=== PATIENT | female | born 1955 | race African-American/Black ===

== ENCOUNTER → 2016-04-26 | Outpatient (CLI) | payer OTHER ==
[~2016-04-26] MED LIST: ACYC800T PO; ALBU6.7H INH; AMLO5 PO; CARB1DRO RIGHT EYE; CIPR-9 PO; DOCU100C PO; ERYTOIN10 LEFT EYE; FERR83TA; FIBE625T10 PO; FLUT50SP EACH NARE; FURO20TA PO; HYDR25TA5 PO; KETO60IN6 IM; METH125I2 IM; MULTTAB24; NAPR220T9 PO; POTA99TA; PRED1 PO; PRED10 PO; PRED1SUS LEFT EYE; PRED1SUS6 LEFT EYE; PRED20 PO; PRED5TAB PO; TRAM50TA PO; TRIF1SOL3 LEFT EYE; ULTR50TA5 PO
[2016-04-26 10:08] LABS: AUTOMATED NEUTROPHIL # 7.2 TH/MM3 (1.8-7.7); BASOPHIL % 0.5 % (0.0-2.0); EOSINOPHIL # 0.2 TH/MM3 (0-0.4); EOSINOPHIL % 2.2 % (0.0-4.0); HEMATOCRIT 41.1 % (35.0-46.0); HEMO FLAGS AUTO DIFF; LYMPH % 15.5 % (9.0-44.0); LYMPHOCYTE # 1.4 TH/MM3 (1.0-4.8); MEAN CELL VOLUME 74.3 FL (80.0-100.0); MEAN CORPUSCULAR HEMOGLOBIN 24.2 PG (27.0-34.0); MEAN CORPUSCULAR HGB CONC 32.6 % (32.0-36.0); MONO % 4.2 % (0.0-8.0); NEUT % 77.6 % (16.0-70.0); PLATELET COUNT 189 TH/MM3 (150-450); RED BLOOD COUNT 5.53 MIL/MM3 (4.00-5.30); RED CELL DISTRIBUTION WIDTH 14.5 % (11.6-17.2); WHITE BLOOD COUNT 9.3 TH/MM3 (4.0-11.0)
[2016-04-26 10:27] LABS: ALT (GPT) 41 U/L (10-53); ANION GAP 10 MEQ/L (5-15); AST (GOT) 22 U/L (15-37); BICARBONATE 25.3 MEQ/L (21.0-32.0); BLOOD UREA NITROGEN 13 MG/DL (7-18); CHLORIDE 105 MEQ/L (98-107); GLOMERULAR FILTRATION RATE 83 ML/MIN (>89); GLUCOSE,FASTING 88 MG/DL (74-99); POTASSIUM 3.1 MEQ/L (3.5-5.1); SODIUM (NA) 140 MEQ/L (136-145)
[2016-04-26 10:37] LABS: ALKALINE PHOSPHATASE 69 U/L (45-117); HDL CHOLESTEROL 110.2 MG/DL (40.0-60.0); LDL CHOLESTEROL 70 MG/DL (0-99); TOTAL BILIRUBIN ADULT 0.5 MG/DL (0.2-1.0)
[2016-04-26 11:02] LABS: SCAN/DIFF AUTO DIFF CONFIRMED
== END ==
LOC: CLAB 09:21
PROVIDERS: ATTEND Family Medicine
DX: I50.9 Heart failure, unspecified (principal); J44.1 Chronic obstructive pulmonary disease with (acute) exacerbation; M54.30 Sciatica, unspecified side; F17.200 Nicotine dependence, unspecified, uncomplicated
CPT/HCPCS: 36415; 80053; 80061; 84443; 85025

== ENCOUNTER 2016-05-03 09:35 | Emergency (ER) | payer OTHER ==
[~2016-05-03] VITALS: Ht 160 cm; Wt 70.0 kg
[~2016-05-03 09:35] MED LIST changes: -ACYC800T PO; -AMLO5 PO; -CARB1DRO RIGHT EYE; -ERYTOIN10 LEFT EYE; -FIBE625T10 PO; -FLUT50SP EACH NARE; -HYDR25TA5 PO; -KETO60IN6 IM; -METH125I2 IM; -PRED1 PO; -PRED1SUS LEFT EYE; -PRED1SUS6 LEFT EYE; -PRED20 PO; -PRED5TAB PO; -TRAM50TA PO; -TRIF1SOL3 LEFT EYE; -ULTR50TA5 PO
[2016-05-03 09:53] VITALS: BP 169/78; PULSE 78; RESP 16; TEMP 98.4; O2SAT 97
[2016-05-03] MEDS ORDERED: PROPARACAINE HCL 0.5% OPHT SOLN 15 ML BTL EACH EYE ONE (11:15)
--- NOTE | 2016-05-03 11:19 | PD ---
HPI Chief Complaint: Eye Problems/Injury Time Seen by Provider: 11:16 Travel History International Travel<30 days: No Contact w/Intl Traveler<30days: No Traveled to known affect area: No History of Present Illness HPI 60-year-old female presents to the emergency department for evaluation of left eye pain, watery drainage, photophobia, foreign body sensation is started on Tuesday, 5 days ago, but has worsened. Patient states she was reading glasses , but denies any eye issues. Patient states that the pain has been worsening. Patient reports a history of COPD and takes prednisone, Lasix. Patient denies any eye pressure. She states her vision is blurry. PFSH Past Medical History Asthma: Yes Depression: Yes Heart Rhythm Problems: Yes (IRREGULAR HEART BEAT) Cardiac Catheterization: No Cardiovascular Problems: Yes COPD: Yes Diabetes: No Diminished Hearing: No Gastrointestinal Disorders: No Genitourinary: No Hypertension: No Musculoskeletal: Yes Neurologic: No Respiratory: No ?: Not Menopausal: Yes : 7 Para: 6 Tubal Ligation: Yes Past Surgical History Coronary Artery Bypass Graft: No Pacemaker: No Other Surgery: No Social History Alcohol Use: Yes (OCC) Tobacco Use: Yes (03/22 PPD) Substance Use: No Allergies-Medications (Allergen,Severity, Reaction): Coded Allergies: Lortab (Verified Allergy, Severe, ITCHING "BUT I CAN TAKE WITH A BENADRYL ", 05/03/16) Morphine (Verified Adverse Reaction, Severe, Nausea/Vomiting/ITCH, 05/03/16 ) Reported Meds & Prescriptions Reported Meds & Active Scripts Active Furosemide 20 Mg Tab 20 Mg PO DAILY Reported Prednisone 10 Mg Tab 10 Mg PO DAILY Multi For Her (Multiple Vitamins W/ Minerals) 1 Tab Tab Proventil Hfa 6.7 GM Inh (Albuterol Sulfate) 90 Mcg/Act Aer 2 Puff INH Q4-6H PRN Review of Systems Except as stated in HPI: all other systems reviewed are Neg Physical Exam Narrative GENERAL: Well-developed well-nourished female patient, ambulatory. Afebrile. SKIN: Warm and dry. HEAD: Normocephalic. Atraumatic. EYES: No scleral icterus. Mild erythematous to the right sclera. PERRLA. EOM intact. No consensual photophobia, patient has mild photophobia in the left eye. No hyphema. No foreign body on upper lid eversion. Fluorescein examination shows a corneal abrasion the 3 o'clock position. IOP is 20/100 in the right eye 14 the left eye. Visual acuity is 20/70 and the left eye and 20/ 20 in the right eye. NECK: Supple, trachea midline. No JVD or lymphadenopathy. CARDIOVASCULAR: Regular rate and rhythm without murmurs, gallops, or rubs. RESPIRATORY: Breath sounds equal bilaterally. No accessory muscle use. Lungs sounds are clear to auscultation. GASTROINTESTINAL: Abdomen soft, non-tender, nondistended. MUSCULOSKELETAL: No cyanosis, or edema. BACK: Nontender without obvious deformity. No CVA tenderness. Data Data Last Documented VS Vital Signs Date Time Temp Pulse Resp B/P Pulse Ox O2 Delivery O2 Flow Rate FiO2 05/03/16 09:53 98.4 78 16 169/78 97 Orders Proparacaine 0.5% Opth Soln (Alcaine 0.5 (05/03/16 11:15) MDM Medical Decision Making Medical Screen Exam Complete: Yes Emergency Medical Condition: Yes Medical Record Reviewed: Yes Differential Diagnosis Iritis versus acute glaucoma versus corneal abrasion versus corneal ulcer versus conjunctivitis versus foreign body Narrative Course 60-year-old female presents to the emergency department for evaluation of left eye pain, drainage, photophobia, blurry vision that started 5 days ago and has been worsening. Visual acuity is 20/200 and the left eye 20/20 in the right eye. IOP is 20/100 in the right eye of 14 in the left eye. Fluorescein examination shows a corneal abrasion over the 3 o'clock position. Visual acuity was rechecked once pain is relieved and patient is noted to have 20/70 visual acuity in the left eye. She'll be discharged with a prescription for erythromycin ophthalmic ointment, tramadol for pain. Patient states that Lortab and morphine make her itch. She denies any anaphylaxis reaction. She is instructed to follow-up with an maintenance technician 2nd shift. I given her the name and number of our maintenance technician 2nd shift on-call today, Dr. Lagos. Patient is instructed to return for any acute worsening of symptoms. Patient is agreeable. Diagnosis Primary Impression: Corneal abrasion, left Qualified Code: S05.02XA - Corneal abrasion, left, initial encounter Referrals: Griselda Lagos MD 2 days Patient Instructions: Corneal Abrasion (ED), General Instructions Additional Instructions: Use erythromycin eye ointment as directed. Avoid rubbing your eye. Take tramadol as instructed as needed for pain. Caution this can make you drowsy so do not drive after taking. Follow-up with an maintenance technician 2nd shift. Dr. Lagos is our maintenance technician 2nd shift on-call today. Please call her office today to make an appointment. Return to the emergency department for any acute worsening of symptoms. Med/Other Pt SpecificInfo: Prescription(s) given Scripts Erythromycin Opth Oint 5 Mg/Gm Oint1 Applic LEFT EYE QID #1 TUBE Ref 0 Prov:Aracelis Park 05/03/16 Tramadol 50 Mg Tab50 Mg PO Q6H PRN (PAIN) #16 TAB Ref 0 Prov:Marita Sanabria MD 05/03/16 Disposition: 01 DISCHARGE HOME Condition: Stable Aracelis Park May 03, 2016 11:19
[2016-05-03] MEDS ORDERED: TRAM50TA PO (12:03)
[2016-05-03] MEDS ORDERED: ERYTOIN10 LEFT EYE (12:12)
[2016-05-11] MEDS ORDERED: DOCU100C PO (10:13)
[2016-06-10] MEDS ORDERED: PRED1SUS LEFT EYE (08:57)
[2016-06-10] MEDS ORDERED: TRIF1SOL3 LEFT EYE (08:57)
[2016-06-15] MEDS ORDERED: PRED5TAB PO (10:25)
[2016-06-15] MEDS ORDERED: FLUT50SP EACH NARE (10:25)
[2016-06-22] MEDS ORDERED: ACYC800T PO (10:13)
[2016-06-22] MEDS ORDERED: PRED1SUS LEFT EYE (10:13)
[2016-07-15] MEDS ORDERED: PRED10 PO (10:45)
[2016-07-15] MEDS ORDERED: CARB1DRO RIGHT EYE (10:45)
[2016-07-15] MEDS ORDERED: PRED1SUS LEFT EYE (10:45)
[2016-07-22] MEDS ORDERED: FIBE625T10 PO (10:41)
[2016-07-22] MEDS ORDERED: PRED10 PO (10:58)
[2016-07-22] MEDS ORDERED: KETO60IN6 IM (10:59)
[2016-07-22] MEDS ORDERED: METH125I2 IM (10:59)
[2016-07-26] MEDS ORDERED: PRED1SUS6 LEFT EYE (10:05)
[2016-09-07] MEDS ORDERED: PRED10 PO (13:02)
[2016-09-16] MEDS ORDERED: PRED1SUS6 LEFT EYE (14:35)
[2016-09-16] MEDS ORDERED: PRED20 PO (15:15)
== END 2016-05-03 12:35 | disposition home or self-care (01) ==
LOC: NEPB 09:35
DX: H57.12 Ocular pain, left eye (principal); S05.02XA Injury of conjunctiva and corneal abrasion without foreign body, left eye, initial encounter; J44.9 Chronic obstructive pulmonary disease, unspecified; H53.8 Other visual disturbances; F17.210 Nicotine dependence, cigarettes, uncomplicated; J45.909 Unspecified asthma, uncomplicated
CPT/HCPCS: 99283

== ENCOUNTER 2016-05-08 12:31 | Emergency (ER) | payer OTHER ==
[~2016-05-08 12:31] MED LIST changes: -CIPR-9 PO; -DOCU100C PO; +ERYTOIN10 LEFT EYE; -FERR83TA; -NAPR220T9 PO; -POTA99TA; +TRAM50TA PO
[2016-05-08 12:39] VITALS: BP 167/67; PULSE 58; RESP 20; TEMP 97.5; O2SAT 94
--- NOTE | 2016-05-08 13:37 | PD ---
HPI Chief Complaint: Eye Problems/Injury Time Seen by Provider: 13:37 Travel History International Travel<30 days: No Contact w/Intl Traveler<30days: No Traveled to known affect area: No History of Present Illness HPI 60-year-old female presents to the emergency Department with complaint of continued left eye pain since Tuesday. She was seen here on Tuesday and diagnosed with a left corneal abrasion. She filled her prescription for erythromycin and started on Tuesday. She has had continued pain and clear drainage from her eye. She has been using the erythromycin since Tuesday as prescribed. She has not followed up with ophthalmology. She has prescription for tramadol for pain and says that it is not helping the pain. She has tried patching her eye with no improvement. She reports photophobia. Denies fever, chills, nausea, vomiting. Allergies to Lortab, morphine. No other modifying factors or associated signs and symptoms. PFSH Past Medical History Asthma: Yes Depression: Yes Heart Rhythm Problems: Yes (IRREGULAR HEART BEAT) Cardiac Catheterization: No Cardiovascular Problems: Yes COPD: Yes Diabetes: No Diminished Hearing: No Gastrointestinal Disorders: No Genitourinary: No Hypertension: No Musculoskeletal: Yes Neurologic: No Respiratory: No Menopausal: Yes : 7 Para: 6 Tubal Ligation: Yes Past Surgical History Coronary Artery Bypass Graft: No Pacemaker: No Other Surgery: No Social History Alcohol Use: Yes (OCC) Tobacco Use: Yes (/2 PPD) Substance Use: No Allergies-Medications (Allergen,Severity, Reaction): Coded Allergies: Lortab (Verified Allergy, Severe, ITCHING "BUT I CAN TAKE WITH A BENADRYL ", 05/08/16) Morphine (Verified Adverse Reaction, Severe, Nausea/Vomiting/ITCH, 05/08/16 ) Reported Meds & Prescriptions Reported Meds & Active Scripts Active Erythromycin Opth Oint 5 Mg/Gm Oint 1 Applic LEFT EYE QID Tramadol (Tramadol HCl) 50 Mg Tab 50 Mg PO Q6H PRN Furosemide 20 Mg Tab 20 Mg PO DAILY Reported Prednisone 10 Mg Tab 10 Mg PO DAILY Multi For Her (Multiple Vitamins W/ Minerals) 1 Tab Tab Proventil Hfa 6.7 GM Inh (Albuterol Sulfate) 90 Mcg/Act Aer 2 Puff INH Q4-6H PRN Review of Systems Except as stated in HPI: all other systems reviewed are Neg Physical Exam Narrative GENERAL: Well-nourished, well-developed -Maldivian female patient, in no acute distress SKIN: Warm and dry. HEAD: Atraumatic. Normocephalic. EYES: Pupils equal and round at 3 mm with brisk reaction. PERRLA. EOMI. Left lid eversion with no foreign body noted. Left eye with scleral erythema and no lid edema. No orbital tenderness, erythema or cellulitis. Left eye with photophobia. No consensual photophobia. No scleral icterus. Clear drainage. [place] lamp exam reveals a corneal abrasion strait across the iris and pupil from the 3:00 to 9 o'clock position. ENT: Mucosa pink and moist. Airway patent. NECK: Trachea midline. CARDIOVASCULAR: Regular rate. RESPIRATORY: No accessory muscle use. GASTROINTESTINAL: Rounded. NEUROLOGICAL: Awake and alert. Oriented 3. No obvious cranial nerve deficits. Motor grossly within normal limits. Normal speech. PSYCHIATRIC: Appropriate mood and affect; insight and judgment normal. Data Data Last Documented VS Vital Signs Date Time Temp Pulse Resp B/P Pulse Ox O2 Delivery O2 Flow Rate FiO2 05/08/16 12:39 97.5 58 20 167/67 94 Orders Proparacaine 0.5% Opth Soln (Alcaine 0.5 (05/08/16 14:15) Dressing, Oval Eye Pad Ea (05/08/16 14:05) Mandatory Outpatient Referral (05/08/16 14:05) [facility] Medical Decision Making Medical Screen Exam Complete: Yes Emergency Medical Condition: Yes Medical Record Reviewed: Yes Differential Diagnosis Corneal abrasion, medical clearance, pain management Narrative Course 60-year-old female with left corneal abrasion. She was seen on Tuesday for the same diagnosis. She has not followed up with ophthalmology. She started the erythromycin ointment on Tuesday and has not had improvement in pain. [place] lamp exam concludes left corneal abrasion over the iris and pupil. Patient has prescription for erythromycin ointment. Mandatory outpatient referral to ophthalmology ordered. Eye patch applied. Instructed patient to continue azithromycin as prescribed and to follow-up with ophthalmology first thing on Tuesday morning. Patient verbalized understanding and agreement with treatment plan. Patient has prescription for tramadol. Patient is medically cleared and stable for discharge. Discussed reasons to return to the emergency department. Instructed patient to follow up with primary care provider. Patient agrees with treatment plan. The patients vital signs are stable and the patient is stable for outpatient follow-up and treatment. Patient discharged home, stable and in no acute distress. Diagnosis Primary Impression: Corneal abrasion, left Qualified Code: S05.02XD - Corneal abrasion, left, subsequent encounter Referrals: Griselda Lagos MD Primary Care Physician Patient Instructions: Corneal Abrasion (ED), General Instructions Departure Forms: Tests/Procedures, Work Release Enter return to work date: May 11, 2016 Additional Instructions: Ibuprofen or Tylenol as directed and as needed to reduce pain Do not patch the eye Do not rub the eye Refrigerate eye drops as needed to reduce pain Cool compresses to the eye as needed to reduce pain Follow-up with ophthalmology on Tuesday; Dr. Angy Lagos information is provided in your discharge instructions. Call to make an appointment on Tuesday05/10/2016 morning. Primary care provider Return to the emergency department immediately with worsening of symptoms Med/Other Pt SpecificInfo: No Change to Meds, No Meds Exist/No RX given Disposition: DISCHARGE HOME Condition: Stable Jessica Silva May 08, 2016 13:37
[2016-05-08] MEDS ORDERED: PROPARACAINE HCL 0.5% OPHT SOLN 15 ML BTL LEFT EYE ONE (14:15)
[2016-05-11] MEDS ORDERED: DOCU100C PO (10:13)
[2016-06-10] MEDS ORDERED: PRED1SUS LEFT EYE (08:57)
[2016-06-10] MEDS ORDERED: TRIF1SOL3 LEFT EYE (08:57)
[2016-06-15] MEDS ORDERED: FLUT50SP EACH NARE (10:25)
[2016-06-15] MEDS ORDERED: PRED5TAB PO (10:25)
[2016-06-22] MEDS ORDERED: ACYC800T PO (10:13)
[2016-06-22] MEDS ORDERED: PRED1SUS LEFT EYE (10:13)
[2016-07-15] MEDS ORDERED: PRED10 PO (10:45)
[2016-07-15] MEDS ORDERED: PRED1SUS LEFT EYE (10:45)
[2016-07-15] MEDS ORDERED: CARB1DRO RIGHT EYE (10:45)
[2016-07-22] MEDS ORDERED: FIBE625T10 PO (10:41)
[2016-07-22] MEDS ORDERED: PRED10 PO (10:58)
[2016-07-22] MEDS ORDERED: METH125I2 IM (10:59)
[2016-07-22] MEDS ORDERED: KETO60IN6 IM (10:59)
[2016-07-26] MEDS ORDERED: PRED1SUS6 LEFT EYE (10:05)
[2016-09-07] MEDS ORDERED: PRED10 PO (13:02)
[2016-09-16] MEDS ORDERED: PRED1SUS6 LEFT EYE (14:35)
[2016-09-16] MEDS ORDERED: PRED20 PO (15:15)
== END 2016-05-08 14:27 | disposition home or self-care (01) ==
LOC: NEPB 12:31
DX: S05.02XD Injury of conjunctiva and corneal abrasion without foreign body, left eye, subsequent encounter (principal); F17.200 Nicotine dependence, unspecified, uncomplicated; Z87.09 Personal history of other diseases of the respiratory system; Z86.59 Personal history of other mental and behavioral disorders; Z86.79 Personal history of other diseases of the circulatory system; Z87.39 Personal history of other diseases of the musculoskeletal system and connective tissue; X58.XXXD Exposure to other specified factors, subsequent encounter
CPT/HCPCS: 99283

== ENCOUNTER 2016-05-21 09:49 | Inpatient (IN) | payer OTHER ==
[~2016-05-21] VITALS: Ht 160 cm; Wt 72.5 kg
[~2016-05-21 09:49] MED LIST changes: +DOCU100C PO
[2016-05-21 09:52] VITALS: BP 171/98; PULSE 76; RESP 20; TEMP 98; O2SAT 97
[2016-05-21 10:30] VITALS: BP 180/100; PULSE 62; RESP 16; O2SAT 95
--- NOTE | 2016-05-21 10:54 | PD ---
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 Griselda Lagos for IV acyclovir and pain control. Pt was evaluated by Dr. Lagos at her office today and is no improvement with patching and erythromycin ointment. I discussed with Dr. Lagos and she needs acyclovir IV/PO and ganciclovir gel but she cannot afford it and needs to be sent here for further management. Pt denies any fever, chest pain, sob, n/v, abdominal pain, focal weakness or numbness. PFSH Past Medical History Asthma: Yes Depression: Yes Heart Rhythm Problems: Yes (IRREGULAR HEART BEAT) Cardiac Catheterization: No Cardiovascular Problems: Yes COPD: Yes Diabetes: No Diminished Hearing: No Gastrointestinal Disorders: No Genitourinary: No Hypertension: No Musculoskeletal: Yes Neurologic: No Respiratory: No Tetanus Vaccination: > 5 Years Influenza Vaccination: Yes Menopausal: Yes : 7 Para: 6 Tubal Ligation: Yes Past Surgical History Coronary Artery Bypass Graft: No Pacemaker: No Other Surgery: No Family History Family Myocardial Infarction: Yes (Mother at 53 from [place]) Social History Alcohol Use: Yes (OCC) Tobacco Use: Yes (2 PPD) Substance Use: No Allergies-Medications (Allergen,Severity, Reaction): Coded Allergies: Lortab (Verified Allergy, Severe, ITCHING "BUT I CAN TAKE WITH A BENADRYL ", 05/21/16) Morphine (Verified Adverse Reaction, Severe, Nausea/Vomiting/ITCH, 05/21/16) Reported Meds & Prescriptions Reported Meds & Active Scripts Active Erythromycin Opth Oint 5 Mg/Gm Oint 1 Applic LEFT EYE QID Tramadol (Tramadol HCl) 50 Mg Tab 50 Mg PO Q6H PRN Furosemide 20 Mg Tab 20 Mg PO DAILY Reported Docusate Sodium 100 Mg Cap 300 Mg PO DAILY Prednisone 10 Mg Tab 10 Mg PO DAILY Multi For Her (Multiple Vitamins W/ Minerals) 1 Tab Tab Proventil Hfa 6.7 GM Inh (Albuterol Sulfate) 90 Mcg/Act Aer 2 Puff INH Q4-6H PRN Review of Systems Except as stated in HPI: all other systems reviewed are Neg Physical Exam Narrative GENERAL: 60yo F in distress. SKIN: Warm and dry. HEAD: Atraumatic. Normocephalic. EYES: Left eye: Hazy cornea with injected conjunctiva. +Irregular large fluorescein uptake in middle of cornea in left eye. CARDIOVASCULAR: Regular rate and rhythm. No murmur appreciated. RESPIRATORY: No accessory muscle use. Clear to auscultation. Breath sounds equal bilaterally. GASTROINTESTINAL: Abdomen soft, non-tender, nondistended. Hepatic and splenic margins not palpable. MUSCULOSKELETAL: No obvious deformities. No clubbing. No cyanosis. No edema. NEUROLOGICAL: Awake and alert. No obvious cranial nerve deficits. Motor grossly within normal limits. Normal speech. PSYCHIATRIC: Appropriate mood and affect; insight and judgment normal. Data Data Last Documented VS Vital Signs Date Time Temp Pulse Resp B/P Pulse Ox O2 Delivery O2 Flow Rate FiO2 05/21/16 10:32 62 16 05/21/16 10:30 180/100 95 Room Air 05/21/16 09:52 98.0 Orders Complete Blood Count With Diff (05/21/16 10:44) Basic Metabolic Panel (Bmp) (05/21/16 10:44) Acyclovir Inj (Zovirax Inj) (05/21/16 11:00) Ketorolac Inj (Toradol Inj) (05/21/16 11:00) Consult Ophthalmology (05/21/16 ) (Hub Use Only)Inp Phy Cons/Ref (05/21/16 ) Labs Laboratory Tests Test 05/21/16 11:02 White Blood Count 9.9 TH/MM3 Red Blood Count 5.42 MIL/MM3 Hemoglobin 13.0 GM/DL Hematocrit 41.4 % Mean Corpuscular Volume 76.4 FL Mean Corpuscular Hemoglobin 24.0 PG Mean Corpuscular Hemoglobin 31.4 % Concent Red Cell Distribution Width 14.2 % Platelet Count 213 TH/MM3 Mean Platelet Volume 9.3 FL Neutrophils (%) (Auto) 65.4 % Lymphocytes (%) (Auto) 26.2 % Monocytes (%) (Auto) 6.3 % Eosinophils (%) (Auto) 1.7 % Basophils (%) (Auto) 0.4 % Neutrophils # (Auto) 6.5 TH/MM3 Lymphocytes # (Auto) 2.6 TH/MM3 Monocytes # (Auto) 0.6 TH/MM3 Eosinophils # (Auto) 0.2 TH/MM3 Basophils # (Auto) 0.0 TH/MM3 CBC Comment AUTO DIFF Differential Comment AUTO DIFF CONFIRMED Ovalocytes 2+ Sodium Level 140 MEQ/L Potassium Level 3.8 MEQ/L Chloride Level 109 MEQ/L Carbon Dioxide Level 20.4 MEQ/L Anion Gap 11 MEQ/L Blood Urea Nitrogen 11 MG/DL Creatinine 0.80 MG/DL Estimat Glomerular Filtration 89 ML/MIN Rate Random Glucose 86 MG/DL Calcium Level 9.0 MG/DL MDM Medical Decision Making Medical Screen Exam Complete: Yes Emergency Medical Condition: Yes Differential Diagnosis Herpes simplex keratitis Narrative Course 60yo F sent in by special technical operations officer for IV acyclovir and treatment for severe herpes simplex keratitis. I discussed with Dr. Lagos and she states that she will follow the patient while she is inpatient. Pt given toradol which helped with pain. Pt given given acyclovir 800mg IV. Labs reviewed, no leukocytosis. BMP unremarkable. Discussed with resident physician and accepted to their service. Diagnosis Primary Impression: Herpes simplex keratitis of left eye Admitting Information Admitting Physician Requests: it Aishwarya Nathan DO May 21, 2016 10:54
[2016-05-21] MEDS ORDERED: SODIUM CHLORIDE 0.9% IV ONE (11:00)
[2016-05-21] MEDS ORDERED: ACYCLOVIR IV ONE (11:00)
[2016-05-21] MEDS ORDERED: KETOROLAC TROMETHAMINE 30 MG/ML (IVP) VIAL IV PUSH ONE (11:00)
[2016-05-21 11:16] LABS: AUTOMATED NEUTROPHIL # 6.5 TH/MM3 (1.8-7.7); BASOPHIL % 0.4 % (0.0-2.0); EOSINOPHIL # 0.2 TH/MM3 (0-0.4); EOSINOPHIL % 1.7 % (0.0-4.0); HEMATOCRIT 41.4 % (35.0-46.0); LYMPH % 26.2 % (9.0-44.0); LYMPHOCYTE # 2.6 TH/MM3 (1.0-4.8); MEAN CELL VOLUME 76.4 FL (80.0-100.0); MEAN CORPUSCULAR HGB CONC 31.4 % (32.0-36.0); MONO % 6.3 % (0.0-8.0); NEUT % 65.4 % (16.0-70.0); PLATELET COUNT 213 TH/MM3 (150-450); RED BLOOD COUNT 5.42 MIL/MM3 (4.00-5.30); RED CELL DISTRIBUTION WIDTH 14.2 % (11.6-17.2); WHITE BLOOD COUNT 9.9 TH/MM3 (4.0-11.0)
[2016-05-21 11:17] LABS: HEMO FLAGS AUTO DIFF
[2016-05-21 11:26] LABS: BICARBONATE 20.4 MEQ/L (21.0-32.0); POTASSIUM 3.8 MEQ/L (3.5-5.1)
--- NOTE | 2016-05-21 11:44 | PD.CONS ---
History of Present Illness Service Ophthalmology Consult Requested By ED - Dr. Nathan Reason for Consult left eye HSV keratitis Primary Care Physician Carmel Raphael MD Diagnoses: History of Present Illness 60 yo F whom I've been following in my outpatient office the last 10 days for a left corneal abrasion. She states that she felt something fly into her eye and rubbed it and started having left eye irritation right after that. When I saw her on 05/10/16 she had a 5x5 mm corneal abrasion which we treated with erythromycin ointment and patching. It has progressively gotten worse since then , which makes it likely that there is an underlying HSV component. She presented to the office today in severe pain - she needs to be treated with oral acyclovir, ganciclovir gel, and pain control but states she cannot afford the medications so I sent her to [facility] for further care. Past Family Social History Allergies: Coded Allergies: Lortab (Verified Allergy, Severe, ITCHING "BUT I CAN TAKE WITH A BENADRYL ", 05/21/16) Morphine (Verified Adverse Reaction, Severe, Nausea/Vomiting/ITCH, 05/21/16) Physical Exam Vital Signs Vital Signs Date Time Temp Pulse Resp B/P Pulse Ox O2 Delivery O2 Flow Rate FiO2 05/21/16 10:32 62 16 05/21/16 10:30 62 16 180/100 95 Room Air 05/21/16 09:52 98.0 76 20 171/98 97 Room Air Physical Exam Va sc at near OD 20/20, OS 20/400 EOM full OU, no diplopia CVF full OU Pupils 2-1 no APD OU IOP deferred Anterior exam OD - normal eyelid, C/S W&Q, K clear, AC deep, pupil round, lens clear OS - eyelid edema, conj injection and chemosis, corneal edema and 8x8 mm epithelial defect, AC deep, pupil round, lens clear Laboratory Laboratory Tests Test 05/21/16 11:02 White Blood Count 9.9 Red Blood Count 5.42 Hemoglobin 13.0 Hematocrit 41.4 Mean Corpuscular Volume 76.4 Mean Corpuscular Hemoglobin 24.0 Mean Corpuscular Hemoglobin 31.4 Concent Red Cell Distribution Width 14.2 Platelet Count 213 Mean Platelet Volume 9.3 Neutrophils (%) (Auto) 65.4 Lymphocytes (%) (Auto) 26.2 Monocytes (%) (Auto) 6.3 Eosinophils (%) (Auto) 1.7 Basophils (%) (Auto) 0.4 Neutrophils # (Auto) 6.5 Lymphocytes # (Auto) 2.6 Monocytes # (Auto) 0.6 Eosinophils # (Auto) 0.2 Basophils # (Auto) 0.0 CBC Comment AUTO DIFF Sodium Level 140 Potassium Level 3.8 Chloride Level 109 Carbon Dioxide Level 20.4 Anion Gap 11 Blood Urea Nitrogen 11 Creatinine 0.80 Estimat Glomerular Filtration 89 Rate Random Glucose 86 Calcium Level 9.0 Result Diagram: 05/21/16 1102 05/21/16 1102 Assessment and Plan Problem List: (1) Herpes simplex keratitis of left eye Status: Acute Plan: Start IV Acyclovir 800 mg 5x/day, Ganciclovir gel in left eye 5 times a day, and pain control per primary team. Will follow daily. Griselda Lagos MD May 21, 2016 11:44
[2016-05-21 11:50] LABS: OVALOCYTES 2+ (NORMAL)
[2016-05-21 11:51] LABS: SCAN/DIFF AUTO DIFF CONFIRMED
--- NOTE | 2016-05-21 12:33 | HHI.HP ---
[facility] Service Family Medicine Primary Care Physician Carmel Raphael MD Admission Diagnosis Diagnoses: International Travel<30 Days: No Contact w/Intl Traveler<30days: No Known Affected Area: No History of Present Illness Patient is a 60-year-old female with a PMH significant for asthma/COPD. Presented here today from ophthalmology office due to worsening left eye pain. Patient is under the care of Dr. Lagos. She had been following Dr. Lagos due to left corneal abrasion that progressively worsened despite erythromycin ointment and patching. She was then found to have an underlying HSV component. Today she reports that her left eye pain has increased to the point that it is uncontrollable. Left eye pain is described as throbbing which then involves her entire head and neck. Light makes the pain worse but tramadol has been helping making light more tolerable. She otherwise is asymptomatic. She reports that she is able to see light, shapes, movement but unable to visualize detail with the left eye. Right eye will become fatigued due to overuse but otherwise vision is unchanged except for new onset floaters. (Sarahi Olmedo MD R2) Review of Systems Other ROS negative 10 except per history of present illness (Sarahi Olmedo MD R2) Past Family Social History Past Medical History Asthma/COPD-on prednisone Chronic Low back pain with left sciatica Illicit substance abuse Past Surgical History Spinal surgery of lower back 2002 Reported Medications Reported Meds & Active Scripts Active Erythromycin Opth Oint 5 Mg/Gm Oint 1 Applic LEFT EYE QID Tramadol (Tramadol HCl) 50 Mg Tab 50 Mg PO Q6H PRN Furosemide 20 Mg Tab 20 Mg PO DAILY Reported Docusate Sodium 100 Mg Cap 300 Mg PO DAILY Prednisone 10 Mg Tab 10 Mg PO DAILY Multi For Her (Multiple Vitamins W/ Minerals) 1 Tab Tab Proventil Hfa 6.7 GM Inh (Albuterol Sulfate) 90 Mcg/Act Aer 2 Puff INH Q4-6H PRN (Sarahi Olmedo MD R2) Allergies: Coded Allergies: Lortab (Verified Allergy, Severe, ITCHING "BUT I CAN TAKE WITH A BENADRYL ", 05/21/16) Morphine (Verified Adverse Reaction, Severe, Nausea/Vomiting/ITCH, 05/21/16) Family History Mother: from [place] in her 50s Father: from being hit by a car 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 Marijuana: 1-2x/week No history of IV drugs Smoked crack in the past, last use 5yrs ago. (Sarahi Olmedo MD R2) Physical Exam Vital Signs Vital Signs Date Time Temp Pulse Resp B/P Pulse Ox O2 Delivery O2 Flow Rate FiO2 05/21/16 10:32 62 16 05/21/16 10:30 62 16 180/100 95 Room Air 05/21/16 09:52 98.0 76 20 171/98 97 Room Air Physical Exam GENERAL: This is a well-nourished, well-developed patient, in no apparent distress. SKIN: No rashes, ecchymoses or lesions. Cool and dry. EYES: Full examination limited due to pain with light. Left eye with periorbital swelling and conjunctival erythema. Extraocular movements otherwise intact. Able to see movement, light, shapes with left eye but without detail. Right eye unremarkable. ENT: Nose without bleeding, purulent drainage or septal hematoma. Throat without erythema, tonsillar hypertrophy or exudate. Uvula midline. Airway patent. NECK: No lymphadenopathy. CARDIOVASCULAR: Regular rate and rhythm without murmurs, gallops, or rubs. RESPIRATORY: Clear to auscultation. Breath sounds equal bilaterally. No wheezes , rales, or rhonchi. GASTROINTESTINAL: Abdomen soft, non-tender, nondistended. No hepato-splenomegaly , or palpable masses. No guarding. MUSCULOSKELETAL: Extremities without clubbing, cyanosis, or edema. No calf tenderness. NEUROLOGICAL: Awake and alert. Motor and sensory grossly within normal limits.Normal speech. Laboratory Laboratory Tests Test 05/21/16 11:02 White Blood Count 9.9 Red Blood Count 5.42 Hemoglobin 13.0 Hematocrit 41.4 Mean Corpuscular Volume 76.4 Mean Corpuscular Hemoglobin 24.0 Mean Corpuscular Hemoglobin 31.4 Concent Red Cell Distribution Width 14.2 Platelet Count 213 Mean Platelet Volume 9.3 Neutrophils (%) (Auto) 65.4 Lymphocytes (%) (Auto) 26.2 Monocytes (%) (Auto) 6.3 Eosinophils (%) (Auto) 1.7 Basophils (%) (Auto) 0.4 Neutrophils # (Auto) 6.5 Lymphocytes # (Auto) 2.6 Monocytes # (Auto) 0.6 Eosinophils # (Auto) 0.2 Basophils # (Auto) 0.0 CBC Comment AUTO DIFF Differential Comment AUTO DIFF CONFIRMED Ovalocytes 2+ Sodium Level 140 Potassium Level 3.8 Chloride Level 109 Carbon Dioxide Level 20.4 Anion Gap 11 Blood Urea Nitrogen 11 Creatinine 0.80 Estimat Glomerular Filtration 89 Rate Random Glucose 86 Calcium Level 9.0 (Sarahi Olmedo MD R2) Result Diagram: 05/21/16 1102 05/21/16 1102 Assessment and Plan Assessment and Plan 60-year-old female with PMH significant for asthma/COPD. Admitted for severe left eye HSV keratitis Code Status Full Discussed Condition With Dr. Maharaj (Sarahi Olmedo MD R2) Attending Attestation Patient seen and examined. Case reviewed and discussed with the resident team. Agree with plan of care as discussed with me and documented in the resident note. 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 Lagos, marriage and family social worker. Treatment has been resistant over the last couple weeks. Due to worsening symptoms and continued pain, was referred to the ED for admission as patient needed IV antibiotics. -Consider head CT if patient worsens clinically or has more severe headaches despite pain control -Pain control with tramadol and Toradol for breakthrough -Ganciclovir gel is not in stock in the hospital. Calling pharmacy to see if it can be obtained Ophthalmology consulted: Appreciate recommendations * Left eye: eyelid edema, conj injection and chemosis, corneal edema and 8x8 mm epithelial defect * Start IV Acyclovir 800 mg 5x/day, Ganciclovir gel in left eye 5 times a day, and pain control per primary team. Will follow daily (2) COPD (chronic obstructive pulmonary disease) Status: Acute Plan: Long history of smoking and conjunction with a history of asthma. She also reports a history of pleural effusion/edema for which she takes Lasix daily -Continue home prednisone 10 mg daily and Lasix -Albuterol and Duonebs as needed -Incentive spirometry -Nicotine patch (3) Nutrition, metabolism, and development symptoms Status: Acute Plan: Diet: Regular Electrolytes: Unremarkable Fluids: None DVT prophylaxis: Lovenox GI prophylaxis: Protonix due to chronic prednisone use Chronic Conditions: * Alcohol use: CIWA protocol (Sarahi Olmedo MD R2) Physician Certification 2 Midnight Certification Type: Admission for Inpatient Services Order for Inpatient Services The services are ordered in accordance with Medicare regulations or non- Medicare payer requirements, as applicable. In the case of services not specified as inpatient-only, they are appropriately provided as inpatient services in accordance with the 2-midnight benchmark. Estimated LOS (days): 2 days is the estimated time the patient will need to remain in the hospital, assuming treatment plan goals are met and no additional complications. Post-Hospital Plan: Home (Sarahi Olmedo MD R2) Problem Qualifiers (1) COPD (chronic obstructive pulmonary disease): Qualified Code: J44.9 - Chronic obstructive pulmonary disease, unspecified COPD type Sarahi Olmedo MD R2 May 21, 2016 12:33 Jovanna Maharaj MD May 22, 2016 15:31
[2016-05-21] MEDS ORDERED: SODIUM CHLORIDE 0.9% FLUSH 5 ML FLUSH FLUSH PRN (13:15)
[2016-05-21] MEDS ORDERED: NALOXONE HCL 0.4 MG/ML AMP IV PRN ×2 (13:15)
[2016-05-21] MEDS ORDERED: ACETAMINOPHEN 325 MG TAB PO PRN (13:15)
[2016-05-21] MEDS ORDERED: ONDANSETRON HCL 4 MG/2 ML VIAL IVP PRN (13:15)
[2016-05-21] MEDS ORDERED: KETOROLAC TROMETHAMINE 30 MG/ML (IVP) VIAL IV PUSH PRN (13:30)
[2016-05-21] MEDS ORDERED: RESP: ALBUTEROL 2.5 MG/3 ML NEB (PRN) INH (13:30)
[2016-05-21] MEDS ORDERED: RESP: ALBUTEROL 2.5 MG/IPRATROPIUM 0.5 MG NEB (PRN) INH (13:30)
[2016-05-21] MEDS: NICOTINE 21 MG/24 HR PATCH TD SCH (13:43)
[2016-05-21] MEDS: predniSONE 10 MG TAB PO SCH (13:43)
[2016-05-21] MEDS: ENOXAPARIN SODIUM 40 MG/0.4 ML SYRINGE SQ SCH (13:43)
[2016-05-21] MEDS ORDERED: FLUMAZENIL 0.5 MG/5 ML VIAL IV PUSH PRN (13:45)
[2016-05-21] MEDS ORDERED: LORazepam 2 MG TAB PO PRN (13:45)
[2016-05-21] MEDS ORDERED: LORazepam 2 MG/ML VIAL IV PUSH PRN ×4 (13:45)
[2016-05-21] MEDS ORDERED: DOCUSATE SODIUM 100 MG CAP PO PRN (14:00)
[2016-05-21 14:59] VITALS: BP 150/80; PULSE 52; RESP 18; O2SAT 99
[2016-05-21] MEDS ORDERED: SODIUM CHLORIDE 0.9% IV SCH (15:00)
[2016-05-21] MEDS ORDERED: ACYCLOVIR IV SCH (15:00)
[2016-05-21] MEDS: traMADol HCL 50 MG TAB PO PRN (17:34)
[2016-05-21] MEDS: ACYCLOVIR 800 MG TAB PO SCH ×2 (17:36→23:14)
[2016-05-21 20:00] VITALS: BP_SYST 180; BP_SYST 200; BP_DIAS 108; BP_DIAS 82; PULSE 77; RESP 24; TEMP 97.1; O2SAT 55; O2SAT 95
[2016-05-21] MEDS: ENALAPRILAT 1.25 MG/ML VIAL IV PRN (23:13)
[2016-05-21] MEDS: SODIUM CHLORIDE 0.9% FLUSH 5 ML FLUSH FLUSH SCH (23:16)
[2016-05-22] VITALS: BP 173/80; PULSE 60; RESP 18; TEMP 98.7; O2SAT 96
[2016-05-22 04:00] VITALS: BP 137/92; PULSE 60; RESP 60; TEMP 98.8; O2SAT 96
[2016-05-22] MEDS: traMADol HCL 50 MG TAB PO PRN ×3 (04:32→17:43)
[2016-05-22] MEDS: ACYCLOVIR 800 MG TAB PO SCH ×5 (05:58→21:02)
[2016-05-22 08:10] VITALS: BP 182/80; PULSE 48; RESP 20; TEMP 96.8; O2SAT 94
[2016-05-22 08:20] LABS: ALT (GPT) 46 U/L (10-53); ANION GAP 9 MEQ/L (5-15); AST (GOT) 29 U/L (15-37); BICARBONATE 27.1 MEQ/L (21.0-32.0); BLOOD UREA NITROGEN 9 MG/DL (7-18); CHLORIDE 104 MEQ/L (98-107); GLOMERULAR FILTRATION RATE 97 ML/MIN (>89); POTASSIUM 3.3 MEQ/L (3.5-5.1); SODIUM (NA) 140 MEQ/L (136-145)
[2016-05-22 08:22] LABS: ALKALINE PHOSPHATASE 60 U/L (45-117); TOTAL BILIRUBIN ADULT 0.4 MG/DL (0.2-1.0)
[2016-05-22] MEDS: REMOVE OLD PATCH TD SCH (09:00)
[2016-05-22] MEDS: SODIUM CHLORIDE 0.9% FLUSH 5 ML FLUSH FLUSH SCH ×2 (09:25→20:56)
[2016-05-22] MEDS: TRIFLURIDINE 1% LEFT EYE SCH ×6 (09:25→23:33)
[2016-05-22] MEDS: NICOTINE 21 MG/24 HR PATCH TD SCH (09:26)
[2016-05-22] MEDS: predniSONE 10 MG TAB PO SCH (09:27)
[2016-05-22] MEDS: ENALAPRILAT 1.25 MG/ML VIAL IV PRN (09:27)
[2016-05-22] MEDS: FUROSEMIDE 20 MG TAB PO SCH (09:28)
[2016-05-22] MEDS: PANTOPRAZOLE SOD 40 MG DELAYED RELEASE TAB PO SCH (09:28)
[2016-05-22] MEDS ORDERED: PNEUMOCOCCAL POLYVALENT INJ 25 MCG/0.5 ML SYR IM ONE (10:00)
[2016-05-22] MEDS: ENOXAPARIN SODIUM 40 MG/0.4 ML SYRINGE SQ SCH (11:33)
[2016-05-22 12:12] VITALS: BP 179/86; PULSE 51; RESP 20; TEMP 97.1
--- NOTE | 2016-05-22 15:29 | HHI.HP ---
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 Presented here today from ophthalmology office due to worsening left eye pain. Patient is under the care of Dr. Lagos. She had been following Dr. Lagos due to left corneal abrasion that progressively worsened despite erythromycin ointment and patching. She was then found to have an underlying HSV component. On admission, she reports that her left eye pain had increased to the point that it is uncontrollable. Left eye pain is described as throbbing which then involves her entire head and neck. Light makes the pain worse but tramadol has been helping making light more tolerable. She otherwise is asymptomatic. She reports that she is able to see light, shapes, movement but unable to visualize detail with the left eye. Right eye will become fatigued due to overuse but otherwise vision is unchanged except for new onset floaters. She is still having problems with vision and can basically see "silhouettes" as she describes it with her left eye but cannot see any details or count fingers. She still has increased pain with light and even when light is shined into the left eye her right eye hurts more. Yesterday in the ED, she appeared to have a few healing vesicles which are barely visible today as they appeared to be continuing to heal. She does have shingles-like pain with shooting pains on left upper face and ear at times. There was some indecision about what dosing and frequency to use on her meds and appreciate help of Dr Lagos with that. 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 Marijuana: 1-2x/week No history of IV drugs Smoked crack in the past, last use 5yrs ago. Physical Exam Vital Signs Vital Signs Date Time Temp Pulse Resp B/P Pulse Ox O2 Delivery O2 Flow Rate FiO2 05/22/16 12:12 97.1 51 20 179/86 05/22/16 08:10 96.8 48 20 182/80 94 05/22/16 05:32 16 05/22/16 04:00 98.8 60 60 137/92 96 05/22/16 00:00 98.7 60 18 173/80 96 05/21/16 20:00 97.1 77 24 200/108 95 05/21/16 20:00 180/82 55 Physical Exam GENERAL: This is a well-nourished, well-developed patient, in no apparent distress except for pain in her eye SKIN: No rashes, ecchymoses or lesions except some slight healing lesions near left eye which may have been healing vesicles. No new vesicles, just scabbed over. Cool and dry. EYES: Full examination limited due to pain with light. Left eye with periorbital swelling and conjunctival erythema. Extraocular movements otherwise intact. Able to see movement, light, shapes with left eye but without detail. Right eye unremarkable. ENT: Nose without bleeding, purulent drainage or septal hematoma. Throat without erythema, tonsillar hypertrophy or exudate. Uvula midline. Airway patent. NECK: No lymphadenopathy. CARDIOVASCULAR: Regular rate and rhythm without murmurs, gallops, or rubs. RESPIRATORY: Clear to auscultation. Breath sounds equal bilaterally. No wheezes , rales, or rhonchi. GASTROINTESTINAL: Abdomen soft, non-tender, nondistended. No hepato-splenomegaly , or palpable masses. No guarding. MUSCULOSKELETAL: Extremities without clubbing, cyanosis, or edema. No calf tenderness. NEUROLOGICAL: Awake and alert. Motor and sensory grossly within normal limits.Normal speech. Laboratory Laboratory Tests Test 05/22/16 06:20 Sodium Level 140 Potassium Level 3.3 Chloride Level 104 Carbon Dioxide Level 27.1 Anion Gap 9 Blood Urea Nitrogen 9 Creatinine 0.74 Estimat Glomerular Filtration 97 Rate Random Glucose 79 Calcium Level 9.0 Total Bilirubin 0.4 Aspartate Amino Transf 29 (AST/SGOT) Alanine Aminotransferase 46 (ALT/SGPT) Alkaline Phosphatase 60 Total Protein 6.9 Albumin 3.5 Result Diagram: 05/21/16 1102 05/22/16 0620 Assessment and Plan Assessment and Plan 60-year-old female with PMH significant for asthma/COPD on chronic steroids. 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 Lagos, digitizer. Treatment has been resistant over the last couple weeks. Due to worsening symptoms and continued pain, was referred to the ED for admission as patient needed IV antibiotics. -Consider head CT if patient worsens clinically or has more severe headaches despite pain control -Pain control with tramadol and Toradol for breakthrough -Ganciclovir gel is not in stock in the hospital. Called pharmacy to see if it can be obtained, other med substituted Ophthalmology consulted: Appreciate recommendations * Left eye: eyelid edema, conj injection and chemosis, corneal edema and 8x8 mm epithelial defect * Start po Acyclovir 800 mg 5x/day, Ganciclovir gel in left eye 5 times a day, and pain control per primary team. Will follow daily. unclear from discussions with Dr Ford if iv vs po but the po was dosed 5 x per day and not the iv and they both had good blood levels (2) COPD (chronic obstructive pulmonary disease) Status: Acute Plan: Long history of smoking and conjunction with a history of asthma. She also reports a history of pleural effusion/edema for which she takes Lasix daily -Continue home prednisone 10 mg daily and Lasix. advised her that penitentiary prednisone can have many adverse effects and that she should strongly consider slowly decreasing as an outpt -Albuterol and Duonebs as needed -Incentive spirometry -Nicotine patch (3) Nutrition, metabolism, and development symptoms Status: Acute Plan: Diet: Regular Electrolytes: Unremarkable Fluids: None DVT prophylaxis: Lovenox GI prophylaxis: Protonix due to chronic prednisone use Chronic Conditions: * Alcohol use: [facility] protocol Physician Certification 2 Midnight Certification Type: Admission for Inpatient Services Order for Inpatient Services The services are ordered in accordance with Medicare regulations or non- Medicare payer requirements, as applicable. In the case of services not specified as inpatient-only, they are appropriately provided as inpatient services in accordance with the 2-midnight benchmark. Estimated LOS (days): 3 3 days is the estimated time the patient will need to remain in the hospital, assuming treatment plan goals are met and no additional complications. Post-Hospital Plan: Home Problem Qualifiers (1) COPD (chronic obstructive pulmonary disease): Qualified Code: J44.9 - Chronic obstructive pulmonary disease, unspecified COPD type Jovanna Maharaj MD May 22, 2016 15:29
[2016-05-22 16:20] VITALS: BP 167/74; PULSE 53; RESP 20; TEMP 96.7
--- NOTE | 2016-05-22 16:20 | HHI.PR ---
Subjective Remarks Still in significant pain in left eye. Has it covered most of the time. Objective Vital Signs Date Time Temp Pulse Resp B/P Pulse Ox O2 Delivery O2 Flow Rate FiO2 05/22/16 12:12 97.1 51 20 179/86 05/22/16 08:10 96.8 48 20 182/80 94 05/22/16 05:32 16 05/22/16 04:00 98.8 60 60 137/92 96 05/22/16 00:00 98.7 60 18 173/80 96 05/21/16 20:00 97.1 77 24 200/108 95 05/21/16 20:00 180/82 55 Result Diagram: 05/21/16 1102 05/22/16 0620 Objective Remarks Va OS CF at 3 ft EOM full OU, no diplopia CVF full OU Pupils 2-1 no APD OU IOP deferred Anterior exam OS - lid edema, conj injection, 7x7 mm irregular epi defect on cornea, AC hazy, pupil round, lens clear Assessment and Plan Problem List: (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 Cont Acyclovir 800 mg 5x/day (Day 2), Trifluridine q3h OS (Day 1), and pain control per primary team. Will follow daily. Griselda Lagos MD May 22, 2016 16:20
[2016-05-22] MEDS ORDERED: POTASSIUM CHLORIDE 10 MEQ CONTROLLED RELEASE TAB PO ONE (17:15)
[2016-05-22] MEDS: HYDROCHLOROTHIAZIDE 12.5 MG CAP PO SCH (17:43)
[2016-05-22 20:00] VITALS: BP 179/86; PULSE 59; RESP 18; TEMP 97.6; O2SAT 94
[2016-05-22] MEDS: LORazepam 1 MG TAB PO PRN (22:12)
[2016-05-23] VITALS: BP 146/65; PULSE 64; RESP 20; TEMP 98; O2SAT 97
[2016-05-23] MEDS: TRIFLURIDINE 1% LEFT EYE SCH ×7 (03:09→21:39)
[2016-05-23 04:00] VITALS: BP 142/80; PULSE 49; RESP 22; TEMP 98.4; O2SAT 94
[2016-05-23] MEDS: ACYCLOVIR 800 MG TAB PO SCH ×5 (05:45→21:39)
[2016-05-23 07:47] VITALS: BP 126/67; PULSE 55; RESP 20; TEMP 97.6; O2SAT 97
[2016-05-23] MEDS: SODIUM CHLORIDE 0.9% FLUSH 5 ML FLUSH FLUSH SCH ×2 (08:41→21:39)
[2016-05-23] MEDS: HYDROCHLOROTHIAZIDE 12.5 MG CAP PO SCH (08:41)
[2016-05-23] MEDS: PANTOPRAZOLE SOD 40 MG DELAYED RELEASE TAB PO SCH (08:41)
[2016-05-23] MEDS: traMADol HCL 50 MG TAB PO PRN ×3 (08:42→19:04)
[2016-05-23] MEDS: predniSONE 10 MG TAB PO SCH (08:42)
[2016-05-23] MEDS: FUROSEMIDE 20 MG TAB PO SCH (08:42)
[2016-05-23] MEDS: NICOTINE 21 MG/24 HR PATCH TD SCH (08:43)
[2016-05-23] MEDS: REMOVE OLD PATCH TD SCH (08:43)
[2016-05-23] MEDS: LORazepam 1 MG TAB PO PRN (08:47)
[2016-05-23 10:28] LABS: BICARBONATE 25.5 MEQ/L (21.0-32.0); POTASSIUM 3.1 MEQ/L (3.5-5.1)
--- NOTE | 2016-05-23 11:58 | HHI.FPPN ---
Subjective Remarks No acute events overnight. BP remains elevated in the 170s systolic. Otherwise VS unremarkable. This morning patient reports that her pain is well- controlled but does feel like she may needed a little bit more often. She also reports improvement in her left eye in relation to pain. Otherwise asymptomatic. (Sarahi Olmedo MD R2) Objective Vitals Vital Signs Date Time Temp Pulse Resp B/P Pulse Ox O2 Delivery O2 Flow Rate FiO2 05/23/16 07:47 97.6 55 20 126/67 97 05/23/16 04:00 98.4 49 22 142/80 94 05/23/16 00:00 98.0 64 20 146/65 97 05/22/16 20:00 97.6 59 18 179/86 94 05/22/16 16:20 96.7 53 20 167/74 05/22/16 12:12 97.1 51 20 179/86 I/O 05/22/16 05/22/16 05/22/16 05/23/16 05/23/16 05/23/16 07:00 15:00 23:00 07:00 15:00 23:00 Intake Total 960 ml Balance 960 ml Intake Oral 960 ml # Voids 7 (Sarahi Olmedo MD R2) Result Diagram: 05/21/16 1102 05/23/16 0933 Imaging GEN: Well-developed, well-nourished patient. No acute distress. EYES: Improved periorbital swelling of the left eye. Conjunctiva continues to be erythematous. Left apoptosis has improved. Extraocular movements otherwise intact. CV: Regular rate and rhythm without obvious murmurs LUNGS: Clear to auscultation bilaterally. Normal respiratory effort. No wheezes , rales, rhonchi. EXT: No edema. No calf tenderness. NEURO/PSYCH: Awake, alert. Appropriate insight and judgment. Normal speech ( Sarahi Olmedo MD R2) A/P Assessment and Plan 60-year-old female with PMH significant for asthma/COPD on chronic steroids. Admitted for severe left eye HSV keratitis Discharge Planning Pending ophthalmology clearance dw Dr. Maharaj (Sarahi Olmedo MD R2) Attending Attestation Patient seen and examined. Case reviewed and discussed with the resident team. Agree with plan of care as discussed with me and documented in the resident note. 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 Lagos, radio station audio engineer. Treatment has been resistant over the last couple weeks. Due to worsening symptoms and continued pain, was referred to the ED for admission. -Consider head CT if patient worsens clinically or has more severe headaches despite pain control -Pain control with tramadol and Toradol for breakthrough Ophthalmology consulted: Appreciate recommendations * Continue antiviral treatment with acyclovir and trifluridine Medications: * Acyclovir 800 mg 5x/day (05/21- * Trifluridine q3h left eye (05/22- (2) TRISTEN (acute kidney injury) Status: Resolved Plan: New onset TRISTEN. -Discontinued Toradol -Hold lasix -Fluids x1bag, see rate below -continue to monitor (3) Hypertension Status: Acute Plan: Does not take any home antihypertensive. BP improved this morning -Started HCTZ 12.5 mg daily (4) COPD (chronic obstructive pulmonary disease) Status: Chronic Plan: Long history of smoking in conjunction with a history of asthma. She also reports a history of pleural effusion/edema for which she takes Lasix daily -Continue home prednisone 10 mg daily and Lasix. advised her that exterminator helper termite prednisone can have many adverse effects and that she should strongly consider slowly decreasing as an outpt -Albuterol and Duonebs as needed -Incentive spirometry -Nicotine patch (5) Nutrition, metabolism, and development symptoms Status: Acute Plan: Diet: Regular Electrolytes: Hypokalemia, replete with 40 KCl, 10 meq daily Fluids: NS at 75mls/hr x1bag DVT prophylaxis: Lovenox GI prophylaxis: Protonix due to chronic prednisone use Chronic Conditions: * Alcohol use: CIWA protocol (Sarahi Olmedo MD R2) Problem Qualifiers (1) Hypertension: Qualified Code: I10 - Essential hypertension (2) COPD (chronic obstructive pulmonary disease): Qualified Code: J44.9 - Chronic obstructive pulmonary disease, unspecified COPD type Sarahi Olmedo MD R2 May 23, 2016 11:58 Jovanna Maharaj MD May 24, 2016 14:02
[2016-05-23] MEDS ORDERED: SODIUM CHLOR 0.9% 1000 ML INJ 1,000 ML IV SCH (12:00)
[2016-05-23] MEDS ORDERED: POTASSIUM CHLORIDE 20 MEQ CONTROLLED RELEASE TAB PO ONE (12:00)
[2016-05-23 12:26] VITALS: BP 140/78; PULSE 56; RESP 20; TEMP 97.1; O2SAT 99
[2016-05-23] MEDS: ENOXAPARIN SODIUM 40 MG/0.4 ML SYRINGE SQ SCH (12:29)
[2016-05-23] MEDS: diphenhydrAMINE HCL 25 MG CAP PO PRN ×2 (14:22→19:04)
[2016-05-23 15:50] VITALS: BP 133/78; PULSE 59; RESP 20; TEMP 98.3; O2SAT 100
[2016-05-23 20:00] VITALS: BP 156/94; PULSE 67; RESP 20; TEMP 98.1; O2SAT 93
[2016-05-24] VITALS: BP 157/99; PULSE 69; RESP 19; TEMP 97.8; O2SAT 95
[2016-05-24] MEDS: TRIFLURIDINE 1% LEFT EYE SCH ×9 (00:20→22:39)
[2016-05-24 04:00] VITALS: BP 176/95; PULSE 63; RESP 20; TEMP 95.8; O2SAT 93
[2016-05-24] MEDS: ACYCLOVIR 800 MG TAB PO SCH ×5 (05:53→21:16)
[2016-05-24] MEDS: traMADol HCL 50 MG TAB PO PRN ×4 (06:03→21:16)
[2016-05-24] MEDS: diphenhydrAMINE HCL 25 MG CAP PO PRN ×4 (06:03→21:16)
[2016-05-24 07:52] VITALS: BP 155/89; PULSE 63; RESP 18; TEMP 97.9; O2SAT 97
[2016-05-24] MEDS: PANTOPRAZOLE SOD 40 MG DELAYED RELEASE TAB PO SCH (08:22)
[2016-05-24] MEDS: predniSONE 10 MG TAB PO SCH (08:22)
[2016-05-24] MEDS: POTASSIUM CHLORIDE 10 MEQ CAP PO SCH (08:22)
[2016-05-24] MEDS: SODIUM CHLORIDE 0.9% FLUSH 5 ML FLUSH FLUSH SCH ×2 (08:23→21:15)
[2016-05-24] MEDS: NICOTINE 21 MG/24 HR PATCH TD SCH (08:23)
[2016-05-24] MEDS: HYDROCHLOROTHIAZIDE 12.5 MG CAP PO SCH (08:23)
[2016-05-24] MEDS: REMOVE OLD PATCH TD SCH (08:23)
[2016-05-24 09:13] LABS: BICARBONATE 28.2 MEQ/L (21.0-32.0); POTASSIUM 3.4 MEQ/L (3.5-5.1)
[2016-05-24] MEDS ORDERED: POTASSIUM CHLORIDE 10 MEQ CONTROLLED RELEASE TAB PO ONE (11:00)
[2016-05-24 11:15] VITALS: BP 151/88; PULSE 60; RESP 18; TEMP 97.1; O2SAT 96
--- NOTE | 2016-05-24 11:47 | HHI.FPPN ---
Subjective Remarks Ms Vick feels improved this am as far as being able to open her left eye more than before. She feels she is getting better but still has pain in that eye. Appreciate help from Dr Lagos who ordered a drop to numb her eye. Otherwise she is doing well without complaints. Objective Vitals Vital Signs Date Time Temp Pulse Resp B/P Pulse Ox O2 Delivery O2 Flow Rate FiO2 05/24/16 07:52 97.9 63 18 155/89 97 05/24/16 07:03 18 05/24/16 04:00 95.8 63 20 176/95 93 05/24/16 00:00 97.8 69 19 157/99 95 05/23/16 20:00 98.1 67 20 156/94 93 05/23/16 15:50 98.3 59 20 133/78 100 05/23/16 12:26 97.1 56 20 140/78 99 I/O 05/23/16 05/23/16 05/23/16 05/24/16 05/24/16 05/24/16 07:00 15:00 23:00 07:00 15:00 23:00 Intake Total 960 ml 627 ml Balance 960 ml 627 ml Intake Oral 960 ml IV Total 627 ml # Voids 5 1 Result Diagram: 05/21/16 1102 05/24/16 0814 Objective Remarks GEN: Well-developed, well-nourished patient. No acute distress. EYES: Improved periorbital swelling of the left eye. Conjunctiva continues to be erythematous. Left apoptosis has improved. Extraocular movements otherwise intact. She can open eye better and has less erythema. Per Optho notes, she has smaller defect and is healing CV: Regular rate and rhythm without obvious murmurs LUNGS: Clear to auscultation bilaterally. Normal respiratory effort. No wheezes , rales, rhonchi. EXT: No edema. No calf tenderness. NEURO/PSYCH: Awake, alert. Appropriate insight and judgment. Normal speech Urinary Catheter: No Vascular Central Line Catheter: No A/P Assessment and Plan 60-year-old female with PMH significant for asthma/COPD on chronic steroids. 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 Lagos, woods laborer. Treatment has been resistant over the last couple weeks. Due to worsening symptoms and continued pain, was referred to the ED for admission. -Consider head CT if patient worsens clinically or has more severe headaches despite pain control -Pain control with tramadol and Toradol for breakthrough Ophthalmology consulted: Appreciate recommendations * Continue antiviral treatment with acyclovir and trifluridine Medications: * Acyclovir 800 mg 5x/day (05/21- * Trifluridine q3h left eye (05/22- (2) TRISTEN (acute kidney injury) Status: Acute Plan: New onset TRISTEN. -Discontinued Toradol -Hold lasix -Fluids x1bag, see rate below -continue to monitor, better today (3) Hypertension Status: Acute Plan: Does not take any home antihypertensive. BP improved this morning -Started HCTZ 12.5 mg daily can add amlodipine and continue to adjust (4) COPD (chronic obstructive pulmonary disease) Status: Chronic Plan: Long history of smoking in conjunction with a history of asthma. She also reports a history of pleural effusion/edema for which she takes Lasix daily -Continue home prednisone 9 mg daily (decreased by one mg) and stopped Lasix. advised her that intermediate card tender prednisone can have many adverse effects and that she should strongly consider slowly decreasing as an outpt her prednisone can lead to more infections and so many other problems but has to be weaned so very slowly so will give 9 mg for weeks then hope her primary can cut maybe by one mg per few weeks or month -Albuterol and Duonebs as needed -Incentive spirometry -Nicotine patch (5) Nutrition, metabolism, and development symptoms Status: Acute Plan: Diet: Regular Electrolytes: Hypokalemia, replete with 40 KCl, 10 meq daily, replaced today as well Fluids: NS at 75mls/hr x1bag, stopped DVT prophylaxis: Lovenox GI prophylaxis: Protonix due to chronic prednisone use Chronic Conditions: * Alcohol use: [facility] protocol Problem Qualifiers (1) Hypertension: Qualified Code: I10 - Essential hypertension (2) COPD (chronic obstructive pulmonary disease): Qualified Code: J44.9 - Chronic obstructive pulmonary disease, unspecified COPD type Jovanna Maharaj MD May 24, 2016 11:47
--- NOTE | 2016-05-24 12:05 | HHI.PR ---
Subjective Remarks Improvement in pain and subjective improvement in vision. Objective Vital Signs Date Time Temp Pulse Resp B/P Pulse Ox O2 Delivery O2 Flow Rate FiO2 05/24/16 11:15 97.1 60 18 151/88 96 05/24/16 07:52 97.9 63 18 155/89 97 05/24/16 07:03 18 05/24/16 04:00 95.8 63 20 176/95 93 05/24/16 00:00 97.8 69 19 157/99 95 05/23/16 20:00 98.1 67 20 156/94 93 05/23/16 15:50 98.3 59 20 133/78 100 05/23/16 12:26 97.1 56 20 140/78 99 I/O 05/23/16 05/23/16 05/23/16 05/24/16 05/24/16 05/24/16 07:00 15:00 23:00 07:00 15:00 23:00 Intake Total 960 ml 627 ml Balance 960 ml 627 ml Intake Oral 960 ml IV Total 627 ml # Voids 5 1 Result Diagram: 05/21/16 1102 05/24/16 0814 Objective Remarks Va OS CF at 3 ft EOM full OU, no diplopia CVF full OU Pupils 2-1 no APD OU IOP deferred Anterior exam OS - lid edema, conj injection, 5x5 mm irregular epi defect on cornea, AC hazy, pupil round, lens clear Assessment and Plan Problem List: (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 Cont Acyclovir 800 mg 5x/day (Day 4), Trifluridine q3h OS (Day 3), and pain control per primary team. Will follow daily. Griselda Lagos MD May 24, 2016 12:05
[2016-05-24] MEDS: ENOXAPARIN SODIUM 40 MG/0.4 ML SYRINGE SQ SCH (12:58)
[2016-05-24] MEDS: amLODIPine BESYLATE 5 MG TAB PO SCH (13:02)
[2016-05-24 15:00] VITALS: BP 151/86; PULSE 77; RESP 18; TEMP 96.9; O2SAT 97
[2016-05-24 20:05] VITALS: BP 166/88; PULSE 61; RESP 18; TEMP 97; O2SAT 97
[2016-05-25] VITALS: BP 162/84; PULSE 62; RESP 18; TEMP 97.3; O2SAT 98
[2016-05-25] MEDS: TRIFLURIDINE 1% LEFT EYE SCH ×8 (01:38→23:39)
[2016-05-25] MEDS: diphenhydrAMINE HCL 25 MG CAP PO PRN ×6 (01:38→23:57)
[2016-05-25] MEDS: traMADol HCL 50 MG TAB PO PRN ×6 (01:38→23:38)
[2016-05-25 04:00] VITALS: BP 157/89; PULSE 68; RESP 18; TEMP 98; O2SAT 94
[2016-05-25] MEDS: ACYCLOVIR 800 MG TAB PO SCH ×5 (05:56→21:25)
[2016-05-25 07:20] VITALS: BP 156/84; PULSE 78; RESP 19; TEMP 98.1; O2SAT 99
[2016-05-25] MEDS: amLODIPine BESYLATE 5 MG TAB PO SCH (08:13)
[2016-05-25] MEDS: PANTOPRAZOLE SOD 40 MG DELAYED RELEASE TAB PO SCH (08:13)
[2016-05-25] MEDS: HYDROCHLOROTHIAZIDE 25 MG TAB PO SCH (08:14)
[2016-05-25] MEDS: NICOTINE 21 MG/24 HR PATCH TD SCH (08:14)
[2016-05-25] MEDS: POTASSIUM CHLORIDE 10 MEQ CAP PO SCH (08:14)
[2016-05-25] MEDS: REMOVE OLD PATCH TD SCH (08:18)
[2016-05-25] MEDS: SODIUM CHLORIDE 0.9% FLUSH 5 ML FLUSH FLUSH SCH ×2 (08:18→21:28)
[2016-05-25] MEDS ORDERED: KETOROLAC TROMETHAMINE 30 MG/ML (IVP) VIAL IV PUSH ONE (08:45)
--- NOTE | 2016-05-25 08:47 | HHI.FPPN ---
Subjective Remarks No acute events overnight. Vital signs continue show slightly elevated BP. This morning patient reports worsening of her left thigh pain that is described as throbbing. Before today her pain had been controlled. Denies any chest pain or SOB. No nausea or vomiting. (Sarahi Olmedo MD R2) Objective Vitals Vital Signs Date Time Temp Pulse Resp B/P Pulse Ox O2 Delivery O2 Flow Rate FiO2 05/25/16 04:00 98.0 68 18 157/89 94 05/25/16 00:00 97.3 62 18 162/84 98 05/24/16 20:05 97.0 61 18 166/88 97 05/24/16 15:00 96.9 77 18 151/86 97 05/24/16 11:15 97.1 60 18 151/88 96 I/O 05/24/16 05/24/16 05/24/16 05/25/16 05/25/16 05/25/16 07:00 15:00 23:00 07:00 15:00 23:00 Intake Total 627 ml 240 ml 480 ml 240 ml Balance 627 ml 240 ml 480 ml 240 ml Intake Oral 240 ml 480 ml 240 ml IV Total 627 ml 0 ml # Voids 1 2 2 (Sarahi Olmedo MD R2) Result Diagram: 05/21/16 1102 05/24/16 0814 Objective Remarks GEN: Well-developed, well-nourished patient. No acute distress. EYES: Stable. Overall swelling of the left thigh, minimal.. Conjunctiva continues to be erythematous. CV: Regular rate and rhythm without obvious murmurs LUNGS: Clear to auscultation bilaterally. Normal respiratory effort. No wheezes , rales, rhonchi. EXT: No edema. No calf tenderness. NEURO/PSYCH: Awake, alert. Appropriate insight and judgment. Normal speech ( Sarahi Olmedo MD R2) A/P Assessment and Plan 60-year-old female with PMH significant for asthma/COPD on chronic steroids. Admitted for severe left eye HSV keratitis Discharge Planning Pending ophthalmology clearance. Will reach out to opho for anti-viral timeline wdw Dr. Maharaj and Dr. Veronica (Sarahi Olmedo MD R2) Attending Attestation Patient seen and examined. Case reviewed and discussed with the resident team. Agree with plan of care as discussed with me and documented in the resident note. 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 Lagos, senior asic engineer. Treatment has been resistant over the last couple weeks. Due to worsening symptoms and continued pain, was referred to the ED for admission. -Consider head CT if patient worsens clinically or has more severe headaches despite pain control -Pain control with tramadol and Toradol for breakthrough Ophthalmology consulted: Appreciate recommendations * Continue antiviral treatment with acyclovir and trifluridine Medications: * Acyclovir 800 mg 5x/day (05/21- * Trifluridine q3h left eye (05/22- (2) TRISTEN (acute kidney injury) Status: Resolved Plan: New onset TRISTEN that has resolved. -Resumed Toradol for breakthrough -Hold lasix -continue to monitor (3) Hypertension Status: Acute Plan: Does not take any home antihypertensive. BP improved but continued to elevated -Increased HCTZ to 25mg daily -Amlodipine 5mg daily (4) COPD (chronic obstructive pulmonary disease) Status: Chronic Plan: Long history of smoking in conjunction with a history of asthma. She also reports a history of pleural effusion/edema for which she takes Lasix daily -Decreased home prednisone to 9 mg daily (decreased by one mg) and stopped Lasix. Advised her that nursing home prednisone can have many adverse effects and that she should strongly consider slowly decreasing as an outpt -her prednisone can lead to more infections and so many other problems but has to be weaned so very slowly so will give 9 mg for weeks then hope her primary can cut maybe by one mg per few weeks or month -Albuterol and Duonebs as needed -Incentive spirometry -Nicotine patch (5) Nutrition, metabolism, and development symptoms Status: Acute Plan: Diet: Regular Electrolytes: Hypokalemia, 10 meq daily Fluids: none DVT prophylaxis: Lovenox GI prophylaxis: Protonix due to chronic prednisone use Chronic Conditions: * Alcohol use: CIWA protocol (Sarahi Olmedo MD R2) Problem Qualifiers (1) Hypertension: Qualified Code: I10 - Essential hypertension (2) COPD (chronic obstructive pulmonary disease): Qualified Code: J44.9 - Chronic obstructive pulmonary disease, unspecified COPD type Sarahi Olmedo MD R2 May 25, 2016 08:47 Jovanna Maharaj MD May 29, 2016 13:41
[2016-05-25] MEDS ORDERED: predniSONE 10 MG TAB PO SCH ×2 (09:00)
[2016-05-25 10:42] LABS: BICARBONATE 28.3 MEQ/L (21.0-32.0); POTASSIUM 3.7 MEQ/L (3.5-5.1)
[2016-05-25 11:50] VITALS: BP 141/70; PULSE 60; RESP 19; TEMP 96.8; O2SAT 97
--- NOTE | 2016-05-25 12:29 | HHI.PR ---
Subjective Remarks Improvement in pain. Objective Vital Signs Date Time Temp Pulse Resp B/P Pulse Ox O2 Delivery O2 Flow Rate FiO2 05/25/16 11:50 96.8 60 19 141/70 97 05/25/16 07:20 98.1 78 19 156/84 99 05/25/16 04:00 98.0 68 18 157/89 94 05/25/16 00:00 97.3 62 18 162/84 98 05/24/16 20:05 97.0 61 18 166/88 97 05/24/16 15:00 96.9 77 18 151/86 97 I/O 05/24/16 05/24/16 05/24/16 05/25/16 05/25/16 05/25/16 07:00 15:00 23:00 07:00 15:00 23:00 Intake Total 627 ml 240 ml 480 ml 240 ml Balance 627 ml 240 ml 480 ml 240 ml Intake Oral 240 ml 480 ml 240 ml IV Total 627 ml 0 ml # Voids 1 2 2 Result Diagram: 05/21/16 1102 05/25/16 0900 Objective Remarks Va OS CF at 3 ft EOM full OU, no diplopia CVF full OU Pupils 2-1 no APD OU IOP deferred Anterior exam OS - lid edema, conj injection, 3x3 mm irregular epi defect on cornea, AC hazy, pupil round, lens clear Assessment and Plan Problem List: (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 Cont Acyclovir 800 mg 5x/day (Day 5), Trifluridine q3h OS (Day 4), and pain control per primary team. Add Prednisolone acetate 1% once daily OS. Will follow daily. Griselda Lagos MD May 25, 2016 12:29
[2016-05-25] MEDS: ENOXAPARIN SODIUM 40 MG/0.4 ML SYRINGE SQ SCH (13:53)
[2016-05-25] MEDS: prednisoLONE ACETATE 1% OPHT SUSP 5 ML BTL LEFT EYE SCH (14:14)
[2016-05-25 15:15] VITALS: BP 141/97; PULSE 74; RESP 19; TEMP 97.7; O2SAT 97
[2016-05-25 20:00] VITALS: BP 155/88; PULSE 63; RESP 18; TEMP 97.5; O2SAT 95
[2016-05-26 00:42] VITALS: BP 156/87; PULSE 62; RESP 18; TEMP 97.6; O2SAT 95
[2016-05-26] MEDS: TRIFLURIDINE 1% LEFT EYE SCH ×3 (02:00→08:44)
[2016-05-26 04:00] VITALS: BP 135/81; PULSE 72; RESP 18; TEMP 97.4; O2SAT 96
[2016-05-26] MEDS: ACYCLOVIR 800 MG TAB PO SCH ×3 (05:33→13:46)
[2016-05-26] MEDS: traMADol HCL 50 MG TAB PO PRN ×3 (05:35→13:47)
[2016-05-26] MEDS: diphenhydrAMINE HCL 25 MG CAP PO PRN ×3 (05:35→13:46)
[2016-05-26 07:25] VITALS: BP 137/73; PULSE 71; RESP 19; TEMP 97; O2SAT 96
[2016-05-26 08:10] LABS: HEMATOCRIT 41.1 % (35.0-46.0); MEAN CELL VOLUME 74.4 FL (80.0-100.0); MEAN CORPUSCULAR HEMOGLOBIN 23.8 PG (27.0-34.0); MEAN CORPUSCULAR HGB CONC 32.1 % (32.0-36.0); PLATELET COUNT 194 TH/MM3 (150-450); RED BLOOD COUNT 5.53 MIL/MM3 (4.00-5.30); RED CELL DISTRIBUTION WIDTH 13.8 % (11.6-17.2); WHITE BLOOD COUNT 9.8 TH/MM3 (4.0-11.0)
[2016-05-26 08:12] LABS: REVIEW FLAG FINAL
[2016-05-26 08:38] LABS: BICARBONATE 27.3 MEQ/L (21.0-32.0); POTASSIUM 3.9 MEQ/L (3.5-5.1)
[2016-05-26] MEDS: amLODIPine BESYLATE 5 MG TAB PO SCH (08:45)
[2016-05-26] MEDS: PANTOPRAZOLE SOD 40 MG DELAYED RELEASE TAB PO SCH (08:45)
[2016-05-26] MEDS: HYDROCHLOROTHIAZIDE 25 MG TAB PO SCH (08:45)
[2016-05-26] MEDS: SODIUM CHLORIDE 0.9% FLUSH 5 ML FLUSH FLUSH SCH (08:45)
[2016-05-26] MEDS: prednisoLONE ACETATE 1% OPHT SUSP 5 ML BTL LEFT EYE SCH (08:45)
[2016-05-26] MEDS: POTASSIUM CHLORIDE 10 MEQ CAP PO SCH (08:45)
[2016-05-26] MEDS: REMOVE OLD PATCH TD SCH (08:48)
[2016-05-26] MEDS: NICOTINE 21 MG/24 HR PATCH TD SCH (08:48)
[2016-05-26] MEDS ORDERED: predniSONE 5 MG TAB PO SCH (09:00)
[2016-05-26] MEDS ORDERED: predniSONE 1 MG TAB PO SCH (09:00)
--- NOTE | 2016-05-26 10:24 | HHI.PR ---
Subjective Remarks Improvement in pain. Objective Vital Signs Date Time Temp Pulse Resp B/P Pulse Ox O2 Delivery O2 Flow Rate FiO2 05/26/16 07:25 97.0 71 19 137/73 96 05/26/16 04:00 97.4 72 18 135/81 96 05/26/16 00:42 97.6 62 18 156/87 95 05/25/16 20:00 97.5 63 18 155/88 95 05/25/16 15:15 97.7 74 19 141/97 97 05/25/16 11:50 96.8 60 19 141/70 97 I/O 05/25/16 05/25/16 05/25/16 05/26/16 05/26/16 05/26/16 07:00 15:00 23:00 07:00 15:00 23:00 Intake Total 240 ml 480 ml 480 ml 480 ml Balance 240 ml 480 ml 480 ml 480 ml Intake Oral 240 ml 480 ml 480 ml 480 ml # Voids 2 1 1 3 # Bowel Movements 0 Result Diagram: 05/26/16 0741 05/26/16 0741 Objective Remarks Va OS 20/400 EOM full OU, no diplopia CVF full OU Pupils 2-1 no APD OU IOP deferred Anterior exam OS - mild lid edema, 1+ conj injection, 2 1x2 mm irregular epi defect on cornea , AC hazy, pupil round, lens clear Assessment and Plan Problem List: (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 Cont Acyclovir 800 mg 5x/day (Day 6), decrease Trifluridine q4h OS (Day 5), and pain control per primary team. Increase Prednisolone acetate 1% BID OS. Will follow daily. Griselda Lagos MD May 26, 2016 10:24
[2016-05-26 11:50] VITALS: BP 113/68; PULSE 62; RESP 19; TEMP 96.9; O2SAT 96
[2016-05-26] MEDS ORDERED: TRIFLURIDINE 1% LEFT EYE SCH (12:00)
--- NOTE | 2016-05-26 12:05 | HHI.FPPN ---
Subjective Remarks Patient seen and examined this morning. No acute events overnight with VSS. She states her vision continues to improve and her pain is well controlled. She has no other complaints. She denies any fevers, chills, SOB, chest pain, NVD, or calf tenderness. (Solomon Veroncia MD R1) Objective Vitals Vital Signs Date Time Temp Pulse Resp B/P Pulse Ox O2 Delivery O2 Flow Rate FiO2 05/26/16 11:50 96.9 62 19 113/68 96 05/26/16 07:25 97.0 71 19 137/73 96 05/26/16 04:00 97.4 72 18 135/81 96 05/26/16 00:42 97.6 62 18 156/87 95 05/25/16 20:00 97.5 63 18 155/88 95 05/25/16 15:15 97.7 74 19 141/97 97 I/O 05/25/16 05/25/16 05/25/16 05/26/16 05/26/16 05/26/16 07:00 15:00 23:00 07:00 15:00 23:00 Intake Total 240 ml 480 ml 480 ml 480 ml Balance 240 ml 480 ml 480 ml 480 ml Intake Oral 240 ml 480 ml 480 ml 480 ml # Voids 2 1 1 3 # Bowel Movements 0 (Solomon Veronica MD R1) Result Diagram: 05/26/16 0741 05/26/16 0741 Objective Remarks GEN: Well-developed, well-nourished patient. No acute distress. EYES: Stable. Overall swelling of the left eye, minimal. Patient's ability to open eye spontaneously continues to improve. Conjunctiva continues to be erythematous. EOMI. CV: Regular rate and rhythm without obvious murmurs LUNGS: Clear to auscultation bilaterally. Normal respiratory effort. No wheezes , rales, rhonchi. ABD: Soft, nondistended with +BS. EXT: No edema. No calf tenderness. NEURO/PSYCH: Awake, alert. Appropriate insight and judgment. Normal speech ( Solomon Veronica MD R1) A/P Assessment and Plan 60-year-old female with PMH significant for asthma/COPD on chronic steroids. Admitted for severe left eye HSV keratitis Discharge Planning Likely today pending approval of patient assistance with outpatient medication. wdw Dr. Maharaj and Dr. Ford (Solomon Veronica MD R1) Attending Attestation Patient seen and examined. Case reviewed and discussed with the resident team. Agree with plan of care as discussed with me and documented in the resident note. 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 Lagos, cabinet and trim installer. Treatment has been resistant over the last couple weeks. Due to worsening symptoms and continued pain, was referred to the ED for admission. -Consider head CT if patient worsens clinically or has more severe headaches despite pain control -Pain control with tramadol and Toradol for breakthrough Ophthalmology consulted: Appreciate recommendations * Continue antiviral treatment with acyclovir and trifluridine Medications: * Acyclovir 800 mg 5x/day (05/21-current) * Trifluridine q3h left eye (05/22-current) * Patient to be discharged home with these medications for 10 days of treatment and prednisone taper. (2) TRISTEN (acute kidney injury) Status: Resolved Plan: New onset TRISTEN that has resolved. -Resumed Toradol for breakthrough -Hold lasix -continue to monitor (3) Hypertension Status: Acute Plan: Does not take any home antihypertensive. BP improved but continued to elevated -Increased HCTZ to 25mg daily -Amlodipine 5mg daily -Patient to be discharged home on above medications (4) COPD (chronic obstructive pulmonary disease) Status: Chronic Plan: Long history of smoking in conjunction with a history of asthma. She also reports a history of pleural effusion/edema for which she takes Lasix daily -Decreased home prednisone to 9 mg daily (decreased by one mg) and stopped Lasix. Advised her that alf prednisone can have many adverse effects and that she should strongly consider slowly decreasing as an outpt -her prednisone can lead to more infections and so many other problems but has to be weaned so very slowly so will give 9 mg for weeks then hope her primary can cut maybe by one mg per few weeks or month -Albuterol and Duonebs as needed -Incentive spirometry -Nicotine patch (5) Nutrition, metabolism, and development symptoms Status: Acute Plan: Diet: Regular Electrolytes: Hypokalemia, 10 meq daily Fluids: none DVT prophylaxis: Lovenox GI prophylaxis: Protonix due to chronic prednisone use Chronic Conditions: * Alcohol use: CIWA protocol (Solomon Veronica MD R1) Problem Qualifiers (1) Hypertension: Qualified Code: I10 - Essential hypertension (2) COPD (chronic obstructive pulmonary disease): Qualified Code: J44.9 - Chronic obstructive pulmonary disease, unspecified COPD type Solomon Veronica MD R1 May 26, 2016 12:05 Jovanna Maharaj MD May 29, 2016 13:42
[2016-05-26] MEDS ORDERED: AMLO5 PO (13:03)
[2016-05-26] MEDS ORDERED: PRED5TAB PO (13:03)
[2016-05-26] MEDS ORDERED: PRED1SUS6 LEFT EYE (13:03)
[2016-05-26] MEDS ORDERED: PRED1 PO (13:03)
[2016-05-26] MEDS ORDERED: TRIF1SOL3 LEFT EYE (13:03)
[2016-05-26] MEDS ORDERED: HYDR25TA5 PO (13:03)
[2016-05-26] MEDS ORDERED: ACYC800T PO (13:03)
[2016-05-26] MEDS ORDERED: TRAM50TA PO ×2 (13:03→14:10)
--- NOTE | 2016-05-26 13:05 | HHI.DCPOC ---
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 Avoid second hand smoke Call the 24-hour hour crisis hotline for domestic abuse at Sarahi Olmedo MD R2 May 26, 2016 13:05
[2016-05-26] MEDS: ENOXAPARIN SODIUM 40 MG/0.4 ML SYRINGE SQ SCH (13:46)
--- NOTE | 2016-05-26 14:01 | HHI.DS ---
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 Lagos, mid level project manager. Treatment has been resistant over the last couple weeks. Due to worsening symptoms and continued pain, was referred to the ED for admission. -Consider head CT if patient worsens clinically or has more severe headaches despite pain control -Pain control with tramadol and Toradol for breakthrough Ophthalmology consulted: Appreciate recommendations * Continue antiviral treatment with acyclovir and trifluridine Medications: * Acyclovir 800 mg 5x/day (05/21-current) * Trifluridine q3h left eye (05/22-current) * Patient to be discharged home with these medications for 10 days of treatment and prednisone taper. (2) TRISTEN (acute kidney injury) Plan: New onset TRISTEN that has resolved. -Resumed Toradol for breakthrough -Hold lasix -continue to monitor (3) Hypertension Plan: Does not take any home antihypertensive. BP improved but continued to elevated -Increased HCTZ to 25mg daily -Amlodipine 5mg daily -Patient to be discharged home on above medications (4) COPD (chronic obstructive pulmonary disease) Plan: Long history of smoking in conjunction with a history of asthma. She also reports a history of pleural effusion/edema for which she takes Lasix daily -Decreased home prednisone to 9 mg daily (decreased by one mg) and stopped Lasix. Advised her that [facility] prednisone can have many adverse effects and that she should strongly consider slowly decreasing as an outpt -her prednisone can lead to more infections and so many other problems but has to be weaned so very slowly so will give 9 mg for weeks then hope her primary can cut maybe by one mg per few weeks or month -Albuterol and Duonebs as needed -Incentive spirometry -Nicotine patch (5) Nutrition, metabolism, and development symptoms Plan: Diet: Regular Electrolytes: Hypokalemia, 10 meq daily Fluids: none DVT prophylaxis: Lovenox GI prophylaxis: Protonix due to chronic prednisone use Chronic Conditions: * Alcohol use: [facility] Consultants Ophthalmology Brief History Ms Vick is a 60-year-old female with a PMH significant for asthma/COPD. Presented here today from ophthalmology office due to worsening left eye pain. Patient is under the care of Dr. Lagos. She had been following Dr. Lagos due to left corneal abrasion that progressively worsened despite erythromycin ointment and patching. She was then found to have an underlying HSV component. On admission, she reports that her left eye pain had increased to the point that it is uncontrollable. Left eye pain is described as throbbing which then involves her entire head and neck. Light makes the pain worse but tramadol has been helping making light more tolerable. She otherwise is asymptomatic. She reports that she is able to see light, shapes, movement but unable to visualize detail with the left eye. Right eye will become fatigued due to overuse but otherwise vision is unchanged except for new onset floaters. She is still having problems with vision and can basically see "silhouettes" as she describes it with her left eye but cannot see any details or count fingers. She still has increased pain with light and even when light is shined into the left eye her right eye hurts more. Yesterday in the ED, she appeared to have a few healing vesicles which are barely visible today as they appeared to be continuing to heal. She does have shingles-like pain with shooting pains on left upper face and ear at times. There was some indecision about what dosing and frequency to use on her meds and appreciate help of Dr Lagos with that. CBC/BMP: 05/26/16 0741 05/26/16 0741 Significant Findings Laboratory Tests Test 05/24/16 05/25/16 05/26/16 08:14 09:00 07:41 Potassium Level 3.4 MEQ/L (3.5-5.1) Estimat Glomerular Filtration 75 ML/MIN (>89) 68 ML/MIN (>89) 68 ML/MIN (>89) Rate Creatinine 1.01 MG/DL (0.50-1.00) Random Glucose 119 MG/DL (74-106) Red Blood Count 5.53 MIL/MM3 (4.00-5.30) Mean Corpuscular Volume 74.4 FL (80.0-100.0) Mean Corpuscular Hemoglobin 23.8 PG (27.0-34.0) PE at Discharge GEN: Well-developed, well-nourished patient. No acute distress. EYES: Stable. Overall swelling of the left eye, minimal. Patient's ability to open eye spontaneously continues to improve. Conjunctiva continues to be erythematous. EOMI. CV: Regular rate and rhythm without obvious murmurs LUNGS: Clear to auscultation bilaterally. Normal respiratory effort. No wheezes , rales, rhonchi. ABD: Soft, nondistended with +BS. EXT: No edema. No calf tenderness. NEURO/PSYCH: Awake, alert. Appropriate insight and judgment. Normal speech Hospital Course Patient is otherwise healthy 60-year-old female who was admitted for HSV keratitis of the left eye due to failed outpatient therapies. Was admitted for acyclovir and trifluridine treatment. Patient was also started on prednisolone eyedrops. Left eye pain and vision improved after treatment. Ophthalmology was consulted who recommended a 10 day course of antibiotics. Patient was also found to have high blood pressure that was previously being treated with Lasix. This was discontinued and patient was started on amlodipine and HCTZ. She also reported taking prednisone on daily basis for asthma. We thoroughly discussed the risk factors of continued and prolonged use of steroids. Began a slow taper with 9 mg daily to be weaned as an outpatient. Since patient qualified for patient assistance, she will be able to get medications upon discharge to finish a ten-day course. Patient was discharged in stable condition with follow-up on 05/28 with mid level project manager. Pt Condition on Discharge: Stable Discharge Disposition: Discharge Home Discharge Instructions DIET: Follow Instructions for: As Tolerated, No Restrictions Activities you can perform: Regular-No Restrictions Follow up Referrals: Appointment for Follow Up - 1 Week with Carmel Raphael MD Ophthalmology - 05/28/16 with Griselda Lagos MD New Medications: Acyclovir (Acyclovir) 800 Mg Tab 800 MG PO 5 TIMES A DAY #25 TAB Amlodipine (Norvasc) 5 Mg Tab 5 MG PO DAILY #30 TAB Hydrochlorothiazide (Hydrochlorothiazide) 25 Mg Tab 25 MG PO DAILY #30 TAB Prednisolone Acetate Opth (Prednisolone Acetate Opth) 1% Susp 1 DROP LEFT EYE BID #1 BOTTLE Prednisone (Prednisone) 1 Mg Tab 4 MG PO DAILY take 4 tabs (4mg) plus one 5mg tab for a total of 9mg daily #120 TAB Prednisone (Prednisone) 5 Mg Tab 5 MG PO DAILY take 4 tabs (4mg) plus one 5mg tab for a total of 9mg daily #30 TAB Trifluridine Opth Drops (Trifluridine Opth Drops) 1 % Soln 1 DROP LEFT EYE Q4HR #1 BOTTLE Continued Medications: Albuterol 6.7 GM Inh (Proventil Hfa 6.7 GM Inh) 90 Mcg/Act Aer 2 PUFF INH Q4-6H PRN SHORTNESS OF BREATH #1 Ref 0 INHALER Docusate Sodium (Docusate Sodium) 100 Mg Cap 300 MG PO DAILY Prevent Constipation #60 Ref 0 CAP Multiple Vitamins W/ Minerals (Multi For Her) 1 Tab Tab Tramadol (Tramadol) 50 Mg Tab 50 MG PO Q6H PRN PAIN #30 TAB (This prescription has been renewed) Discontinued Medications: Erythromycin Opth Oint (Erythromycin Opth Oint) 5 Mg/Gm Oint 1 APPLIC LEFT EYE QID Infection #1 Ref 0 TUBE Furosemide (Furosemide) 20 Mg Tab 20 MG PO DAILY #30 Ref 0 TAB Prednisone (Prednisone) 10 Mg Tab 10 MG PO DAILY Ref 0 TAB Sarahi Olmedo MD R2 May 26, 2016 14:01
[2016-05-26] MEDS ORDERED: prednisoLONE ACETATE 1% OPHT SUSP 5 ML BTL LEFT EYE SCH (21:00)
[2016-06-10] MEDS ORDERED: PRED1SUS LEFT EYE (08:57)
[2016-06-10] MEDS ORDERED: TRIF1SOL3 LEFT EYE (08:57)
[2016-06-15] MEDS ORDERED: PRED5TAB PO (10:25)
[2016-06-15] MEDS ORDERED: FLUT50SP EACH NARE (10:25)
[2016-06-22] MEDS ORDERED: PRED1SUS LEFT EYE (10:13)
[2016-06-22] MEDS ORDERED: ACYC800T PO (10:13)
[2016-07-15] MEDS ORDERED: PRED10 PO (10:45)
[2016-07-15] MEDS ORDERED: PRED1SUS LEFT EYE (10:45)
[2016-07-15] MEDS ORDERED: CARB1DRO RIGHT EYE (10:45)
[2016-07-22] MEDS ORDERED: FIBE625T10 PO (10:41)
[2016-07-22] MEDS ORDERED: PRED10 PO (10:58)
[2016-07-22] MEDS ORDERED: KETO60IN6 IM (10:59)
[2016-07-22] MEDS ORDERED: METH125I2 IM (10:59)
[2016-07-26] MEDS ORDERED: PRED1SUS6 LEFT EYE (10:05)
[2016-09-07] MEDS ORDERED: PRED10 PO (13:02)
[2016-09-16] MEDS ORDERED: PRED1SUS6 LEFT EYE (14:35)
[2016-09-16] MEDS ORDERED: PRED20 PO (15:15)
== END 2016-05-26 15:31 | disposition home or self-care (01) | DRG 125 ==
LOC: NEPC 09:49 → NEDA 12:37 → N05B 16:53
PROVIDERS: ADMIT Family Medicine; ATTEND Family Medicine
DX: B00.52 Herpesviral keratitis (principal); N17.9 Acute kidney failure, unspecified; I10 Essential (primary) hypertension; J44.9 Chronic obstructive pulmonary disease, unspecified; J45.909 Unspecified asthma, uncomplicated; Z79.52 Long term (current) use of systemic steroids; F17.210 Nicotine dependence, cigarettes, uncomplicated; E87.6 Hypokalemia; M54.5 Low back pain; G89.29 Other chronic pain; Z23 Encounter for immunization
CPT/HCPCS: 80048; 80053; 83735; 84132; 85025; 85027; 90732; 96365; 96375; J0133; J1650; J1885; J7030; J7512

== ENCOUNTER 2016-05-31 10:32 | Inpatient (IN) | payer OTHER ==
[~2016-05-31] VITALS: Ht 160 cm; Wt 71.7 kg
[~2016-05-31 10:32] MED LIST changes: +ACYC800T PO; +AMLO5 PO; -ERYTOIN10 LEFT EYE; -FURO20TA PO; +HYDR25TA5 PO; +PRED1 PO; -PRED10 PO; +PRED1SUS6 LEFT EYE; +PRED5TAB PO; +TRIF1SOL3 LEFT EYE
[2016-05-31 10:36] VITALS: BP 156/81; PULSE 87; RESP 20; TEMP 98.1; O2SAT 98
[2016-05-31] MEDS ORDERED: PROPARACAINE HCL 0.5% OPHT SOLN 15 ML BTL EACH EYE ONE (11:00)
[2016-05-31] MEDS ORDERED: SODIUM CHLORIDE 0.9% FLUSH 5 ML FLUSH IVF PRN (11:00)
[2016-05-31] MEDS ORDERED: CYCLOPENTOLATE HCL 1% OPHT SOLN 2 ML BTL EACH EYE ONE (11:00)
[2016-05-31] MEDS ORDERED: traMADol HCL 50 MG TAB PO ONE (11:15)
[2016-05-31] MEDS ORDERED: ACYCLOVIR 800 MG TAB PO ONE (11:15)
[2016-05-31] MEDS ORDERED: FLUORESCEIN SOD 1 MG STRIP EACH EYE ONE (11:15)
[2016-05-31] MEDS ORDERED: MORPHINE SULFATE 8 MG/ML INJ IV PUSH ONE (11:30)
[2016-05-31] MEDS ORDERED: diphenhydrAMINE HCL 50 MG/ML VIAL IV PUSH ONE ×2 (11:30→15:00)
[2016-05-31 11:34] LABS: AUTOMATED NEUTROPHIL # 6.2 TH/MM3 (1.8-7.7); BASOPHIL # 0.1 TH/MM3 (0-0.2); BASOPHIL % 1.1 % (0.0-2.0); EOSINOPHIL # 0.2 TH/MM3 (0-0.4); EOSINOPHIL % 1.7 % (0.0-4.0); HEMATOCRIT 40.3 % (35.0-46.0); HEMO FLAGS DIFF FINAL; LYMPH % 26.6 % (9.0-44.0); LYMPHOCYTE # 2.6 TH/MM3 (1.0-4.8); MEAN CELL VOLUME 73.9 FL (80.0-100.0); MEAN CORPUSCULAR HGB CONC 33.8 % (32.0-36.0); MONO % 8.6 % (0.0-8.0); PLATELET COUNT 234 TH/MM3 (150-450); RED BLOOD COUNT 5.44 MIL/MM3 (4.00-5.30); RED CELL DISTRIBUTION WIDTH 13.8 % (11.6-17.2); WHITE BLOOD COUNT 9.9 TH/MM3 (4.0-11.0)
[2016-05-31 11:54] LABS: BICARBONATE 26.6 MEQ/L (21.0-32.0); POTASSIUM 3.7 MEQ/L (3.5-5.1)
[2016-05-31 13:00] VITALS: BP 132/75; PULSE 58; RESP 14; RESP 20; O2SAT 89; O2SAT 96
[2016-05-31 13:01] VITALS: RESP 16; O2SAT 98
--- NOTE | 2016-05-31 13:14 | PD ---
HPI Chief Complaint: Eye Problems/Injury Time Seen by Provider: 10:40 Travel History International Travel<30 days: No Contact w/Intl Traveler<30days: No Traveled to known affect area: No History of Present Illness HPI Patient's 6-year-old female presents emergency department for evaluation of left eye pain. Patient was sent here by Dr. Griselda Lagos for admission for HSV keratitis. Patient was admitted earlier this month for similar and was discharged on May 26 from the resident service. Patient is been increasing pain since then. She went to Dr. Lagos's office today and she was still in significant pain and Dr. Lagos Center up to the primary for evaluation. Patient doesn't endorse significant pain of her left eye denies any headaches denies any acute visual changes but her vision has been decreased for some time. Denies any eye injury. PFSH Past Medical History Arthritis: Yes (lt leg, hands ) Asthma: Yes Anxiety: No Depression: No Heart Rhythm Problems: Yes (IRREGULAR HEART BEAT) Cancer: No Cardiac Catheterization: No Cardiovascular Problems: Yes High Cholesterol: Yes Chemotherapy: No Chest Pain: Yes (sharp occationally) Congestive Heart Failure: No COPD: Yes Cerebrovascular Accident: No Diabetes: No Diminished Hearing: No Endocrine: No Gastrointestinal Disorders: No GERD: No Genitourinary: No Headaches: Yes Hiatal Hernia: No Hypertension: No Immune Disorder: No Kidney Stones: No Musculoskeletal: Yes Neurologic: Yes Psychiatric: No Reproductive: No Respiratory: Yes Migraines: No Radiation Therapy: No Renal Failure: No Seizures: No Shingles: Yes (L EYE) Sickle Cell Disease: No Sleep Apnea: No Thyroid Disease: No Ulcer: No Tetanus Vaccination: < 5 Years Influenza Vaccination: No ?: Not Menopausal: Yes : 7 Para: 6 Miscarriage: 1 : 0 Tubal Ligation: Yes Past Surgical History AICD: No Cardiac Surgery: No Coronary Artery Bypass Graft: No Ear Surgery: No Endocrine Surgery: No Eye Surgery: No Genitourinary Surgery: No Gynecologic Surgery: No Insulin Pump: No Joint Replacement: No Oral Surgery: Yes (bleeding gums teeth pulled) Pacemaker: No Thoracic Surgery: No Other Surgery: No Family History Family Myocardial Infarction: Yes (Mother at 53 from [place]) Social History Alcohol Use: Yes (OCC) Tobacco Use: Yes (1/2 PPD) Substance Use: No Allergies-Medications (Allergen,Severity, Reaction): Coded Allergies: Lortab (Verified Allergy, Severe, ITCHING "BUT I CAN TAKE WITH A BENADRYL ", 05/31/16) Morphine (Verified Adverse Reaction, Severe, Nausea/Vomiting/ITCH, 05/31/16 ) Reported Meds & Prescriptions Reported Meds & Active Scripts Active Tramadol (Tramadol HCl) 50 Mg Tab 50 Mg PO Q6H PRN Prednisone 5 Mg Tab 5 Mg PO DAILY take 4 tabs (4mg) plus one 5mg tab for a total of 9mg daily Prednisone 1 Mg Tab 4 Mg PO DAILY take 4 tabs (4mg) plus one 5mg tab for a total of 9mg daily Trifluridine Opth Drops (Trifluridine) 1 % Soln 1 Drop LEFT EYE Q4HR Prednisolone Acetate Opth 1% Susp 1 Drop LEFT EYE BID Hydrochlorothiazide 25 Mg Tab 25 Mg PO DAILY Norvasc (Amlodipine Besylate) 5 Mg Tab 5 Mg PO DAILY Acyclovir 800 Mg Tab 800 Mg PO 5 TIMES A DAY Reported Docusate Sodium 100 Mg Cap 300 Mg PO DAILY Multi For Her (Multiple Vitamins W/ Minerals) 1 Tab Tab Proventil Hfa 6.7 GM Inh (Albuterol Sulfate) 90 Mcg/Act Aer 2 Puff INH Q4-6H PRN Review of Systems Except as stated in HPI: all other systems reviewed are Neg Physical Exam Narrative GENERAL: WD/WN uncomfortable female. Non-toxic appearance. SKIN: Warm and dry. HEAD: Atraumatic. Normocephalic. EYES: Pupils equal and round. Very difficult to ascertain reactivity as patient has contralateral pain when checking right pupil with light (iritis). She closes her eyes instantly. There is significant injection of left eye without chemosis. There is significant anterior chamber cell/flare of left eye. There is also dendritic pattern with fluroscein which is quite diffuse. Left eye tonopen in 9. Right eye deferred. ENT: No nasal bleeding or discharge. Mucous membranes pink and moist. NECK: Trachea midline. No JVD. CARDIOVASCULAR: Regular rate and rhythm. RESPIRATORY: No accessory muscle use. Clear to auscultation. Breath sounds equal bilaterally. GASTROINTESTINAL: Abdomen soft, non-tender, nondistended. Hepatic and splenic margins not palpable. MUSCULOSKELETAL: Extremities without clubbing, cyanosis, or edema. No obvious deformities. NEUROLOGICAL: Awake and alert. No obvious cranial nerve deficits. Motor grossly within normal limits. Five out of 5 muscle strength in the arms and legs. Normal speech. PSYCHIATRIC: Appropriate mood and affect; insight and judgment normal. Data Data Last Documented VS Vital Signs Date Time Temp Pulse Resp B/P Pulse Ox O2 Delivery O2 Flow Rate FiO2 05/31/16 13:01 16 98 Nasal Cannula 2 05/31/16 13:00 58 132/75 05/31/16 10:36 98.1 Orders Basic Metabolic Panel (Bmp) (05/31/16 10:58) Complete Blood Count With Diff (05/31/16 10:58) Iv Access Insert/Monitor (05/31/16 10:58) Ecg Monitoring (05/31/16 10:58) Oximetry (05/31/16 10:58) Sodium Chloride 0.9% Flush (Ns Flush) (05/31/16 11:00) Cyclopentolate 1% Opth Soln (Cyclogyl 1% (05/31/16 11:00) Proparacaine 0.5% Opth Soln (Alcaine 0.5 (05/31/16 11:00) Acyclovir (Zovirax) (05/31/16 11:15) Tramadol (Ultram) (05/31/16 11:15) Fluorescein Strip (Wwfyn-Z-Daqcsv A.T.) (05/31/16 11:15) Morphine Inj (Morphine Inj) (05/31/16 11:30) Diphenhydramine Inj (Benadryl Inj) (05/31/16 11:30) Consult Ophthalmology (05/31/16 ) Admit Order (Ed Use Only) (05/31/16 ) Labs Laboratory Tests Test 05/31/16 11:20 White Blood Count 9.9 TH/MM3 Red Blood Count 5.44 MIL/MM3 Hemoglobin 13.6 GM/DL Hematocrit 40.3 % Mean Corpuscular Volume 73.9 FL Mean Corpuscular Hemoglobin 25.0 PG Mean Corpuscular Hemoglobin 33.8 % Concent Red Cell Distribution Width 13.8 % Platelet Count 234 TH/MM3 Mean Platelet Volume 9.0 FL Neutrophils (%) (Auto) 62.0 % Lymphocytes (%) (Auto) 26.6 % Monocytes (%) (Auto) 8.6 % Eosinophils (%) (Auto) 1.7 % Basophils (%) (Auto) 1.1 % Neutrophils # (Auto) 6.2 TH/MM3 Lymphocytes # (Auto) 2.6 TH/MM3 Monocytes # (Auto) 0.9 TH/MM3 Eosinophils # (Auto) 0.2 TH/MM3 Basophils # (Auto) 0.1 TH/MM3 CBC Comment DIFF FINAL Differential Comment Sodium Level 138 MEQ/L Potassium Level 3.7 MEQ/L Chloride Level 103 MEQ/L Carbon Dioxide Level 26.6 MEQ/L Anion Gap 8 MEQ/L Blood Urea Nitrogen 22 MG/DL Creatinine 1.05 MG/DL Estimat Glomerular Filtration 65 ML/MIN Rate Random Glucose 92 MG/DL Calcium Level 10.0 MG/DL Total Bilirubin 0.2 MG/DL Direct Bilirubin 0.1 MG/DL Indirect Bilirubin 0.1 MG/DL Aspartate Amino Transf 29 U/L (AST/SGOT) Alanine Aminotransferase 54 U/L (ALT/SGPT) Alkaline Phosphatase 65 U/L Total Protein 8.5 GM/DL Albumin 4.3 GM/DL MDM Medical Decision Making Medical Screen Exam Complete: Yes Emergency Medical Condition: Yes Differential Diagnosis Herpes keratitis, glaucoma, iritis, conjunctivitis, shingles unlikel. Narrative Course Patient is 60 year old female sent by Dr. Lagos (ophthalmology) for admission for herpes keratitis. This appears to be significant infection and likely leading already to some corneal scarring. Dr. Lagos and I discussed cycloplegics, proparacaine, and acyclovir (800mg 5times/day). She will see this afternoon. Morphine given to facilitate workup. Patient discussed with resident service for admission. Diagnosis Primary Impression: Herpes simplex keratitis of left eye Admitting Information Admitting Physician Requests: Observation Condition: Stable Aden Lopez MD May 31, 2016 13:13
--- NOTE | 2016-05-31 14:58 | HHI.HP ---
[facility] Service Family Medicine Primary Care Physician Carmel Raphael MD Admission Diagnosis Herpes Keratitis, Intractible pain. Diagnoses: International Travel<30 Days: No Contact w/Intl Traveler<30days: No Known Affected Area: No History of Present Illness Patient is a 60-year-old female with a history of Herpes keratitis, hypertension , COPD who presents from ophthalmology clinic for further evaluation and treatment of her condition. She states that at the onset of her symptoms about a month ago, she thinks something got into the left eye; she rubbed it, "whatever was in it didn't come out, irritated it". She thereafter presented to the ED multiple times in April 2016, and diagnosed with corneal abrasion, discharged with topical analgesics.At that time she was re-treated and went to Dr. Lagos, who started treating it as outpatient. This did not improve her symptoms over three days of treatment, so on May 21, she was admitted to the service for workup of herpes simplex keratitis, was discharged on May 26, 2016. During that stay she was given acyclovir by mouth 5 times per day, Viroptic q4hr to left eye, and prednisolone 1% to left eye and was discharged on these medications. Today she endorses exceptional photosensitivity and left retroorbital pain which has persistently worsened. She states she cannot get around or work due to pain retroorbital. She states only left eye is affected, but notes "floaters" in right eye recently. Opening right eye makes left eye hurt. Vision is blurry, only sees silhouette in left eye. No diplopia. Normal vision reported in right eye. No crusting. Endorses watery eyes. (Debbie Gross MD R1) Review of Systems Constitutional: COMPLAINS OF: Fever (subjective), Chills, Change in appetite Eyes: COMPLAINS OF: Blurred vision, Eye pain, Photosensitivity, DENIES: Diplopia Ears, nose, mouth, throat: DENIES: Tinnitus, Hearing loss, Throat pain, Ear Pain, Running Nose, Epistaxis Respiratory: COMPLAINS OF: Cough (slight), Shortness of breath, DENIES: Wheezing Cardiovascular: DENIES: Chest pain, Palpitations Gastrointestinal: DENIES: Black stools, Bloody stools, Constipation, Diarrhea, Nausea, Vomiting Musculoskeletal: DENIES: Joint pain, Back pain, Neck pain Integumentary: COMPLAINS OF: Pruritus (with morphine), DENIES: Rash Hematologic/lymphatic: DENIES: Bruising, Lymphadenopathy Neurologic: DENIES: Abnormal gait, Headache (Debbie Gross MD R1) Past Family Social History Past Medical History Asthma/COPD-on prednisone Chronic Low back pain with left sciatica Illicit substance abuse HTN Past Surgical History Back surgery 2002 or 2005 Reported Medications Reported Meds & Active Scripts Active Tramadol (Tramadol HCl) 50 Mg Tab 50 Mg PO Q6H PRN Prednisone 5 Mg Tab 5 Mg PO DAILY take 4 tabs (4mg) plus one 5mg tab for a total of 9mg daily Prednisone 1 Mg Tab 4 Mg PO DAILY take 4 tabs (4mg) plus one 5mg tab for a total of 9mg daily Trifluridine Opth Drops (Trifluridine) 1 % Soln 1 Drop LEFT EYE Q4HR Prednisolone Acetate Opth 1% Susp 1 Drop LEFT EYE BID Hydrochlorothiazide 25 Mg Tab 25 Mg PO DAILY Norvasc (Amlodipine Besylate) 5 Mg Tab 5 Mg PO DAILY Acyclovir 800 Mg Tab 800 Mg PO 5 TIMES A DAY Reported Docusate Sodium 100 Mg Cap 300 Mg PO DAILY Multi For Her (Multiple Vitamins W/ Minerals) 1 Tab Tab Proventil Hfa 6.7 GM Inh (Albuterol Sulfate) 90 Mcg/Act Aer 2 Puff INH Q4-6H PRN (Debbie Gross MD R1) Allergies: Coded Allergies: Lortab (Verified Allergy, Severe, ITCHING "BUT I CAN TAKE WITH A BENADRYL ", 05/31/16) Morphine (Verified Adverse Reaction, Severe, Nausea/Vomiting/ITCH, 05/31/16 ) Family History Mother: from [place] in her 50s, [place] 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 Tobacco: 1/2ppd started at 16yo Alcohol: reports occasional, none in last few weeks due to illness; last hospitalization reported 2-3x/week beer Marijuana: 1-2x/week No history of IV drugs Smoked crack in the past, last use 5yrs ago (Debbie Gross MD R1) Physical Exam Vital Signs Vital Signs Date Time Temp Pulse Resp B/P Pulse Ox O2 Delivery O2 Flow Rate FiO2 05/31/16 13:01 16 98 Nasal Cannula 2 05/31/16 13:00 14 89 Room Air 05/31/16 13:00 58 20 132/75 96 Room Air 05/31/16 12:20 20 05/31/16 10:36 98.1 87 20 156/81 98 Physical Exam GENERAL: This is a well-nourished, well-developed AAF in obvious distress due to pain. Crying during exam due to pain. SKIN: No rashes, ecchymoses or lesions. Cool and dry. HEAD: Atraumatic. Normocephalic. No temporal or scalp tenderness. EYES: Left eye notable for conjunctival erythema and sclerotic appearance. The pupils are difficult to assess due to patient's photophobia. Excessive tear production. Left eye appears erythematous but patient crying often during exam. EOMI. Periorbital swelling noted. No obvious crusting. No skin changes surrounding eye area on either side. ENT: Nose without bleeding, purulent drainage or septal hematoma. Throat without erythema, tonsillar hypertrophy or exudate. Uvula midline. Airway patent. Dentures in place. NECK: Trachea midline. No JVD or lymphadenopathy. Supple, nontender, no meningeal signs. CARDIOVASCULAR: Regular rate and rhythm without murmurs, gallops, or rubs. RESPIRATORY: Clear to auscultation. Breath sounds equal bilaterally. No wheezes , rales, or rhonchi. GASTROINTESTINAL: Abdomen soft, non-tender, nondistended. No hepato-splenomegaly , or palpable masses. No guarding. MUSCULOSKELETAL: Extremities without clubbing, cyanosis, or edema. No joint tenderness, effusion, or edema noted. No calf tenderness. NEUROLOGICAL: Awake and alert. Cranial nerves II through XII intact. Motor and sensory grossly within normal limits. Strength in all muscle groups. Normal speech. Laboratory Laboratory Tests Test 05/31/16 11:20 White Blood Count 9.9 Red Blood Count 5.44 Hemoglobin 13.6 Hematocrit 40.3 Mean Corpuscular Volume 73.9 Mean Corpuscular Hemoglobin 25.0 Mean Corpuscular Hemoglobin 33.8 Concent Red Cell Distribution Width 13.8 Platelet Count 234 Mean Platelet Volume 9.0 Neutrophils (%) (Auto) 62.0 Lymphocytes (%) (Auto) 26.6 Monocytes (%) (Auto) 8.6 Eosinophils (%) (Auto) 1.7 Basophils (%) (Auto) 1.1 Neutrophils # (Auto) 6.2 Lymphocytes # (Auto) 2.6 Monocytes # (Auto) 0.9 Eosinophils # (Auto) 0.2 Basophils # (Auto) 0.1 CBC Comment DIFF FINAL Differential Comment Sodium Level 138 Potassium Level 3.7 Chloride Level 103 Carbon Dioxide Level 26.6 Anion Gap 8 Blood Urea Nitrogen 22 Creatinine 1.05 Estimat Glomerular Filtration 65 Rate Random Glucose 92 Calcium Level 10.0 (Debbie Gross MD R1) Result Diagram: 05/31/16 1120 05/31/16 1120 Assessment and Plan Assessment and Plan 60F with one-month history of persistent herpes simplex keratitis admitted from ophthalmology clinic (Dr. Lagos) for failed outpatient therapy and pain control. Code Status Full Code Discussed Condition With SDW Dr. Owen (Debbie Gross MD R1) Attending Attestation The patient has been seen and examined. The chart and all resident notes have been reviewed. I agree that inpatient care is appropriate and that a two midnight stay is expected for the reasons documented in the resident history and physical. I have discussed this with the resident and certify the resident s order for inpatient admission. (Saskia Anand MD) Problem List: (1) Herpes simplex keratitis of left eye Status: Acute Plan: Patient with previous admission May 26-2016 for herpes simplex keratitis of the left eye. 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 Treatment has been resistant over the last couple weeks. Due to worsening symptoms and continued pain today, was referred to the ED for re- admission. Ophthalmology consulted: Appreciate recommendations. I spoke with Dr. Lagos who will see the patient in the morning. She requests Acyclovir PO 800 mg TID, continue trifluridine topical q2-3hr. She also would like Zirgan (topical ganciclovir) to be substituted for trifluridine if available; it is not available in our pharmacy. She will not continue topical prednisolone at this time. -Consider orbital or head CT if patient worsens clinically or has more severe symptoms despite pain control -Pain control with tramadol and Toradol for breakthrough Medications: * Acyclovir 800 mg 5x/day (has been taking 3/3-current) * Trifluridine q2h left eye (has been using 3/4-current) * Finished prednisolone topical solution to the left eye as outpatient (2) Hypertension Status: Acute Plan: BP 172/83 in ED today. Was prescribed current home meds for the first time during previous hospital stay this month. -Continue home HCTZ 25mg daily -Continue home Amlodipine 5mg daily (3) COPD (chronic obstructive pulmonary disease) Status: Chronic Plan: Long history of smoking in conjunction with a history of asthma. She also reports a history of pleural effusion/edema for which she takes Lasix daily -Continue home prednisone 9 mg daily (decreased by one mg), may need to wean off as this can increase risk of infection preclude healing -Albuterol as needed -Nicotine patch high-dose (4) Fluids/Electrolytes/Nutrition/Prophylaxis Status: Acute Plan: Fluids: NS @ 110ml/hr Electrolytes: monitor and replete as needed Nutrition: Regular DVT Prophylaxis: Lovenox 40mg subQ q24hr (Debbie Gross MD R1) Debbie Gross MD R1 May 31, 2016 14:58 Saskia Anand MD Jun 01, 2016 17:18
[2016-05-31] MEDS ORDERED: MORPHINE SULFATE 4 MG/ML INJ IM ONE (15:00)
[2016-05-31] MEDS ORDERED: ALBUTEROL SULFATE 90 MCG/ACT HFA 8 GM INHALER INH PRN (15:00)
[2016-05-31] MEDS ORDERED: NALOXONE HCL 0.4 MG/ML AMP IV PRN (15:15)
[2016-05-31] MEDS ORDERED: ONDANSETRON HCL 4 MG/2 ML VIAL IVP PRN (15:15)
[2016-05-31 16:03] LABS: TOTAL BILIRUBIN ADULT 0.2 MG/DL (0.2-1.0)
[2016-05-31 16:10] LABS: INDIRECT BILIRUBIN 0.1 MG/DL (0.0-0.8)
[2016-05-31] MEDS: SODIUM CHLOR 0.9% 1000 ML INJ 1,000 ML IV SCH (17:03)
[2016-05-31] MEDS: ENOXAPARIN SODIUM 40 MG/0.4 ML SYRINGE SQ SCH (17:03)
[2016-05-31 17:06] VITALS: BP 151/75; PULSE 65; RESP 20; O2SAT 96
[2016-05-31] MEDS: IBUPROFEN 600 MG TAB PO PRN (18:09)
[2016-05-31 18:14] VITALS: BP 172/83; PULSE 54; RESP 18; TEMP 98.2; O2SAT 55
[2016-05-31] MEDS: ACYCLOVIR 800 MG TAB PO SCH ×2 (19:37→22:58)
[2016-05-31] MEDS: TRIFLURIDINE 1% LEFT EYE SCH ×2 (19:39→22:00)
[2016-05-31] MEDS: traMADol HCL 50 MG TAB PO PRN (19:52)
[2016-05-31] MEDS ORDERED: TRIFLURIDINE 1% LEFT EYE SCH (20:00)
[2016-05-31 20:20] VITALS: BP 160/77; PULSE 62; RESP 18; TEMP 97.8; O2SAT 97
[2016-05-31] MEDS: REMOVE OLD NICODERM (NICOTINE) PATCH TD SCH (21:00)
[2016-05-31] MEDS ORDERED: prednisoLONE ACETATE 1% OPHT SUSP 5 ML BTL LEFT EYE SCH (21:00)
[2016-05-31] MEDS: SODIUM CHLORIDE 0.9% FLUSH 5 ML FLUSH FLUSH SCH (21:00)
[2016-05-31] MEDS ORDERED: CYCLOPENTOLATE HCL 1% OPHT SOLN 2 ML BTL EACH EYE SCH (22:00)
[2016-06-01] MEDS: SODIUM CHLOR 0.9% 1000 ML INJ 1,000 ML IV SCH ×2 (01:19→08:04)
[2016-06-01 01:40] VITALS: BP 143/82; PULSE 86; RESP 18; TEMP 97.8; O2SAT 97
[2016-06-01] MEDS: TRIFLURIDINE 1% LEFT EYE SCH ×12 (02:00→22:49)
[2016-06-01 04:27] VITALS: BP 144/76; PULSE 82; RESP 18; TEMP 97.8; O2SAT 97
[2016-06-01] MEDS: ACYCLOVIR 800 MG TAB PO SCH ×5 (06:03→21:41)
[2016-06-01 07:37] LABS: AUTOMATED NEUTROPHIL # 4.7 TH/MM3 (1.8-7.7); BASOPHIL % 0.5 % (0.0-2.0); EOSINOPHIL # 0.2 TH/MM3 (0-0.4); HEMATOCRIT 38.7 % (35.0-46.0); LYMPH % 36.8 % (9.0-44.0); LYMPHOCYTE # 3.2 TH/MM3 (1.0-4.8); MEAN CELL VOLUME 75.4 FL (80.0-100.0); MEAN CORPUSCULAR HGB CONC 31.9 % (32.0-36.0); MONO % 7.3 % (0.0-8.0); NEUT % 53.4 % (16.0-70.0); PLATELET COUNT 217 TH/MM3 (150-450); RED BLOOD COUNT 5.14 MIL/MM3 (4.00-5.30); WHITE BLOOD COUNT 8.7 TH/MM3 (4.0-11.0)
[2016-06-01 07:40] LABS: HEMO FLAGS AUTO DIFF
[2016-06-01 07:54] LABS: BICARBONATE 22.4 MEQ/L (21.0-32.0); POTASSIUM 4.2 MEQ/L (3.5-5.1)
[2016-06-01] MEDS: NICOTINE 21 MG/24 HR PATCH TD SCH (08:03)
[2016-06-01] MEDS: predniSONE 5 MG TAB PO SCH (08:03)
[2016-06-01] MEDS: DOCUSATE SODIUM 100 MG CAP PO SCH (08:04)
[2016-06-01] MEDS: amLODIPine BESYLATE 5 MG TAB PO SCH (08:04)
[2016-06-01] MEDS: HYDROCHLOROTHIAZIDE 25 MG TAB PO SCH (08:04)
[2016-06-01 08:05] VITALS: BP 135/78; PULSE 53; RESP 16; TEMP 95.4; O2SAT 96
[2016-06-01] MEDS: SODIUM CHLORIDE 0.9% FLUSH 5 ML FLUSH FLUSH SCH ×2 (08:05→21:41)
[2016-06-01 08:27] LABS: SCAN/DIFF AUTO DIFF CONFIRMED
[2016-06-01] MEDS ORDERED: predniSONE 1 MG TAB PO SCH (09:00)
[2016-06-01 11:54] VITALS: BP 146/79; PULSE 60; RESP 18; TEMP 96.4; O2SAT 93
[2016-06-01 12:03] LABS: AMPHETAMINE, URINE NEG (NEG); BARBITURATES, URINE NEG (NEG); COCAINE, URINE NEG (NEG)
[2016-06-01] MEDS: ENOXAPARIN SODIUM 40 MG/0.4 ML SYRINGE SQ SCH (14:29)
[2016-06-01] MEDS: IBUPROFEN 600 MG TAB PO PRN (14:29)
--- NOTE | 2016-06-01 15:48 | HHI.FPPN ---
Subjective Subjective Patient seen and examined. Case reviewed and disucssed with the resident team Please refer to resident H&P for further details regarding HPI, ROS, PMH, SurgHx , FH and SocHx In summary, patient is a 60yoF well known to Dr. Lagos for HSV Keratitis admitted for failed outpatient therapy and intractable eye pain Patient is seen this am reporting her pain is slightly improved from admission. Ophthalmology consult is pending. [facility] Objective Objective Laboratory Tests - Abnormals Test 06/01/16 06/01/16 06:15 11:00 Mean Corpuscular Volume 75.4 FL Mean Corpuscular Hemoglobin 24.0 PG Mean Corpuscular Hemoglobin 31.9 % Concent Blood Urea Nitrogen 19 MG/DL Creatinine 1.03 MG/DL Estimat Glomerular Filtration 66 ML/MIN Rate Urine Cannabinoids Screen POS Vital Signs 05/31/16 05/31/16 05/31/16 05/31/16 17:06 18:14 19:46 20:20 Temp 98.2 97.8 Pulse 65 54 62 Resp 20 18 18 18 B/P 151/75 172/83 160/77 Pulse Ox 96 55 97 O2 Delivery Room Air 05/31/16 06/01/16 06/01/16 06/01/16 21:00 01:40 04:27 08:05 Temp 97.8 97.8 95.4 Pulse 86 82 53 Resp 18 18 18 16 B/P 143/82 144/76 135/78 Pulse Ox 97 97 96 06/01/16 11:54 Temp 96.4 Pulse 60 Resp 18 B/P 146/79 Pulse Ox 93 Physical exam GENERAL: wdwn female, sitting up in bed, NAD SKIN: Warm and dry. No rashes, lesions HEAD: Normocephalic. AT EYES: L eye with injection, edema, marked discoloration of sclera/iris. No pain with extraocular movements ENT: OP clear. MMM NECK: Supple, trachea midline. No JVD or lymphadenopathy. CARDIOVASCULAR: Regular rate and rhythm without audible murmurs, gallops, or rubs. RESPIRATORY: Breath sounds equal and clear bilaterally. No accessory muscle use. GASTROINTESTINAL: Abdomen soft, non-tender, nondistended. MUSCULOSKELETAL: No cyanosis, or edema. No calf tenderness BACK: Nontender without obvious deformity. No CVA tenderness. NEURO: awake and alert. Normal speech. No vision in L eye Assessment Assessment 60yoF admitted with: HSV keratitis Failed outpatient therapy Asthma/COPD-on chronic prednisone Chronic Low back pain with left sciatica Illicit substance abuse HTN Continued tobacco dependence PLAN PLAN Ophthalmology consultation Anti-viral therapy Pain control Resume home meds as appropriate PFTs Taper steroids Counseled on tobacco, substance abuse Acute on chronic kidney injury Patient seen and examined. Case reviewed and discussed Agree with plan of care as discussed with me and documented in the resident note. Saskia Anand MD Jun 01, 2016 15:48
[2016-06-01 16:10] VITALS: BP 143/86; PULSE 85; RESP 18; TEMP 96.2; O2SAT 93
--- NOTE | 2016-06-01 18:34 | PD.CONS ---
History of Present Illness Service Ophthalmology Consult Requested By Reason for Consult HSV keratitis Primary Care Physician Carmel Raphael MD Diagnoses: History of Present Illness 60 BF well known to me with herpes simplex keratitis of left eye that has been present for approximately 1 month. We initially were treating her for a corneal abrasion but when it wasn't healing, HSV was suspected. She has been on Acyclovir 800mg 5/day (Day 12), Trifluridine 9x/day (Day 11). We readmitted her to [facility] for pain control. She seems to be doing better today. Past Family Social History Allergies: Coded Allergies: Lortab (Verified Allergy, Severe, ITCHING "BUT I CAN TAKE WITH A BENADRYL ", 05/31/16) Morphine (Verified Adverse Reaction, Severe, Nausea/Vomiting/ITCH, 05/31/16 ) Physical Exam Vital Signs Vital Signs Date Time Temp Pulse Resp B/P Pulse Ox O2 Delivery O2 Flow Rate FiO2 06/01/16 16:10 96.2 85 18 143/86 93 06/01/16 15:29 16 06/01/16 11:54 96.4 60 18 146/79 93 06/01/16 08:05 95.4 53 16 135/78 96 06/01/16 04:27 97.8 82 18 144/76 97 06/01/16 01:40 97.8 86 18 143/82 97 05/31/16 21:00 18 05/31/16 20:20 97.8 62 18 160/77 97 Physical Exam Va sc at near OD 20/20, OS 20/800 EOM full OU, no diplopia CVF full OU Pupils 2-1 no APD OU IOP deferred Anterior exam OD - normal eyelid, C/S W&Q, K clear, AC deep, pupil round, lens clear OS - normal eyelid, conj injection, vertical linear dendritic lesion 3x6 mm, AC deep, pupil round, lens clear Laboratory Laboratory Tests Test 06/01/16 06/01/16 06/01/16 06:15 10:32 11:00 White Blood Count 8.7 Red Blood Count 5.14 Hemoglobin 12.4 Hematocrit 38.7 Mean Corpuscular Volume 75.4 Mean Corpuscular Hemoglobin 24.0 Mean Corpuscular Hemoglobin 31.9 Concent Red Cell Distribution Width 14.0 Platelet Count 217 Mean Platelet Volume 9.3 Neutrophils (%) (Auto) 53.4 Lymphocytes (%) (Auto) 36.8 Monocytes (%) (Auto) 7.3 Eosinophils (%) (Auto) 2.0 Basophils (%) (Auto) 0.5 Neutrophils # (Auto) 4.7 Lymphocytes # (Auto) 3.2 Monocytes # (Auto) 0.6 Eosinophils # (Auto) 0.2 Basophils # (Auto) 0.0 CBC Comment AUTO DIFF Differential Comment AUTO DIFF CONFIRMED Sodium Level 138 Potassium Level 4.2 Chloride Level 104 Carbon Dioxide Level 22.4 Anion Gap 12 Blood Urea Nitrogen 19 Creatinine 1.03 Estimat Glomerular Filtration 66 Rate Random Glucose 79 Calcium Level 9.1 HIV (1&2) Antibody NEGATIVE Urine Opiates Screen NEG Urine Barbiturates Screen NEG Urine Amphetamines Screen NEG Urine Benzodiazepines Screen NEG Urine Cocaine Screen NEG Urine Cannabinoids Screen POS Result Diagram: 06/01/1661406/01/16614 Assessment and Plan Problem List: (1) Herpes simplex keratitis of left eye Status: Acute Plan: Continue Trifluridine q2h (Day 11), Acyclovir (Day 12), pain control. Will follow. Griselda Lagos MD Jun 01, 2016 18:34
[2016-06-01 20:26] VITALS: BP 147/97; PULSE 78; RESP 18; TEMP 97.8; O2SAT 97
[2016-06-01] MEDS: traMADol HCL 50 MG TAB PO PRN (21:41)
[2016-06-02] MEDS: oxyCODONE/ACETAMINOPHEN 10 MG/325 MG TAB PO PRN ×2 (00:12→23:08)
[2016-06-02] MEDS: SODIUM CHLORIDE 0.9% FLUSH 5 ML FLUSH FLUSH PRN ×3 (00:12→22:04)
[2016-06-02] MEDS: TRIFLURIDINE 1% LEFT EYE SCH ×13 (00:12→23:09)
[2016-06-02] MEDS: ACYCLOVIR 800 MG TAB PO SCH ×5 (05:19→20:26)
[2016-06-02] MEDS: IBUPROFEN 600 MG TAB PO PRN ×2 (05:58→15:54)
[2016-06-02 06:01] LABS: AUTOMATED NEUTROPHIL # 4.5 TH/MM3 (1.8-7.7); BASOPHIL % 0.5 % (0.0-2.0); EOSINOPHIL # 0.1 TH/MM3 (0-0.4); EOSINOPHIL % 1.6 % (0.0-4.0); HEMATOCRIT 37.1 % (35.0-46.0); LYMPHOCYTE # 2.8 TH/MM3 (1.0-4.8); MEAN CELL VOLUME 74.6 FL (80.0-100.0); MEAN CORPUSCULAR HEMOGLOBIN 24.2 PG (27.0-34.0); MEAN CORPUSCULAR HGB CONC 32.4 % (32.0-36.0); MONO % 7.7 % (0.0-8.0); NEUT % 55.2 % (16.0-70.0); PLATELET COUNT 189 TH/MM3 (150-450); RED BLOOD COUNT 4.97 MIL/MM3 (4.00-5.30); RED CELL DISTRIBUTION WIDTH 13.7 % (11.6-17.2); WHITE BLOOD COUNT 8.1 TH/MM3 (4.0-11.0)
[2016-06-02 06:14] LABS: HEMO FLAGS AUTO DIFF
[2016-06-02 06:25] LABS: BICARBONATE 26.3 MEQ/L (21.0-32.0); POTASSIUM 3.6 MEQ/L (3.5-5.1)
--- NOTE | 2016-06-02 07:22 | HHI.FPPN ---
Subjective Remarks Cancelled document, see duplicate. Objective Vitals Vital Signs Date Time Temp Pulse Resp B/P Pulse Ox O2 Delivery O2 Flow Rate FiO2 06/02/16 01:16 16 06/01/16 22:47 16 06/01/16 20:26 97.8 78 18 147/97 97 06/01/16 16:10 96.2 85 18 143/86 93 06/01/16 15:29 16 06/01/16 11:54 96.4 60 18 146/79 93 06/01/16 08:05 95.4 53 16 135/78 96 Result Diagram: 06/02/1651206/02/16512 A/P Assessment and Plan 60F with one-month history of persistent herpes simplex keratitis admitted from ophthalmology clinic (Dr. Lagos) for failed outpatient therapy and pain control. Problem List: (1) Herpes simplex keratitis of left eye Status: Acute Plan: Patient with previous admission May 26-2016 for herpes simplex keratitis of the left eye. 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 Lagos, care manager cna. Treatment has been resistant over the last couple weeks. Due to worsening symptoms and continued pain today, was referred to the ED for re- admission. Ophthalmology consulted: Appreciate recommendations. I spoke with Dr. Lagos who will see the patient in the morning. She requests Acyclovir PO 800 mg TID, continue trifluridine topical q2-3hr. She also would like Zirgan (topical ganciclovir) to be substituted for trifluridine if available; it is not available in our pharmacy. She will not continue topical prednisolone at this time. -Consider orbital or head CT if patient worsens clinically or has more severe symptoms despite pain control -Pain control with tramadol and Toradol for breakthrough Medications: * Acyclovir 800 mg 5x/day (has been taking 3/3-current) * Trifluridine q2h left eye (has been using 3/4-current) * Finished prednisolone topical solution to the left eye as outpatient (2) Hypertension Status: Acute Plan: BP 172/83 in ED today. Was prescribed current home meds for the first time during previous hospital stay this month. -Continue home HCTZ 25mg daily -Continue home Amlodipine 5mg daily (3) COPD (chronic obstructive pulmonary disease) Status: Chronic Plan: Long history of smoking in conjunction with a history of asthma. She also reports a history of pleural effusion/edema for which she takes Lasix daily -Continue home prednisone 9 mg daily (decreased by one mg), may need to wean off as this can increase risk of infection preclude healing -Albuterol as needed -Nicotine patch high-dose (4) Fluids/Electrolytes/Nutrition/Prophylaxis Status: Acute Plan: Fluids: NS @ 110ml/hr Electrolytes: monitor and replete as needed Nutrition: Regular DVT Prophylaxis: Lovenox 40mg subQ q24hr Gilbert Owen MD R2 Jun 02, 2016 07:22
[2016-06-02 07:34] LABS: OVALOCYTES 1+ (NORMAL); SCAN/DIFF AUTO DIFF CONFIRMED
[2016-06-02 08:06] VITALS: BP 140/80; PULSE 62; RESP 17; TEMP 96; O2SAT 96
[2016-06-02] MEDS: NICOTINE 21 MG/24 HR PATCH TD SCH (08:38)
[2016-06-02] MEDS: SODIUM CHLORIDE 0.9% FLUSH 5 ML FLUSH FLUSH SCH ×2 (08:39→20:16)
[2016-06-02] MEDS: predniSONE 5 MG TAB PO SCH (08:40)
[2016-06-02] MEDS: amLODIPine BESYLATE 5 MG TAB PO SCH (08:40)
[2016-06-02] MEDS: HYDROCHLOROTHIAZIDE 25 MG TAB PO SCH (08:40)
[2016-06-02] MEDS: DOCUSATE SODIUM 100 MG CAP PO SCH (08:41)
[2016-06-02 12:02] VITALS: BP 135/86; PULSE 67; RESP 17; TEMP 95.7; O2SAT 96
--- NOTE | 2016-06-02 13:33 | HHI.PR ---
Subjective Remarks Pt doing well, pain well controlled. Objective Vital Signs Date Time Temp Pulse Resp B/P Pulse Ox O2 Delivery O2 Flow Rate FiO2 06/02/16 12:02 95.7 67 17 135/86 96 06/02/16 08:34 18 06/02/16 08:06 96.0 62 17 140/80 96 06/02/16 01:16 16 06/01/16 22:47 16 06/01/16 20:26 97.8 78 18 147/97 97 06/01/16 16:10 96.2 85 18 143/86 93 Result Diagram: 06/02/16 0513 06/02/16 0513 Objective Remarks Va OS 20/400 Cornea OS - vertical linear epithelial defect - 4mm - improved from yesterday Assessment and Plan Problem List: (1) Herpes simplex keratitis of left eye Status: Acute Plan: Pain and cornea improved from yesterday. Continue Trifluridine q2h (Day 12), Acyclovir (Day 13), pain control. Will follow. Griselda Lagos MD Jun 02, 2016 13:33
--- NOTE | 2016-06-02 14:06 | HHI.FPPN ---
Subjective Remarks Feeling well. Pain is well controlled. Ambulating and eating whole meals. No concerns. Evaluated by Dr. Lagos this AM. Continue current treatment plan. Patient thinks redness is going down as well as photophobia is improving. Still with visual impairment on the left side. (Gilbert Owen MD R2) Objective Vitals Vital Signs Date Time Temp Pulse Resp B/P Pulse Ox O2 Delivery O2 Flow Rate FiO2 06/02/16 12:02 95.7 67 17 135/86 96 06/02/16 08:34 18 06/02/16 08:06 96.0 62 17 140/80 96 06/02/16 01:16 16 06/01/16 22:47 16 06/01/16 20:26 97.8 78 18 147/97 97 06/01/16 16:10 96.2 85 18 143/86 93 (Gilbert Owen MD R2) Result Diagram: 06/02/16 0513 06/02/16 0513 Objective Remarks GENERAL: Well-nourished, well-developed patient. Resting. SKIN: Warm and dry. HEAD: Normocephalic. EYES: Conjunctival injection on left side, less drainage. Scarring over cornea remains unchanged. NECK: Supple, trachea midline. No JVD or lymphadenopathy. CARDIOVASCULAR: Regular rate and rhythm without murmurs, gallops, or rubs. RESPIRATORY: Breath sounds equal bilaterally. No accessory muscle use. GASTROINTESTINAL: Abdomen soft, non-tender, nondistended. EXTREMITIES: No cyanosis, or edema. NEUROLOGICAL: Awake, alert, and oriented x 3. Non-focal. (Gilbert Owen MD R2) A/P Assessment and Plan 60F with one-month history of persistent herpes simplex keratitis admitted from ophthalmology clinic (Dr. Lagos) for failed outpatient therapy and pain control. (Gilbert Owen MD R2) Attending Attestation Patient seen and examined. Case reviewed and discussed. Agree with plan of care as discussed with me and documented in the resident note. (Saskia Anand MD) Problem List: (1) Herpes simplex keratitis of left eye Status: Acute Plan: Patient with previous admission May 26-2016 for herpes simplex keratitis of the left eye. 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 Treatment has been resistant over the last couple weeks. Due to worsening symptoms and continued pain today, was referred to the ED for re- admission. Ophthalmology consulted: Appreciate recommendations. I spoke with Dr. Lagos who will see the patient in the morning. She requests Acyclovir PO 800 mg TID, continue trifluridine topical q2-3hr. She also would like Zirgan (topical ganciclovir) to be substituted for trifluridine if available; it is not available in our pharmacy. She will not continue topical prednisolone at this time. HIV was negative. -Consider orbital or head CT if patient worsens clinically or has more severe symptoms despite pain control -Pain control with tramadol and Toradol for breakthrough Medications: * Acyclovir 800 mg 5x/day (has been taking 3/3-current) * Trifluridine q2h left eye (has been using 3/4-current) * Finished prednisolone topical solution to the left eye as outpatient (2) Hypertension Status: Acute Plan: BP 146-120 / 76-86 today. Was prescribed current home meds for the first time during previous hospital stay this month. -Continue home HCTZ 25mg daily -Continue home Amlodipine 5mg daily (3) COPD (chronic obstructive pulmonary disease) Status: Chronic Plan: Long history of smoking in conjunction with a history of asthma. She also reports a history of pleural effusion/edema for which she takes Lasix daily -Wean prednisone from 9 --> 5 mg daily. Breathing is nonlabored. -Albuterol as needed -Nicotine patch high-dose (4) Fluids/Electrolytes/Nutrition/Prophylaxis Status: Acute Plan: Fluids: NS @ 110ml/hr - d/c'ed 06/01/16 Electrolytes: monitor and replete as needed Nutrition: Regular DVT Prophylaxis: Lovenox 40mg subQ q24hr dw Dr. Anand (Gilbert Owen MD R2) Gilbert Owen MD R2 Jun 02, 2016 14:06 Saskia Anand MD Jun 03, 2016 17:32
[2016-06-02 15:48] VITALS: BP 138/77; PULSE 70; RESP 18; TEMP 96; O2SAT 96
[2016-06-02] MEDS: ENOXAPARIN SODIUM 40 MG/0.4 ML SYRINGE SQ SCH (15:53)
[2016-06-02 19:40] VITALS: BP 120/76; PULSE 66; RESP 20; TEMP 98.4; O2SAT 97
[2016-06-02] MEDS: REMOVE OLD NICODERM (NICOTINE) PATCH TD SCH (21:00)
[2016-06-02 23:12] VITALS: BP 159/79; PULSE 62; RESP 20; TEMP 97.9; O2SAT 97
[2016-06-03] MEDS: TRIFLURIDINE 1% LEFT EYE SCH ×12 (01:27→23:52)
[2016-06-03] MEDS: IBUPROFEN 600 MG TAB PO PRN ×3 (03:08→18:30)
[2016-06-03 03:50] VITALS: BP 124/74; PULSE 57; RESP 20; TEMP 98.2; O2SAT 98
[2016-06-03] MEDS: ACYCLOVIR 800 MG TAB PO SCH ×5 (06:05→22:30)
[2016-06-03 06:22] VITALS: BP 132/61; PULSE 62; RESP 18; TEMP 97.4; O2SAT 98
[2016-06-03 08:00] VITALS: BP 117/65; PULSE 50; RESP 20; TEMP 97.4; O2SAT 98
[2016-06-03] MEDS: SODIUM CHLORIDE 0.9% FLUSH 5 ML FLUSH FLUSH SCH ×2 (09:00→22:33)
[2016-06-03] MEDS: REMOVE OLD NICODERM (NICOTINE) PATCH TD SCH (09:08)
[2016-06-03] MEDS: NICOTINE 21 MG/24 HR PATCH TD SCH (09:08)
[2016-06-03] MEDS: HYDROCHLOROTHIAZIDE 25 MG TAB PO SCH (09:09)
[2016-06-03] MEDS: DOCUSATE SODIUM 100 MG CAP PO SCH (09:09)
[2016-06-03] MEDS: amLODIPine BESYLATE 5 MG TAB PO SCH (09:09)
[2016-06-03] MEDS: predniSONE 1 MG TAB PO SCH (09:24)
--- NOTE | 2016-06-03 10:37 | HHI.FPPN ---
Subjective Remarks Patient was seen and examined this morning. She notes she has had trouble sleeping due to multiple interruptions this morning but feels much better overall. Does note a dry cough today which she reports is not new but may be a little worse today. She denies fevers, chills, nausea, vomiting ,chest pain, shortness of breath. Moving around without difficulty. Eating and drinking well. Notes her left eye feels better but still has no vision in it. (Debbie Gross MD R1) Objective Vitals Vital Signs Date Time Temp Pulse Resp B/P Pulse Ox O2 Delivery O2 Flow Rate FiO2 06/03/16 08:00 97.4 50 20 117/65 98 06/03/16 06:22 97.4 62 18 132/61 98 06/03/16 04:41 16 06/03/16 03:50 98.2 57 20 124/74 98 06/03/16 01:27 16 06/02/16 23:12 97.9 62 20 159/79 97 06/02/16 19:40 98.4 66 20 120/76 97 06/02/16 15:48 96.0 70 18 138/77 96 06/02/16 12:02 95.7 67 17 135/86 96 I/O 06/02/16 06/02/16 06/02/16 06/03/16 06/03/16 06/03/16 06:59 14:59 22:59 06:59 14:59 22:59 Intake Total 0 ml Balance 0 ml Intake Oral 0 ml # Voids 2 1 1 # Bowel Movements 1 (Debbie Gross MD R1) Result Diagram: 06/02/1651206/02/16512 Objective Remarks GENERAL: Well-nourished, well-developed AA female, sleeping on initial encounter. SKIN: Warm and dry. HEAD: Normocephalic. EYES: Conjunctival injection on left side. Scarring over cornea remains unchanged. Periocular areas are clean without crusting; eyes not actively draining. NECK: Supple, trachea midline. No JVD or lymphadenopathy. CARDIOVASCULAR: Regular rate and rhythm without murmurs, gallops, or rubs. RESPIRATORY: Breath sounds equal bilaterally. No accessory muscle use. GASTROINTESTINAL: Abdomen soft, non-tender, nondistended. EXTREMITIES: No cyanosis, or edema. NEUROLOGICAL: Awake, alert, and oriented x 3. Non-focal. Medications and IVs Inpatient Medications Acyclovir (Zovirax) 800 mg 5 TIMES A DAY PO Last administered on 06/03/16 06: 05; Start 05/31/16 at 18:00 Albuterol Sulfate (Proair Hfa Inh) 2 puff Q4H PRN INH SHORTNESS OF BREATH; Start 05/31/16 at 15:00 Amlodipine Besylate (Norvasc) 5 mg DAILY PO Last administered on 06/03/16 09: 09; Start 06/01/16 at 09:00 Cyclopentolate HCl (Cyclogyl 1% Opth Soln) 1 drop Q8HR EACH EYE Last administered on 05/31/16 22:58; Start 05/31/16 at 22:00; Stop 06/01/16 at 05:46 ; Status DC Diphenhydramine HCl (Benadryl Inj) 25 mg ONCE ONCE IV PUSH Last administered on 05/31/16 12:15; Start 05/31/16 at 11:30; Stop 05/31/16 at 11:31; Status DC Diphenhydramine HCl 25 mg 25 mg ONCE ONCE IV PUSH Last administered on 15:10; Start 05/31/16 at 15:00; Stop 05/31/16 at 15:03; Status DC Docusate Sodium (Colace) 300 mg DAILY PO Last administered on 06/03/16 09:09; Start 06/01/16 at 09:00 Enoxaparin Sodium (Lovenox Inj) 40 mg Q24H SQ Last administered on 06/02/16 15 :53; Start 05/31/16 at 16:00 Fluorescein Sodium (Gkqsj-[id number] A.t.) 1 mg ONCE ONCE EACH EYE Last administered on 05/31/16 13:30; Start 05/31/16 at 11:15; Stop 05/31/16 at 11:16 ; Status DC Hydrochlorothiazide (Hydrodiuril) 25 mg DAILY PO Last administered on 09:09; Start 06/01/16 at 09:00 Ibuprofen (Motrin) 600 mg Q6H PRN PO PAIN 3-5 Last administered on 06/03/16 09 :24; Start 05/31/16 at 15:15 IV Flush (NS Flush) 2 ml BID FLUSH Last administered on 06/03/16 09:00; Start 05/31/16 at 21:00 Miscellaneous Information 1 HS TD Last administered on 06/03/16 09:08; Start 06/01/16 at 21:00 Morphine Sulfate (Morphine Inj) 4 mg ONCE ONCE IM Last administered on 15:09; Start 05/31/16 at 15:00; Stop 05/31/16 at 15:03; Status DC Naloxone HCl (Narcan Inj) 0.4 mg UNSCH PRN IV SEE LABEL COMMENTS; Start at 15:15 Nicotine (Habitrol 21 Mg Patch.24 Hr) 1 patch DAILY TD Last administered on 09:08; Start 06/01/16 at 09:00 Ondansetron HCl (Zofran Inj) 4 mg Q6H PRN IVP NAUSEA OR VOMITING; Start at 15:15 Oxycodone/ Acetaminophen (Percocet 10-325 Mg) 1 tab Q6H PRN PO BREAKTHROUGH PAIN Last administered on 06/02/16 23:08; Start 05/31/16 at 21:45 Prednisolone Acetate (Pred Forte 1% Opth Susp) 1 drop BID LEFT EYE ; Start 05/31 at 21:00; Stop 05/31/16 at 21:00; Status DC Prednisone (Deltasone) 2 mg DAILY PO Last administered on 06/03/16 09:24; Start 06/03/16 at 09:00 Proparacaine HCl (Alcaine 0.5% Opht Soln) 1 drop ONCE ONCE EACH EYE Last administered on 05/31/16 12:35; Start 05/31/16 at 11:00; Stop 05/31/16 at 11:12 ; Status DC Sodium Chloride (NS 1000 ml Inj) 1,000 ml @ 110 mls/hr Q9H6M IV Last administered on 06/01/16 08:04; Start 05/31/16 at 15:08; Stop 06/01/16 at 09:44 ; Status DC Tramadol HCl (Ultram) 50 mg Q4H PRN PO pain 6-10 Last administered on 21:41; Start 05/31/16 at 19:45 Trifluridine (Viroptic 1% Opht Soln) 1 drop Q2HR LEFT EYE Last administered on 06/03/16t 08:00; Start 05/31/16 at 20:00 (Debbie Gross MD R1) Urinary Catheter: No (Debbie Gross MD R1) Vascular Central Line Catheter: No (Debbie Gross MD R1) A/P Assessment and Plan 60F with one-month history of persistent herpes simplex keratitis admitted from ophthalmology clinic (Dr. Lagos) for failed outpatient therapy and pain control. Discharge Planning Pending overall improvement and clearance from Dr. Lagos (ophthalmology) ( Debbie Gross MD R1) Attending Attestation Patient seen and examined. Case reviewed and discussed. Agree with plan of care as discussed with me and documented in the resident note. Continue steroid taper. CXR today. (Saskia Anand MD) Problem List: (1) Herpes simplex keratitis of left eye Status: Acute Plan: Patient with previous admission May 26-2016 for herpes simplex keratitis of the left eye. 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 Treatment has been resistant over the last couple weeks. Due to worsening symptoms and continued pain today, was referred to the ED for re- admission. Ophthalmology consulted: Appreciate recommendations. I spoke with Dr. Lagos who will see the patient in the morning. She requests Acyclovir PO 800 mg TID, continue trifluridine topical q2-3hr. She also would like Zirgan (topical ganciclovir) to be substituted for trifluridine if available; it is not available in our pharmacy. She will not continue topical prednisolone at this time. HIV was negative. -Consider orbital or head CT if patient worsens clinically or has more severe symptoms despite pain control -Pain control with Pecocet and Toradol as needed Medications: * Acyclovir 800 mg 5x/day (has been taking 3/3-current) * Trifluridine q2h left eye (has been using 3/4-current) * Finished prednisolone topical solution to the left eye as outpatient (2) Hypertension Status: Acute Plan: BP 120s-150s/70s over last 24 hr. Was prescribed current home meds for the first time during previous hospital stay this month. -Continue home HCTZ 25mg daily -Continue home Amlodipine 5mg daily (3) COPD (chronic obstructive pulmonary disease) Status: Chronic Plan: Long history of smoking in conjunction with a history of asthma. She also reports a history of pleural effusion/edema for which she takes Lasix daily -Wean prednisone during hospital stay. Started at 9mg day. Now getting 2mg daily. Will continue 2mg daily this week and monitor, increase as needed. Goal is to wean off prior to discharge. - Breathing is nonlabored. RR 16-20 -Albuterol as needed -Nicotine patch high-dose (4) Fluids/Electrolytes/Nutrition/Prophylaxis Status: Acute Plan: Fluids: tolerating PO Electrolytes: monitor and replete as needed Nutrition: Regular diet DVT Prophylaxis: Lovenox 40mg subQ q24hr wdw Dr. Anand (Debbie Gross MD R1) Debbie Gross MD R1 Jun 03, 2016 10:37 Saskia Anand MD Jun 03, 2016 17:32
[2016-06-03 12:00] VITALS: BP_SYST 132; BP_SYST 134; BP_DIAS 60; BP_DIAS 78; PULSE 53; PULSE 69; RESP 20; TEMP 97.7; TEMP 97.8; O2SAT 95; O2SAT 97
--- NOTE | 2016-06-03 13:38 | HHI.PR ---
Subjective Remarks Pt doing well, pain well controlled, vision stable. Objective Vital Signs Date Time Temp Pulse Resp B/P Pulse Ox O2 Delivery O2 Flow Rate FiO2 06/03/16 08:00 97.4 50 20 117/65 98 06/03/16 06:22 97.4 62 18 132/61 98 06/03/16 04:41 16 06/03/16 03:50 98.2 57 20 124/74 98 06/03/16 01:27 16 06/02/16 23:12 97.9 62 20 159/79 97 06/02/16 19:40 98.4 66 20 120/76 97 06/02/16 15:48 96.0 70 18 138/77 96 I/O 06/02/16 06/02/16 06/02/16 06/03/16 06/03/16 06/03/16 06:59 14:59 22:59 06:59 14:59 22:59 Intake Total 0 ml Balance 0 ml Intake Oral 0 ml # Voids 2 1 1 # Bowel Movements 1 Result Diagram: 06/02/16 0513 06/02/16 0513 Objective Remarks Va OS 20/800 Cornea OS - vertical linear epithelial defect - 2mm - improved from yesterday Assessment and Plan Problem List: (1) Herpes simplex keratitis of left eye Status: Acute Plan: Pain and cornea improved from yesterday. Continue Trifluridine q2h (Day 13), Acyclovir (Day 14), pain control. Will follow. Griselda Lagos MD Jun 03, 2016 13:38
[2016-06-03 16:00] VITALS: BP 134/78; PULSE 69; RESP 20; TEMP 97.7; O2SAT 97
[2016-06-03] MEDS ORDERED: RESP: ALBUTEROL 2.5 MG/IPRATROPIUM 0.5 MG NEB (PRN) NEB (16:30)
[2016-06-03] MEDS: ENOXAPARIN SODIUM 40 MG/0.4 ML SYRINGE SQ SCH (18:26)
[2016-06-03] MEDS: FLUTICASONE PROPIONATE 50 MCG/ACT 16 GM NASAL SPRAY NASAL SCH (18:31)
--- NOTE | 2016-06-03 19:33 | RADRPT ---
EXAM DATE/TIME: 06/03/2016 18:59 [facility] COMPARISON: No previous studies available for comparison. INDICATIONS : Cough MEDICAL HISTORY : Chronic obstructive pulmonary disease. SURGICAL HISTORY : None. ENCOUNTER: Initial ACUITY: 2 weeks PAIN SCORE: 0/10 LOCATION: chest FINDINGS: A single view of the chest demonstrates the lungs to be symmetrically aerated without evidence of mas s, infiltrate or effusion. The cardiomediastinal contours are unremarkable. Osseous structures are intact. CONCLUSION: No evidence of acute cardiopulmonary disease. Kyler Kwan MD on June 03, 2016 at 19:31 Board Certified Radiologist. This report was verified electronically.
[2016-06-03 20:00] VITALS: BP 133/72; PULSE 80; RESP 18; TEMP 97.8; O2SAT 97
[2016-06-03] MEDS: oxyCODONE/ACETAMINOPHEN 10 MG/325 MG TAB PO PRN (22:30)
[2016-06-04] VITALS: BP 132/76; PULSE 69; RESP 18; TEMP 98.1; O2SAT 98
[2016-06-04] MEDS: TRIFLURIDINE 1% LEFT EYE SCH ×9 (03:05→23:34)
[2016-06-04 04:00] VITALS: BP 121/68; PULSE 62; RESP 18; TEMP 97.2; O2SAT 99
[2016-06-04] MEDS: IBUPROFEN 600 MG TAB PO PRN ×2 (04:49→08:59)
[2016-06-04 05:49] LABS: AUTOMATED NEUTROPHIL # 4.9 TH/MM3 (1.8-7.7); BASOPHIL % 0.5 % (0.0-2.0); EOSINOPHIL # 0.2 TH/MM3 (0-0.4); EOSINOPHIL % 2.4 % (0.0-4.0); HEMATOCRIT 40.8 % (35.0-46.0); LYMPH % 30.6 % (9.0-44.0); LYMPHOCYTE # 2.5 TH/MM3 (1.0-4.8); MEAN CELL VOLUME 74.2 FL (80.0-100.0); MEAN CORPUSCULAR HEMOGLOBIN 23.6 PG (27.0-34.0); MEAN CORPUSCULAR HGB CONC 31.8 % (32.0-36.0); NEUT % 58.5 % (16.0-70.0); PLATELET COUNT 193 TH/MM3 (150-450); RED BLOOD COUNT 5.49 MIL/MM3 (4.00-5.30); RED CELL DISTRIBUTION WIDTH 13.6 % (11.6-17.2); WHITE BLOOD COUNT 8.3 TH/MM3 (4.0-11.0)
[2016-06-04 05:54] LABS: HEMO FLAGS AUTO DIFF
[2016-06-04 06:08] LABS: BICARBONATE 27.3 MEQ/L (21.0-32.0); POTASSIUM 3.5 MEQ/L (3.5-5.1)
[2016-06-04] MEDS: ACYCLOVIR 800 MG TAB PO SCH ×5 (06:10→20:36)
[2016-06-04 07:16] LABS: OVALOCYTES 1+ (NORMAL); SCAN/DIFF AUTO DIFF CONFIRMED
[2016-06-04 08:06] VITALS: BP 118/60; PULSE 58; RESP 16; TEMP 97.7; O2SAT 95
[2016-06-04] MEDS: predniSONE 1 MG TAB PO SCH (08:55)
[2016-06-04] MEDS: DOCUSATE SODIUM 100 MG CAP PO SCH (08:55)
[2016-06-04] MEDS: HYDROCHLOROTHIAZIDE 25 MG TAB PO SCH (08:55)
[2016-06-04] MEDS: REMOVE OLD NICODERM (NICOTINE) PATCH TD SCH (08:56)
[2016-06-04] MEDS: NICOTINE 21 MG/24 HR PATCH TD SCH (08:56)
[2016-06-04] MEDS: amLODIPine BESYLATE 5 MG TAB PO SCH (08:56)
[2016-06-04] MEDS: SODIUM CHLORIDE 0.9% FLUSH 5 ML FLUSH FLUSH SCH ×2 (08:59→20:33)
[2016-06-04] MEDS: FLUTICASONE PROPIONATE 50 MCG/ACT 16 GM NASAL SPRAY NASAL SCH (09:02)
--- NOTE | 2016-06-04 09:28 | HHI.FPPN ---
Subjective Remarks Patient concerned with nightmares - reports she gets them when she takes percocet prior to bed. Will hold during nighttime. Otherwise she is still having throbbing pain in her left eye - no pain with eye movements, no fevers, no chills. No CP or SOB. Non productive cough that is new. (Gilbert Owen MD R2) Objective Vitals Vital Signs Date Time Temp Pulse Resp B/P Pulse Ox O2 Delivery O2 Flow Rate FiO2 06/04/16 08:06 97.7 58 16 118/60 95 06/04/16 04:00 97.2 62 18 121/68 99 06/04/16 00:00 98.1 69 18 132/76 98 06/03/16 20:00 97.8 80 18 133/72 97 06/03/16 16:00 97.7 69 20 134/78 97 06/03/16 12:00 97.8 53 20 132/60 95 I/O 06/03/16 06/03/16 06/03/16 06/04/16 06/04/16 06/04/16 07:00 15:00 23:00 07:00 15:00 23:00 Intake Total 0 ml 600 ml 240 ml 480 ml Balance 0 ml 600 ml 240 ml 480 ml Intake Oral 0 ml 600 ml 240 ml 480 ml IV Total 0 ml # Voids 1 4 3 3 # Bowel Movements 2 2 0 (Gilbert Owen MD R2) Result Diagram: 06/04/1652706/04/16 05 Objective Remarks GENERAL: Well-nourished, well-developed AA female, sleeping on initial encounter. SKIN: Warm and dry. HEAD: Normocephalic. EYES: Conjunctival injection on left side. Scarring over cornea remains unchanged. Periocular areas are clean without crusting; eyes not actively draining. NECK: Supple, trachea midline. No JVD or lymphadenopathy. CARDIOVASCULAR: Regular rate and rhythm without murmurs, gallops, or rubs. RESPIRATORY: Breath sounds equal bilaterally. No accessory muscle use. GASTROINTESTINAL: Abdomen soft, non-tender, nondistended. EXTREMITIES: No cyanosis, or edema. NEUROLOGICAL: Awake, alert, and oriented x 3. Non-focal. (Gilbert Owen MD R2) A/P Assessment and Plan 60F with one-month history of persistent herpes simplex keratitis admitted from ophthalmology clinic (Dr. Lagos) for failed outpatient therapy and pain control. Discharge Planning Pending overall improvement and clearance from Dr. Lagos (ophthalmology) ( Gilbert Owen MD R2) Attending Attestation Patient examined and case discussed with resident physicians I have read the above note and agree with the assessment/plan is discussed with me I was involved in all medical decision making for this patient Patricio Bourne M.D. (Patricio Bourne MD) Problem List: (1) Herpes simplex keratitis of left eye Status: Acute Plan: Patient with previous admission May 26-2016 for herpes simplex keratitis of the left eye. 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 Treatment has been resistant over the last couple weeks. Due to worsening symptoms and continued pain today, was referred to the ED for re- admission. Ophthalmology consulted: Appreciate recommendations. I spoke with Dr. Lagos who will see the patient in the morning. She requests Acyclovir PO 800 mg TID, continue trifluridine topical q2-3hr. She also would like Zirgan (topical ganciclovir) to be substituted for trifluridine if available; it is not available in our pharmacy. She will not continue topical prednisolone at this time. HIV was negative. -Consider orbital or head CT if patient worsens clinically or has more severe symptoms despite pain control -Pain control with Pecocet and Toradol as needed Medications: * Acyclovir 800 mg 5x/day (has been taking 3/3-current) * Trifluridine q2h left eye (has been using 3/4-current) * Finished prednisolone topical solution to the left eye as outpatient (2) Hypertension Status: Acute Plan: BP 120s-150s/70s over last 24 hr. Was prescribed current home meds for the first time during previous hospital stay this month. -Continue home HCTZ 25mg daily -Continue home Amlodipine 5mg daily (3) COPD (chronic obstructive pulmonary disease) Status: Chronic Plan: Long history of smoking in conjunction with a history of asthma. She also reports a history of pleural effusion/edema for which she takes Lasix daily -Wean prednisone during hospital stay. Started at 9mg day. Now getting 2mg daily. Will continue 2mg daily this week and monitor, increase as needed. Goal is to wean off prior to discharge. - Breathing is nonlabored. RR 16-20 -Albuterol as needed -Nicotine patch high-dose (4) Fluids/Electrolytes/Nutrition/Prophylaxis Status: Acute Plan: Fluids: tolerating PO Electrolytes: monitor and replete as needed Nutrition: Regular diet DVT Prophylaxis: Lovenox 40mg subQ q24hr wdw Dr. Bourne. (Gilbert Owen MD R2) Gilbert Owen MD R2 Jun 04, 2016 09:28 Patricio Bourne MD Jun 04, 2016 12:58
[2016-06-04 12:04] VITALS: BP 131/64; PULSE 58; RESP 16; TEMP 98.3; O2SAT 97
--- NOTE | 2016-06-04 12:33 | HHI.PR ---
Subjective Remarks Pt doing well, pain well controlled, vision stable. Objective Vital Signs Date Time Temp Pulse Resp B/P Pulse Ox O2 Delivery O2 Flow Rate FiO2 06/04/16 08:06 97.7 58 16 118/60 95 06/04/16 04:00 97.2 62 18 121/68 99 06/04/16 00:00 98.1 69 18 132/76 98 06/03/16 20:00 97.8 80 18 133/72 97 06/03/16 16:00 97.7 69 20 134/78 97 I/O 06/03/16 06/03/16 06/03/16 06/04/16 06/04/16 06/04/16 07:00 15:00 23:00 07:00 15:00 23:00 Intake Total 0 ml 600 ml 240 ml 480 ml Balance 0 ml 600 ml 240 ml 480 ml Intake Oral 0 ml 600 ml 240 ml 480 ml IV Total 0 ml # Voids 1 4 3 3 # Bowel Movements 2 2 0 Result Diagram: 06/04/16 0528 06/04/16 0528 Objective Remarks Va OS 20/400 Cornea OS - no epi defect, diffuse edema Assessment and Plan Problem List: (1) Herpes simplex keratitis of left eye Status: Acute Plan: Epi defect healed. Decrease Trifluridine to q4h (Day 14), Acyclovir ( Day 15), start Pred Forte BID OS, pain control. Will follow. Griselda Lagos MD Jun 04, 2016 12:33
[2016-06-04 16:06] VITALS: BP 126/67; PULSE 68; RESP 16; TEMP 98.2; O2SAT 97
[2016-06-04] MEDS: ENOXAPARIN SODIUM 40 MG/0.4 ML SYRINGE SQ SCH (16:21)
[2016-06-04 20:07] VITALS: BP 133/73; PULSE 73; RESP 16; TEMP 97.6; O2SAT 97
[2016-06-04] MEDS: prednisoLONE ACETATE 1% OPHT SUSP 5 ML BTL LEFT EYE SCH (21:00)
[2016-06-04] MEDS: traMADol HCL 50 MG TAB PO PRN (21:27)
[2016-06-05 00:07] VITALS: BP 134/66; PULSE 64; RESP 16; TEMP 98.2; O2SAT 97
[2016-06-05] MEDS: TRIFLURIDINE 1% LEFT EYE SCH ×6 (03:34→23:24)
[2016-06-05 04:00] VITALS: BP 119/64; PULSE 65; RESP 16; TEMP 98.2; O2SAT 95
[2016-06-05] MEDS: ACYCLOVIR 800 MG TAB PO SCH ×5 (05:43→20:17)
[2016-06-05] MEDS: NICOTINE 21 MG/24 HR PATCH TD SCH (07:49)
[2016-06-05] MEDS: HYDROCHLOROTHIAZIDE 25 MG TAB PO SCH (07:50)
[2016-06-05] MEDS: predniSONE 1 MG TAB PO SCH (07:50)
[2016-06-05] MEDS: amLODIPine BESYLATE 5 MG TAB PO SCH (07:50)
[2016-06-05] MEDS: DOCUSATE SODIUM 100 MG CAP PO SCH (07:50)
[2016-06-05] MEDS: prednisoLONE ACETATE 1% OPHT SUSP 5 ML BTL LEFT EYE SCH ×2 (07:51→20:14)
[2016-06-05] MEDS: SODIUM CHLORIDE 0.9% FLUSH 5 ML FLUSH FLUSH SCH ×2 (07:51→20:17)
[2016-06-05] MEDS: FLUTICASONE PROPIONATE 50 MCG/ACT 16 GM NASAL SPRAY NASAL SCH (07:51)
[2016-06-05 08:00] VITALS: BP 124/58; PULSE 62; RESP 20; TEMP 98.1; O2SAT 99
--- NOTE | 2016-06-05 10:55 | HHI.FPPN ---
Subjective Remarks Patient was seen and examined this morning. She states she did not get much sleep last night due to her eye being irritated and a tension headache. These symptoms are both gone this morning, she used cold compresses over the eye overnight. She denies any issues with her cough or shortness of breath. Objective Vitals Vital Signs Date Time Temp Pulse Resp B/P Pulse Ox O2 Delivery O2 Flow Rate FiO2 06/05/16 04:00 98.2 65 16 119/64 95 06/05/16 00:07 98.2 64 16 134/66 97 06/04/16 20:07 97.6 73 16 133/73 97 06/04/16 16:06 98.2 68 16 126/67 97 06/04/16 12:04 98.3 58 16 131/64 97 I/O 06/04/16 06/04/16 06/04/16 06/05/16 06/05/16 06/05/16 07:00 15:00 23:00 07:00 15:00 23:00 Intake Total 480 ml 360 ml 282 ml 360 ml Balance 480 ml 360 ml 282 ml 360 ml Intake Oral 480 ml 360 ml 280 ml 360 ml IV Total 0 ml 2 ml # Voids 3 4 2 3 # Bowel Movements 0 3 0 1 Result Diagram: 06/04/1628 06/04/16527 Objective Remarks GENERAL: Well-nourished, well-developed AA female, sleeping on initial encounter. SKIN: Warm and dry. HEAD: Normocephalic. EYES: Conjunctival injection on left side. Scarring over cornea remains unchanged. Periocular areas are clean without crusting; eyes not actively draining. NECK: Supple, trachea midline. No JVD or lymphadenopathy. CARDIOVASCULAR: Regular rate and rhythm without murmurs, gallops, or rubs. RESPIRATORY: Breath sounds equal bilaterally. No accessory muscle use. GASTROINTESTINAL: Abdomen soft, non-tender, nondistended. EXTREMITIES: No cyanosis, or edema. NEUROLOGICAL: Awake, alert, and oriented x 3. Non-focal. Medications and IVs Inpatient Medications Acyclovir (Zovirax) 800 mg 5 TIMES A DAY PO Last administered on 06/05/16t 08: 01; Start 05/31/16 at 18:00 Albuterol Sulfate (Proair Hfa Inh) 2 puff Q4H PRN INH SHORTNESS OF BREATH; Start 05/31/16 at 15:00 Albuterol/ Ipratropium (Duoneb Neb) 1 ampule Q4HR NEB PRN NEB SOB/WHEEZING; Start 06/03/16 at 16:30 Amlodipine Besylate (Norvasc) 5 mg DAILY PO Last administered on 06/05/16 07: 50; Start 06/01/16 at 09:00 Cyclopentolate HCl (Cyclogyl 1% Opth Soln) 1 drop Q8HR EACH EYE Last administered on 05/31/16 22:58; Start 05/31/16 at 22:00; Stop 06/01/16 at 05:46 ; Status DC Diphenhydramine HCl (Benadryl Inj) 25 mg ONCE ONCE IV PUSH Last administered on 05/31/16 12:15; Start 05/31/16 at 11:30; Stop 05/31/16 at 11:31; Status DC Diphenhydramine HCl 25 mg 25 mg ONCE ONCE IV PUSH Last administered on 15:10; Start 05/31/16 at 15:00; Stop 05/31/16 at 15:03; Status DC Docusate Sodium (Colace) 300 mg DAILY PO Last administered on 06/05/16 07:50; Start 06/01/16 at 09:00 Enoxaparin Sodium (Lovenox Inj) 40 mg Q24H SQ Last administered on 06/04/16 16 :21; Start 05/31/16 at 16:00 Fluorescein Sodium (Zqhcv-I-Srwpny A.t.) 1 mg ONCE ONCE EACH EYE Last administered on 05/31/16 13:30; Start 05/31/16 at 11:15; Stop 05/31/16 at 11:16 ; Status DC Fluticasone Propionate (Flonase Ajay Spr) 2 spray DAILY NASAL Last administered on 06/05/16 07:51; Start 06/03/16 at 17:30 Hydrochlorothiazide (Hydrodiuril) 25 mg DAILY PO Last administered on 07:50; Start 06/01/16 at 09:00 Ibuprofen (Motrin) 600 mg Q6H PRN PO PAIN 3-5 Last administered on 06/04/16 08 :59; Start 05/31/16 at 15:15 IV Flush (NS Flush) 2 ml BID FLUSH Last administered on 06/05/16 07:51; Start 05/31/16 at 21:00 Miscellaneous Information 1 HS TD Last administered on 06/04/16 08:56; Start 06/01/16 at 21:00 Morphine Sulfate (Morphine Inj) 4 mg ONCE ONCE IM Last administered on 15:09; Start 05/31/16 at 15:00; Stop 05/31/16 at 15:03; Status DC Naloxone HCl (Narcan Inj) 0.4 mg UNSCH PRN IV SEE LABEL COMMENTS; Start at 15:15 Nicotine (Habitrol 21 Mg Patch.24 Hr) 1 patch DAILY TD Last administered on 07:49; Start 06/01/16 at 09:00 Ondansetron HCl (Zofran Inj) 4 mg Q6H PRN IVP NAUSEA OR VOMITING; Start at 15:15 Oxycodone/ Acetaminophen (Percocet 10-325 Mg) 1 tab Q6H PRN PO BREAKTHROUGH PAIN Last administered on 06/03/16 22:30; Start 05/31/16 at 21:45 Prednisolone Acetate (Pred Forte 1% Opth Susp) 1 drop BID LEFT EYE Last administered on 06/05/16 07:51; Start 06/04/16 at 21:00 Prednisone (Deltasone) 2 mg DAILY PO Last administered on 06/05/16 07:50; Start 06/03/16 at 09:00 Proparacaine HCl (Alcaine 0.5% Opht Soln) 1 drop ONCE ONCE EACH EYE Last administered on 05/31/16 12:35; Start 05/31/16 at 11:00; Stop 05/31/16 at 11:12 ; Status DC Sodium Chloride (NS 1000 ml Inj) 1,000 ml @ 110 mls/hr Q9H6M IV Last administered on 06/01/16 08:04; Start 05/31/16 at 15:08; Stop 06/01/16 at 09:44 ; Status DC Tramadol HCl (Ultram) 50 mg Q4H PRN PO pain 6-10 Last administered on 21:27; Start 05/31/16 at 19:45 Trifluridine (Viroptic 1% Opht Soln) 1 drop Q4HR LEFT EYE Last administered on 06/05/16t 07:50; Start 06/04/16 at 16:00 A/P Assessment and Plan 60F with one-month history of persistent herpes simplex keratitis admitted from ophthalmology clinic (Dr. Lagos) for failed outpatient therapy and pain control. Discharge Planning Possibly in 2-3 days. Pending overall improvement and clearance from Dr. Lagos ( ophthalmology) Problem List: (1) Herpes simplex keratitis of left eye Status: Acute Plan: Patient with previous admission May 26-2016 for herpes simplex keratitis of the left eye. 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 Treatment has been resistant over the last couple weeks. Due to worsening symptoms and continued pain today, was referred to the ED for re- admission. Ophthalmology consulted: Appreciate recommendations. I spoke with Dr. Lagos who will see the patient in the morning. She requests Acyclovir PO 800 mg TID, continue trifluridine topical q2-3hr. HIV was negative. -Consider orbital or head CT if patient worsens clinically or has more severe symptoms despite pain control -Pain control with Ultram and Ibuprofen as needed Medications: * Acyclovir 800 mg 5x/day (has been taking 3/3-current) * Trifluridine q2h left eye (has been using 3/4-current) * Prednisolone 1% topical started 06/04 (2) Hypertension Status: Acute Plan: BP 110s-130s/60s-70s over last 24 hr. Was prescribed current home meds for the first time during previous hospital stay this month. -Continue home HCTZ 25mg daily -Continue home Amlodipine 5mg daily (3) COPD (chronic obstructive pulmonary disease) Status: Chronic Plan: Long history of smoking in conjunction with a history of asthma. She also reports a history of pleural effusion/edema for which she takes Lasix daily - Wean prednisone during hospital stay. Started at 9mg day. Now getting 2mg daily. Will continue 2mg daily this week and monitor, increase as needed. Goal is to wean off prior to discharge. - Breathing is nonlabored. - Albuterol as needed - CXR unremarkable - Nicotine patch high-dose (4) Fluids/Electrolytes/Nutrition/Prophylaxis Status: Acute Plan: Fluids: tolerating PO Electrolytes: monitor and replete as needed Nutrition: Regular diet DVT Prophylaxis: Lovenox 40mg subQ q24hr wdw Dr. Bourne. Debbie Gross MD R1 Jun 05, 2016 10:55
[2016-06-05 12:00] VITALS: BP 97/65; PULSE 64; RESP 18; TEMP 97.8; O2SAT 96
[2016-06-05] MEDS ORDERED: KETOROLAC TROMETHAMINE 10 MG TAB PO PRN (13:00)
[2016-06-05 16:00] VITALS: BP 117/62; PULSE 71; RESP 18; TEMP 97.9; O2SAT 100
[2016-06-05] MEDS: ENOXAPARIN SODIUM 40 MG/0.4 ML SYRINGE SQ SCH (16:48)
[2016-06-05] MEDS ORDERED: hydrOXYzine HCL 50 MG TAB PO PRN (17:45)
[2016-06-05 20:00] VITALS: BP 143/64; PULSE 98; RESP 18; TEMP 98.2; O2SAT 100
[2016-06-05] MEDS: REMOVE OLD NICODERM (NICOTINE) PATCH TD SCH (20:17)
[2016-06-05] MEDS: hydrOXYzine HCL 25 MG TAB PO PRN (20:18)
[2016-06-06] VITALS: BP 133/94; PULSE 97; RESP 18; TEMP 98.6; O2SAT 96
[2016-06-06] MEDS: TRIFLURIDINE 1% LEFT EYE SCH ×6 (03:25→23:18)
[2016-06-06 04:00] VITALS: BP 115/66; PULSE 74; RESP 18; TEMP 97.6; O2SAT 96
[2016-06-06] MEDS: ACYCLOVIR 800 MG TAB PO SCH ×5 (04:54→21:28)
[2016-06-06 08:00] VITALS: BP 140/73; PULSE 74; RESP 16; TEMP 98.2; O2SAT 98
[2016-06-06] MEDS: NICOTINE 21 MG/24 HR PATCH TD SCH (08:25)
[2016-06-06] MEDS: DOCUSATE SODIUM 100 MG CAP PO SCH (08:26)
[2016-06-06] MEDS: HYDROCHLOROTHIAZIDE 25 MG TAB PO SCH (08:26)
[2016-06-06] MEDS: amLODIPine BESYLATE 5 MG TAB PO SCH (08:26)
[2016-06-06] MEDS: predniSONE 1 MG TAB PO SCH (08:26)
[2016-06-06] MEDS: SODIUM CHLORIDE 0.9% FLUSH 5 ML FLUSH FLUSH SCH ×2 (08:27→19:52)
[2016-06-06] MEDS: prednisoLONE ACETATE 1% OPHT SUSP 5 ML BTL LEFT EYE SCH ×2 (08:27→19:54)
[2016-06-06] MEDS: FLUTICASONE PROPIONATE 50 MCG/ACT 16 GM NASAL SPRAY NASAL SCH (08:27)
--- NOTE | 2016-06-06 08:58 | HHI.FPPN ---
Subjective Remarks Difficulty with sleep. Eye pain controlled. Found out that her grandson's mother and this was hard for her. She says hydroxyzine worked well last night for sleep. Still dec vision in left eye, but no acute changes. Objective Vitals Vital Signs Date Time Temp Pulse Resp B/P Pulse Ox O2 Delivery O2 Flow Rate FiO2 06/06/16 08:00 98.2 74 16 140/73 98 06/06/16 04:00 97.6 74 18 115/66 96 06/06/16 00:00 98.6 97 18 133/94 96 06/05/16 20:00 98.2 98 18 143/64 100 06/05/16 16:00 97.9 71 18 117/62 100 06/05/16 12:00 97.8 64 18 97/65 96 I/O 06/05/16 06/05/16 06/05/16 06/06/16 06/06/16 06/06/16 07:00 15:00 23:00 07:00 15:00 23:00 Intake Total 360 ml 1000 ml 480 ml 240 ml Balance 360 ml 1000 ml 480 ml 240 ml Intake Oral 360 ml 1000 ml 480 ml 240 ml # Voids 3 3 2 2 # Bowel Movements 1 1 0 0 Result Diagram: 06/04/1652706/04/16527 Objective Remarks GENERAL: Well-nourished, well-developed AA female, sleeping on initial encounter. SKIN: Warm and dry. HEAD: Normocephalic. EYES: Conjunctival injection on left side. Scarring over cornea remains unchanged. Periocular areas are clean without crusting; eyes not actively draining. NECK: Supple, trachea midline. No JVD or lymphadenopathy. CARDIOVASCULAR: Regular rate and rhythm without murmurs, gallops, or rubs. RESPIRATORY: Breath sounds equal bilaterally. No accessory muscle use. GASTROINTESTINAL: Abdomen soft, non-tender, nondistended. EXTREMITIES: No cyanosis, or edema. NEUROLOGICAL: Awake, alert, and oriented x 3. Non-focal. A/P Assessment and Plan 60F with one-month history of persistent herpes simplex keratitis admitted from ophthalmology clinic (Dr. Lagos) for failed outpatient therapy and pain control. Discharge Planning Possibly in 2-3 days. Pending overall improvement and clearance from Dr. Lagos ( ophthalmology) Problem List: (1) Herpes simplex keratitis of left eye Status: Acute Plan: Patient with previous admission May 26-2016 for herpes simplex keratitis of the left eye. 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 Treatment has been resistant over the last couple weeks. Due to worsening symptoms and continued pain today, was referred to the ED for re- admission. Ophthalmology consulted: Appreciate recommendations. I spoke with Dr. Lagos who will see the patient in the morning. She requests Acyclovir PO 800 mg TID, continue trifluridine topical q2-3hr. HIV was negative. -Consider orbital or head CT if patient worsens clinically or has more severe symptoms despite pain control -Pain control with Ultram and Ibuprofen as needed Medications: * Acyclovir 800 mg 5x/day (has been taking 3/3-current) * Trifluridine q2h left eye (has been using 3/4-current) * Prednisolone 1% topical started 06/04 (2) Hypertension Status: Acute Plan: BP 110s-130s/60s-70s over last 24 hr. Was prescribed current home meds for the first time during previous hospital stay this month. -Continue home HCTZ 25mg daily -Continue home Amlodipine 5mg daily (3) COPD (chronic obstructive pulmonary disease) Status: Chronic Plan: Long history of smoking in conjunction with a history of asthma. She also reports a history of pleural effusion/edema for which she takes Lasix daily - Wean prednisone during hospital stay. Started at 9mg day. Now getting 2mg daily. Will continue 2mg daily this week and monitor, increase as needed. Goal is to wean off prior to discharge. - Breathing is nonlabored. - Albuterol as needed - CXR unremarkable - Nicotine patch high-dose (4) Fluids/Electrolytes/Nutrition/Prophylaxis Status: Acute Plan: Fluids: tolerating PO Electrolytes: monitor and replete as needed Nutrition: Regular diet DVT Prophylaxis: Lovenox 40mg subQ q24hr wdw Dr. Bourne. Gilbert Owen MD R2 Jun 06, 2016 08:58
[2016-06-06] MEDS: traMADol HCL 50 MG TAB PO PRN ×2 (11:21→21:28)
[2016-06-06 12:00] VITALS: BP 122/72; PULSE 75; RESP 16; TEMP 98.1; O2SAT 95
[2016-06-06 16:00] VITALS: BP 117/61; PULSE 69; RESP 16; TEMP 98.8; O2SAT 95
[2016-06-06] MEDS: ENOXAPARIN SODIUM 40 MG/0.4 ML SYRINGE SQ SCH (16:39)
[2016-06-06 20:00] VITALS: BP 129/68; PULSE 77; RESP 16; TEMP 98; O2SAT 97
[2016-06-06] MEDS: REMOVE OLD NICODERM (NICOTINE) PATCH TD SCH (21:00)
[2016-06-06] MEDS: hydrOXYzine HCL 25 MG TAB PO PRN (21:28)
[2016-06-07] VITALS: BP 129/63; PULSE 78; RESP 16; TEMP 98; O2SAT 95
[2016-06-07] MEDS: TRIFLURIDINE 1% LEFT EYE SCH ×5 (03:17→20:48)
[2016-06-07 04:00] VITALS: BP 106/60; PULSE 71; RESP 18; TEMP 98.2; O2SAT 95
[2016-06-07] MEDS: ACYCLOVIR 800 MG TAB PO SCH ×5 (05:00→20:49)
[2016-06-07 08:00] VITALS: BP 112/62; PULSE 75; RESP 20; TEMP 98.4; O2SAT 100
[2016-06-07] MEDS: FLUTICASONE PROPIONATE 50 MCG/ACT 16 GM NASAL SPRAY NASAL SCH (09:00)
[2016-06-07] MEDS: prednisoLONE ACETATE 1% OPHT SUSP 5 ML BTL LEFT EYE SCH ×2 (09:00→20:48)
[2016-06-07] MEDS: SODIUM CHLORIDE 0.9% FLUSH 5 ML FLUSH FLUSH SCH ×2 (09:00→20:48)
[2016-06-07] MEDS: HYDROCHLOROTHIAZIDE 25 MG TAB PO SCH (09:22)
[2016-06-07] MEDS: DOCUSATE SODIUM 100 MG CAP PO SCH (09:22)
[2016-06-07] MEDS: predniSONE 1 MG TAB PO SCH (09:22)
[2016-06-07] MEDS: REMOVE OLD NICODERM (NICOTINE) PATCH TD SCH (09:23)
[2016-06-07] MEDS: amLODIPine BESYLATE 5 MG TAB PO SCH (09:23)
[2016-06-07] MEDS: NICOTINE 21 MG/24 HR PATCH TD SCH (09:23)
--- NOTE | 2016-06-07 09:43 | HHI.FPPN ---
Subjective Remarks Patient feels well this morning. She notes that her eye feels much better. She slept well. She knows that she can see images on the TV from her bed. She does not have any pain in the eye or other symptoms this morning. She had little sad due to a loss in the family but notes that she feels comfortable to go home soon. She denies any cough, fever, chills, nausea, vomiting, abdominal pain. She notes no GI or urinary symptoms. (Debbie Gross MD R1) Objective Vitals Vital Signs Date Time Temp Pulse Resp B/P Pulse Ox O2 Delivery O2 Flow Rate FiO2 06/07/16 04:00 98.2 71 18 106/60 95 06/07/16 00:00 98.0 78 16 129/63 95 06/06/16 22:17 18 06/06/16 20:00 98.0 77 16 129/68 97 06/06/16 16:00 98.8 69 16 117/61 95 06/06/16 12:00 98.1 75 16 122/72 95 I/O 06/06/16 06/06/16 06/06/16 06/07/16 06/07/16 06/07/16 06:59 14:59 22:59 06:59 14:59 22:59 Intake Total 240 ml 840 ml 240 ml Balance 240 ml 840 ml 240 ml Intake Oral 240 ml 840 ml 240 ml # Voids 2 2 2 # Bowel Movements 0 2 1 (Debbie Gross MD R1) Result Diagram: 06/04/1652706/04/16527 Objective Remarks GENERAL: Well-nourished, well-developed AA female walking around the room without difficulty. SKIN: Warm and dry. No rashes or bruises. HEAD: Normocephalic. EYES: Conjunctival injection on left side, improving. Scarring over cornea seems to have improved. No drainage of the eyes. Vision card is read without difficulty with the right eye, large letters are visible to the left eye at close distance. Periocular areas are clean without crusting; eyes not actively draining. NECK: Supple, trachea midline. No JVD or lymphadenopathy. CARDIOVASCULAR: Regular rate and rhythm without murmurs, gallops, or rubs. RESPIRATORY: Breath sounds equal bilaterally. No accessory muscle use. GASTROINTESTINAL: Abdomen soft, non-tender, nondistended. EXTREMITIES: No cyanosis, or edema. NEUROLOGICAL: Awake, alert, and oriented x 3. Non-focal. Medications and IVs Inpatient Medications Acyclovir (Zovirax) 800 mg 5 TIMES A DAY PO Last administered on 06/07/16 09: 26; Start 05/31/16 at 18:00 Albuterol Sulfate (Proair Hfa Inh) 2 puff Q4H PRN INH SHORTNESS OF BREATH; Start 05/31/16 at 15:00 Albuterol/ Ipratropium (Duoneb Neb) 1 ampule Q4HR NEB PRN NEB SOB/WHEEZING; Start 06/03/16 at 16:30 Amlodipine Besylate (Norvasc) 5 mg DAILY PO Last administered on 06/07/16 09: 23; Start 06/01/16 at 09:00 Cyclopentolate HCl (Cyclogyl 1% Opt Soln) 1 drop Q8HR EACH EYE Last administered on 05/31/16 22:58; Start 05/31/16 at 22:00; Stop 06/01/16 at 05:46 ; Status DC Diphenhydramine HCl (Benadryl Inj) 25 mg ONCE ONCE IV PUSH Last administered on 05/31/16 12:15; Start 05/31/16 at 11:30; Stop 05/31/16 at 11:31; Status DC Diphenhydramine HCl 25 mg 25 mg ONCE ONCE IV PUSH Last administered on 15:10; Start 05/31/16 at 15:00; Stop 05/31/16 at 15:03; Status DC Docusate Sodium (Colace) 300 mg DAILY PO Last administered on 06/07/16 09:22; Start 06/01/16 at 09:00 Enoxaparin Sodium (Lovenox Inj) 40 mg Q24H SQ Last administered on 06/06/16 16 :39; Start 05/31/16 at 16:00 Fluorescein Sodium (Qesjj-O-Feugrc A.t.) 1 mg ONCE ONCE EACH EYE Last administered on 05/31/16 13:30; Start 05/31/16 at 11:15; Stop 05/31/16 at 11:16 ; Status DC Fluticasone Propionate (Flonase Ajay Spr) 2 spray DAILY NASAL Last administered on 06/07/16 09:00; Start 06/03/16 at 17:30 Hydrochlorothiazide (Hydrodiuril) 25 mg DAILY PO Last administered on 09:22; Start 06/01/16 at 09:00 Hydroxyzine HCl (Atarax) 25 mg HS PRN PO INSOMNIA Last administered on 21:28; Start 06/05/16 at 21:00 Ibuprofen (Motrin) 600 mg Q6H PRN PO PAIN 3-5 Last administered on 06/04/16 08 :59; Start 05/31/16 at 15:15; Stop 06/05/16 at 12:57; Status DC IV Flush (NS Flush) 2 ml BID FLUSH Last administered on 06/06/16 19:52; Start 05/31/16 at 21:00 Ketorolac Tromethamine (Toradol) 10 mg Q6H PRN PO PAIN 4-7; Start 06/05/16 at 13:00; Stop 06/10/16 at 12:59 Miscellaneous Information 1 HS TD Last administered on 06/07/16 09:23; Start 06/01/16 at 21:00 Morphine Sulfate (Morphine Inj) 4 mg ONCE ONCE IM Last administered on 15:09; Start 05/31/16 at 15:00; Stop 05/31/16 at 15:03; Status DC Naloxone HCl (Narcan Inj) 0.4 mg UNSCH PRN IV SEE LABEL COMMENTS; Start at 15:15 Nicotine (Habitrol 21 Mg Patch.24 Hr) 1 patch DAILY TD Last administered on 09:23; Start 06/01/16 at 09:00 Ondansetron HCl (Zofran Inj) 4 mg Q6H PRN IVP NAUSEA OR VOMITING; Start at 15:15 Oxycodone/ Acetaminophen (Percocet 10-325 Mg) 1 tab Q6H PRN PO BREAKTHROUGH PAIN Last administered on 06/03/16 22:30; Start 05/31/16 at 21:45; Stop at 10:51; Status DC Prednisolone Acetate (Pred Forte 1% Opth Susp) 1 drop BID LEFT EYE Last administered on 06/07/16 09:00; Start 06/04/16 at 21:00 Prednisone (Deltasone) 2 mg DAILY PO Last administered on 06/07/16 09:22; Start 06/03/16 at 09:00 Proparacaine HCl (Alcaine 0.5% Opht Soln) 1 drop ONCE ONCE EACH EYE Last administered on 05/31/16 12:35; Start 05/31/16 at 11:00; Stop 05/31/16 at 11:12 ; Status DC Sodium Chloride (NS 1000 ml Inj) 1,000 ml @ 110 mls/hr Q9H6M IV Last administered on 06/01/16 08:04; Start 05/31/16 at 15:08; Stop 06/01/16 at 09:44 ; Status DC Tramadol HCl (Ultram) 50 mg Q4H PRN PO PAIN 8-10 Last administered on 21:28; Start 05/31/16 at 19:45 Trifluridine (Viroptic 1% Opht Soln) 1 drop Q4HR LEFT EYE Last administered on 06/07/16 08:00; Start 06/04/16 at 16:00 (Debbie Gross MD R1) Urinary Catheter: No (Debbie Gross MD R1) Vascular Central Line Catheter: No (Debbie Gross MD R1) A/P Assessment and Plan 60F with one-month history of persistent herpes simplex keratitis admitted from ophthalmology clinic (Dr. Lagos) for failed outpatient therapy and pain control. Discharge Planning Possibly in 12 days. Pending overall improvement and clearance from Dr. Lagos ( ophthalmology) (Debbie Gross MD R1) Attending Attestation Pt. examined and case discussed with resident physician I have read the above note and agree with the assessment/plan as discussed with me I was involved in all medical decision making for this patient Patricio Bourne MD (Patricio Bourne MD) Problem List: (1) Herpes simplex keratitis of left eye Status: Acute Plan: Patient with previous admission May 26-2016 for herpes simplex keratitis of the left eye. 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 Treatment has been resistant over the last couple weeks. Due to worsening symptoms and continued pain today, was referred to the ED for re- admission. Ophthalmology consulted: Appreciate recommendations. She is currently continuing regimen as documented below HIV was negative. -Consider orbital or head CT if patient worsens clinically or has more severe symptoms despite pain control -Pain control with Ultram and Ibuprofen as needed, not requiring much pain medication at this time Medication regimen: * Acyclovir 800 mg 5x/day (has been taking 3-current) * Trifluridine q2h left eye (has been using 05/22-06/04) spaced out to q4h on 06/04 * Prednisolone 1% topical started 06/04 (2) Hypertension Status: Acute Plan: EP well controlled. Was prescribed current home meds for the first time during previous hospital stay this month. -Continue home HCTZ 25mg daily -Continue home Amlodipine 5mg daily (3) COPD (chronic obstructive pulmonary disease) Status: Chronic Plan: Long history of smoking in conjunction with a history of asthma. She also reports a history of pleural effusion/edema for which she takes Lasix daily - Wean prednisone during hospital stay. Started at 9mg day. Now getting 2mg daily. Will continue 2mg daily and monitor. Goal is to wean off prior to discharge. - Clinical exam unremarkable - Albuterol as needed - not requiring - CXR 06/03 unremarkable - Nicotine patch high-dose, counseled on smoking cessation (4) Fluids/Electrolytes/Nutrition/Prophylaxis Status: Acute Plan: Fluids: tolerating PO Electrolytes: monitor and replete as needed Nutrition: Regular diet DVT Prophylaxis: Lovenox 40mg subQ q24hr wdw Dr. Bourne. (Debbie Gross MD R1) Debbie Gross MD R1 Jun 07, 2016 09:43 Patricio Bourne MD Jun 07, 2016 18:06
--- NOTE | 2016-06-07 11:13 | HHI.DCPOC ---
Discharge Care Plan Diagnosis: (1) Herpes simplex keratitis of left eye (2) Hypertension (3) Tobacco abuse Goals to Promote Your Health * To prevent worsening of your condition and complications * To maintain your health at the optimal level Directions to Meet Your Goals Take your medications as prescribed Follow your dietary instruction Follow activity as directed Keep your appointments as scheduled Take your immunizations and boosters as scheduled If your symptoms worsen call your PCP, if no PCP go to Urgent Care Center or Emergency Room Smoking is Dangerous to Your Health. Avoid second hand smoke Call the 24-hour hour crisis hotline for domestic abuse at Debbie Gross MD R1 Jun 07, 2016 11:13
[2016-06-07 12:00] VITALS: BP 116/58; PULSE 81; RESP 20; TEMP 97.7; O2SAT 96
[2016-06-07] MEDS ORDERED: HYDR25TA5 PO (14:32)
[2016-06-07] MEDS ORDERED: AMLO5 PO (14:32)
[2016-06-07] MEDS ORDERED: DOCU100C PO (14:32)
[2016-06-07] MEDS ORDERED: TRIF1SOL3 LEFT EYE (14:32)
[2016-06-07] MEDS ORDERED: ULTR50TA5 PO (14:32)
[2016-06-07] MEDS ORDERED: PRED1SUS6 LEFT EYE (14:32)
[2016-06-07 16:00] VITALS: BP 121/71; PULSE 77; RESP 20; TEMP 98.8; O2SAT 95
[2016-06-07] MEDS: ENOXAPARIN SODIUM 40 MG/0.4 ML SYRINGE SQ SCH (16:00)
[2016-06-07] MEDS: traMADol HCL 50 MG TAB PO PRN (16:03)
[2016-06-07 20:00] VITALS: BP 136/71; PULSE 73; RESP 16; TEMP 97.7; O2SAT 99
--- NOTE | 2016-06-07 22:47 | HHI.PR ---
Subjective Remarks Pt doing well, pain well controlled, vision stable. Objective Vital Signs Date Time Temp Pulse Resp B/P Pulse Ox O2 Delivery O2 Flow Rate FiO2 06/07/16 20:00 97.7 73 16 136/71 99 06/07/16 16:00 98.8 77 20 121/71 95 06/07/16 12:00 97.7 81 20 116/58 96 06/07/16 08:00 98.4 75 20 112/62 100 06/07/16 04:00 98.2 71 18 106/60 95 06/07/16 00:00 98.0 78 16 129/63 95 I/O 06/06/16 06/06/16 06/06/16 06/07/16 06/07/16 06/07/16 07:00 15:00 23:00 07:00 15:00 23:00 Intake Total 240 ml 840 ml 240 ml 720 ml Balance 240 ml 840 ml 240 ml 720 ml Intake Oral 240 ml 840 ml 240 ml 720 ml # Voids 2 2 2 3 # Bowel Movements 0 2 1 1 Result Diagram: 06/04/16 0528 06/04/16527 Objective Remarks Va OS 20/400 Cornea OS - no epi defect, diffuse edema Assessment and Plan Problem List: (1) Herpes simplex keratitis of left eye Status: Acute Plan: Epi defect healed. Decrease Trifluridine to QID (Day 17), Acyclovir ( Day 18), increase Pred Forte to QID OS. Possible discharge by Friday 06/09. Griselda Lagos MD Jun 07, 2016 22:47
[2016-06-07] MEDS: hydrOXYzine HCL 25 MG TAB PO PRN (22:55)
[2016-06-08] VITALS: BP 118/59; PULSE 87; RESP 18; TEMP 98.2; O2SAT 97
[2016-06-08 04:00] VITALS: BP 113/57; PULSE 67; RESP 16; TEMP 98.6; O2SAT 94
[2016-06-08] MEDS: ACYCLOVIR 800 MG TAB PO SCH ×5 (05:53→22:05)
[2016-06-08 08:07] VITALS: BP 111/62; PULSE 66; RESP 16; TEMP 97.4; O2SAT 97
[2016-06-08] MEDS ORDERED: TRIF1SOL3 LEFT EYE (08:22)
[2016-06-08] MEDS ORDERED: PRED1SUS6 LEFT EYE (08:22)
[2016-06-08] MEDS ORDERED: ACYC800T PO (08:22)
[2016-06-08] MEDS: TRIFLURIDINE 1% LEFT EYE SCH ×4 (08:39→21:58)
--- NOTE | 2016-06-08 08:39 | HHI.FPPN ---
Subjective Remarks Doing well today. Some mild eye pain, relieved with tramadol. No CP or SOB. Vision is improving. Under the impression for d/c tomorrow with next day follow up with Dr. Lagos. Requesting eye gtt prior to d/c 04/22 to financial difficulties. (Gilbert Owen MD R2) Objective Vitals Vital Signs Date Time Temp Pulse Resp B/P Pulse Ox O2 Delivery O2 Flow Rate FiO2 06/08/16 04:00 98.6 67 16 113/57 94 06/08/16 00:00 98.2 87 18 118/59 97 06/07/16 20:00 97.7 73 16 136/71 99 06/07/16 16:00 98.8 77 20 121/71 95 06/07/16 12:00 97.7 81 20 116/58 96 I/O 06/07/16 06/07/16 06/07/16 06/08/16 06/08/16 06/08/16 07:00 15:00 23:00 07:00 15:00 23:00 Intake Total 960 ml 480 ml Balance 960 ml 480 ml Intake Oral 960 ml 480 ml # Voids 6 2 # Bowel Movements 1 1 (Gilbert Owen MD R2) Result Diagram: 06/04/1652706/04/16527 Objective Remarks GENERAL: Well-nourished, well-developed AA female walking around the room without difficulty. SKIN: Warm and dry. No rashes or bruises. HEAD: Normocephalic. EYES: Conjunctival injection on left side, improving. Scarring over cornea seems to have improved. No drainage of the eyes. Vision card is read without difficulty with the right eye, large letters are visible to the left eye at close distance. Periocular areas are clean without crusting; eyes not actively draining. NECK: Supple, trachea midline. No JVD or lymphadenopathy. CARDIOVASCULAR: Regular rate and rhythm without murmurs, gallops, or rubs. RESPIRATORY: Breath sounds equal bilaterally. No accessory muscle use. GASTROINTESTINAL: Abdomen soft, non-tender, nondistended. EXTREMITIES: No cyanosis, or edema. NEUROLOGICAL: Awake, alert, and oriented x 3. Non-focal. (Gilbert Owen MD R2) A/P Assessment and Plan 60F with one-month history of persistent herpes simplex keratitis admitted from ophthalmology clinic (Dr. Lagos) for failed outpatient therapy and pain control. Discharge Planning 06/09/2016as recommended by Dr. Lagos (ophthalmology). Will need next day f/ u. (Gilbert Owen MD R2) Attending Attestation Patient examined and case discussed with resident physicians I have read the above agree with the assessment/plan is discussed with me I was involved in all medical decision making for this patient Patricio Bourne M.D. (Patricio Bourne MD) Problem List: (1) Herpes simplex keratitis of left eye Status: Acute Plan: Patient with previous admission May 26-2016 for herpes simplex keratitis of the left eye. 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 Lagos, solar system installer. Treatment has been resistant over the last couple weeks. Due to worsening symptoms and continued pain today, was referred to the ED for re- admission. Ophthalmology consulted: Appreciate recommendations. She is currently continuing regimen as documented below HIV was negative. -Consider orbital or head CT if patient worsens clinically or has more severe symptoms despite pain control -Pain control with Ultram and Ibuprofen as needed, not requiring much pain medication at this time Medication regimen: * Acyclovir 800 mg 5x/day (has been taking 05/21-current) * Trifluridine QID left eye (has been using 05/22-06/04) spaced out to q4h on 06/04 * Prednisolone 1% topical started 06/04 QID (2) Hypertension Status: Acute Plan: EP well controlled. Was prescribed current home meds for the first time during previous hospital stay this month. -Continue home HCTZ 25mg daily -Continue home Amlodipine 5mg daily (3) COPD (chronic obstructive pulmonary disease) Status: Chronic Plan: Long history of smoking in conjunction with a history of asthma. She also reports a history of pleural effusion/edema for which she takes Lasix daily - Wean prednisone during hospital stay. Started at 9mg day. Now getting 2mg daily. Will continue 2mg daily and monitor. Goal is to wean off prior to discharge. - Clinical exam unremarkable - Albuterol as needed - not requiring - CXR 06/03 unremarkable - Nicotine patch high-dose, counseled on smoking cessation (4) Fluids/Electrolytes/Nutrition/Prophylaxis Status: Acute Plan: Fluids: tolerating PO Electrolytes: monitor and replete as needed Nutrition: Regular diet DVT Prophylaxis: Lovenox 40mg subQ q24hr wdw Dr. Bourne. (Gilbert Owen MD R2) Gilbert Owen MD R2 Jun 08, 2016 08:38 Patricio Bourne MD Jun 08, 2016 09:47
[2016-06-08] MEDS: SODIUM CHLORIDE 0.9% FLUSH 5 ML FLUSH FLUSH SCH ×2 (08:40→21:00)
[2016-06-08] MEDS: DOCUSATE SODIUM 100 MG CAP PO SCH (08:40)
[2016-06-08] MEDS: prednisoLONE ACETATE 1% OPHT SUSP 5 ML BTL LEFT EYE SCH ×4 (08:40→21:56)
[2016-06-08] MEDS: HYDROCHLOROTHIAZIDE 25 MG TAB PO SCH (08:40)
[2016-06-08] MEDS: FLUTICASONE PROPIONATE 50 MCG/ACT 16 GM NASAL SPRAY NASAL SCH (08:40)
[2016-06-08] MEDS: amLODIPine BESYLATE 5 MG TAB PO SCH (08:40)
[2016-06-08] MEDS: NICOTINE 21 MG/24 HR PATCH TD SCH (08:41)
[2016-06-08] MEDS: traMADol HCL 50 MG TAB PO PRN ×3 (08:41→21:59)
[2016-06-08 11:48] VITALS: BP 106/71; PULSE 70; RESP 16; TEMP 98.1; O2SAT 97
[2016-06-08 17:03] VITALS: BP 117/59; PULSE 67; RESP 17; TEMP 97.3; O2SAT 97
[2016-06-08] MEDS: ENOXAPARIN SODIUM 40 MG/0.4 ML SYRINGE SQ SCH (17:34)
--- NOTE | 2016-06-08 19:52 | HHI.PR ---
Subjective Remarks Pt doing well, pain well controlled, vision stable. Objective Vital Signs Date Time Temp Pulse Resp B/P Pulse Ox O2 Delivery O2 Flow Rate FiO2 06/08/16 17:03 97.3 67 17 117/59 97 06/08/16 11:48 98.1 70 16 106/71 97 06/08/16 08:07 97.4 66 16 111/62 97 06/08/16 04:00 98.6 67 16 113/57 94 06/08/16 00:00 98.2 87 18 118/59 97 06/07/16 20:00 97.7 73 16 136/71 99 I/O 06/07/16 06/07/16 06/07/16 06/08/16 06/08/16 06/08/16 07:00 15:00 23:00 07:00 15:00 23:00 Intake Total 960 ml 480 ml 1440 ml Balance 960 ml 480 ml 1440 ml Intake Oral 960 ml 480 ml 1440 ml IV Total 0 ml # Voids 6 2 5 # Bowel Movements 1 1 Result Diagram: 06/04/16 0528 06/04/16527 Objective Remarks Va OS 20/400 Cornea OS - no epi defect, diffuse edema Assessment and Plan Problem List: (1) Herpes simplex keratitis of left eye Status: Acute Plan: Epi defect healed. Pain well controlled. Ok to discharge patient tomorrow. Continue Trifluridine QID OS (Day 18), Acyclovir 800 mg 5x/day (Day 19 ), Pred Forte QID OS, Tramadol prn. Patient to followup 06/10 at 10am as outpatient. Griselda Lagos MD Jun 08, 2016 19:52
[2016-06-08 20:00] VITALS: BP 110/61; PULSE 76; RESP 18; TEMP 98.3; O2SAT 95
[2016-06-08] MEDS: REMOVE OLD NICODERM (NICOTINE) PATCH TD SCH (21:00)
[2016-06-08] MEDS: hydrOXYzine HCL 25 MG TAB PO PRN (21:59)
[2016-06-09] VITALS: BP 109/65; PULSE 77; RESP 16; TEMP 98.5; O2SAT 97
[2016-06-09 04:00] VITALS: BP 101/5; PULSE 80; RESP 18; TEMP 98.3; O2SAT 98
[2016-06-09] MEDS: ACYCLOVIR 800 MG TAB PO SCH ×2 (06:36→09:08)
[2016-06-09 08:02] VITALS: BP 114/55; PULSE 81; RESP 20; TEMP 97.6; O2SAT 94
[2016-06-09] MEDS: SODIUM CHLORIDE 0.9% FLUSH 5 ML FLUSH FLUSH SCH (09:00)
[2016-06-09] MEDS: HYDROCHLOROTHIAZIDE 25 MG TAB PO SCH (09:08)
[2016-06-09] MEDS: amLODIPine BESYLATE 5 MG TAB PO SCH (09:08)
[2016-06-09] MEDS: FLUTICASONE PROPIONATE 50 MCG/ACT 16 GM NASAL SPRAY NASAL SCH (09:08)
[2016-06-09] MEDS: NICOTINE 21 MG/24 HR PATCH TD SCH (09:08)
[2016-06-09] MEDS: DOCUSATE SODIUM 100 MG CAP PO SCH (09:10)
[2016-06-09] MEDS: prednisoLONE ACETATE 1% OPHT SUSP 5 ML BTL LEFT EYE SCH (09:13)
[2016-06-09] MEDS: TRIFLURIDINE 1% LEFT EYE SCH (09:13)
[2016-06-09] MEDS: traMADol HCL 50 MG TAB PO PRN (09:47)
--- NOTE | 2016-06-09 12:15 | HHI.FPPN ---
Subjective Remarks Doing well no concerns. some MOORE overnight. (Gilbert Owen MD R2) Objective Vitals Vital Signs Date Time Temp Pulse Resp B/P Pulse Ox O2 Delivery O2 Flow Rate FiO2 06/09/16 08:02 97.6 81 20 114/55 94 06/09/16 04:00 98.3 80 18 101/5 98 06/09/16 00:00 98.5 77 16 109/65 97 06/08/16 20:00 98.3 76 18 110/61 95 06/08/16 17:03 97.3 67 17 117/59 97 I/O 06/08/16 06/08/16 06/08/16 06/09/16 06/09/16 06/09/16 07:00 15:00 23:00 07:00 15:00 23:00 Intake Total 480 ml 1440 ml 360 ml 540 ml Balance 480 ml 1440 ml 360 ml 540 ml Intake Oral 480 ml 1440 ml 360 ml 540 ml IV Total 0 ml # Voids 2 5 1 3 # Bowel Movements 1 1 (Gilbert Owen MD R2) Objective Remarks GENERAL: Well-nourished, well-developed AA female walking around the room without difficulty. SKIN: Warm and dry. No rashes or bruises. HEAD: Normocephalic. EYES: Conjunctival injection on left side, improving. Scarring over cornea seems to have improved. No drainage of the eyes. Vision card is read without difficulty with the right eye, large letters are visible to the left eye at close distance. Periocular areas are clean without crusting; eyes not actively draining. NECK: Supple, trachea midline. No JVD or lymphadenopathy. CARDIOVASCULAR: Regular rate and rhythm without murmurs, gallops, or rubs. RESPIRATORY: Breath sounds equal bilaterally. No accessory muscle use. GASTROINTESTINAL: Abdomen soft, non-tender, nondistended. EXTREMITIES: No cyanosis, or edema. NEUROLOGICAL: Awake, alert, and oriented x 3. Non-focal. (Gilbert Owen MD R2) A/P Assessment and Plan 60F with one-month history of persistent herpes simplex keratitis admitted from ophthalmology clinic (Dr. Lagos) for failed outpatient therapy and pain control. Discharge Planning Tue06/09/2016as recommended by Dr. Lagos (ophthalmology). Will need next day f/ u. (Gilbert Owen MD R2) Attending Attestation Pt. examined and case discussed with resident physician I have read the above note and agree with the assessment/plan as discussed with me I was involved in all medical decision making for this patient Patricio Bourne MD (Patricio Bourne MD) Problem List: (1) Herpes simplex keratitis of left eye Status: Acute Plan: Patient with previous admission May 26-2016 for herpes simplex keratitis of the left eye. 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 Lagos, supervisor lace tearing. Treatment has been resistant over the last couple weeks. Due to worsening symptoms and continued pain today, was referred to the ED for re- admission. Ophthalmology consulted: Appreciate recommendations. She is currently continuing regimen as documented below HIV was negative. -Consider orbital or head CT if patient worsens clinically or has more severe symptoms despite pain control -Pain control with Ultram and Ibuprofen as needed, not requiring much pain medication at this time Medication regimen: * Acyclovir 800 mg 5x/day (has been taking 05/21-current) * Trifluridine QID left eye (has been using 05/22-06/04) spaced out to q4h on 06/04 * Prednisolone 1% topical started 06/04 QID (2) Hypertension Status: Acute Plan: EP well controlled. Was prescribed current home meds for the first time during previous hospital stay this month. -Continue home HCTZ 25mg daily -Continue home Amlodipine 5mg daily (3) COPD (chronic obstructive pulmonary disease) Status: Chronic Plan: Long history of smoking in conjunction with a history of asthma. She also reports a history of pleural effusion/edema for which she takes Lasix daily - Wean prednisone during hospital stay. Started at 9mg day. Now getting 2mg daily. Will continue 2mg daily and monitor. Goal is to wean off prior to discharge. - Clinical exam unremarkable - Albuterol as needed - not requiring - CXR 06/03 unremarkable - Nicotine patch high-dose, counseled on smoking cessation (4) Fluids/Electrolytes/Nutrition/Prophylaxis Status: Acute Plan: Fluids: tolerating PO Electrolytes: monitor and replete as needed Nutrition: Regular diet DVT Prophylaxis: Lovenox 40mg subQ q24hr wdw Dr. Bourne. (Gilbert Owen MD R2) Gilbert Owen MD R2 Jun 09, 2016 12:15 Patricio Bourne MD Jun 09, 2016 21:44
[2016-06-09 12:30] VITALS: BP 112/59; PULSE 77; RESP 18; TEMP 97.9; O2SAT 97
[2016-06-10] MEDS ORDERED: PRED1SUS LEFT EYE (08:57)
[2016-06-10] MEDS ORDERED: TRIF1SOL3 LEFT EYE (08:57)
--- NOTE | 2016-06-11 16:08 | HHI.DS ---
Discharge Summary Admission Date Jun 01, 2016 at 16:27 Discharge Date: Jun 07, 2016 Admitting Diagnosis Herpes Keratitis, Intractible pain. (1) Herpes simplex keratitis of left eye Diagnosis: Principal Plan: Patient with previous admission May 26-2016 for herpes simplex keratitis of the left eye. 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 Lagos, decision support analyst. Treatment has been resistant over the last couple weeks. Due to worsening symptoms and continued pain today, was referred to the ED for re- admission. Ophthalmology consulted: Appreciate recommendations. She is currently continuing regimen as documented below HIV was negative. -Consider orbital or head CT if patient worsens clinically or has more severe symptoms despite pain control -Pain control with Ultram and Ibuprofen as needed, not requiring much pain medication at this time Medication regimen: * Acyclovir 800 mg 5x/day (has been taking 05/21-current) * Trifluridine QID left eye (has been using 05/22-06/04) spaced out to q4h on 06/04 * Prednisolone 1% topical started 06/04 QID (2) Hypertension Diagnosis: Secondary Plan: EP well controlled. Was prescribed current home meds for the first time during previous hospital stay this month. -Continue home HCTZ 25mg daily -Continue home Amlodipine 5mg daily (3) COPD (chronic obstructive pulmonary disease) Diagnosis: Secondary Plan: Long history of smoking in conjunction with a history of asthma. She also reports a history of pleural effusion/edema for which she takes Lasix daily - Wean prednisone during hospital stay. Started at 9mg day. Now getting 2mg daily. Will continue 2mg daily and monitor. Goal is to wean off prior to discharge. - Clinical exam unremarkable - Albuterol as needed - not requiring - CXR 06/03 unremarkable - Nicotine patch high-dose, counseled on smoking cessation Consultants Ophthalmopathy Brief History Patient is a 60-year-old female with a history of Herpes keratitis, hypertension , COPD who presents from ophthalmology clinic for further evaluation and treatment of her condition. She states that at the onset of her symptoms about a month ago, she thinks something got into the left eye; she rubbed it, "whatever was in it didn't come out, irritated it". She thereafter presented to the ED multiple times in April 2016, and diagnosed with corneal abrasion, discharged with topical analgesics.At that time she was re-treated and went to Dr. Lagos, who started treating it as outpatient. This did not improve her symptoms over three days of treatment, so on May 21, she was admitted to the service for workup of herpes simplex keratitis, was discharged on May 26, 2016. During that stay she was given acyclovir by mouth 5 times per day, Viroptic q4hr to left eye, and prednisolone 1% to left eye and was discharged on these medications. Today she endorses exceptional photosensitivity and left retroorbital pain which has persistently worsened. She states she cannot get around or work due to pain retroorbital. She states only left eye is affected, but notes "floaters" in right eye recently. Opening right eye makes left eye hurt. Vision is blurry, only sees silhouette in left eye. No diplopia. Normal vision reported in right eye. No crusting. Endorses watery eyes. Imaging Last Impressions Chest X-Ray 06/03/16 0000 Signed Impressions: Service Date/Time: May 18:59 - CONCLUSION: No evidence of acute cardiopulmonary disease. Kyler Kwan MD PE at Discharge GENERAL: Well-nourished, well-developed AA female walking around the room without difficulty. SKIN: Warm and dry. No rashes or bruises. HEAD: Normocephalic. EYES: Conjunctival injection on left side, improving. Scarring over cornea seems to have improved. No drainage of the eyes. Vision card is read without difficulty with the right eye, large letters are visible to the left eye at close distance. Periocular areas are clean without crusting; eyes not actively draining. NECK: Supple, trachea midline. No JVD or lymphadenopathy. CARDIOVASCULAR: Regular rate and rhythm without murmurs, gallops, or rubs. RESPIRATORY: Breath sounds equal bilaterally. No accessory muscle use. GASTROINTESTINAL: Abdomen soft, non-tender, nondistended. EXTREMITIES: No cyanosis, or edema. NEUROLOGICAL: Awake, alert, and oriented x 3. Non-focal. Hospital Course Patient was admitted for pain control and inpatient management of herpes keratitis after failed outpatient therapy. Initial treatment was home regimen, which included oral acyclovir and topical trifluridine. Booster Pump Operator Dr. Lagos was consulted as patient was sent from her clinic to ED on 06/08. Pain was controlled with Tramadol and Ultram. She had improvement in pain symptoms within days, and was continued on increased frequency topical medications as inpatient. Topical steroids were incorporated into daily regimen as well, and patient improved significantly over the week. Vision slowly improved as well. Patient was discharged in stable condition on June 09, with prescriptions for pain medications, acyclovir, and topical ophthalmic solutions. She will follow- up closely with Dr. Lagos as outpatient. Pt Condition on Discharge: Stable Discharge Disposition: Discharge Home Discharge Instructions DIET: Follow Instructions for: As Tolerated, No Restrictions Activities you can perform: Regular-No Restrictions Follow up Referrals: Ophthalmology - 1 Week with Griselda Lagos MD Physician - 1 Week with Carmel Raphael MD New Medications: Acyclovir (Acyclovir) 800 Mg Tab 800 MG PO 5 TIMES A DAY #180 Ref 0 TAB Tramadol (Ultram) 50 Mg Tab 50 MG PO Q4H PRN PAIN 8-10 #60 TAB Continued Medications: Albuterol 6.7 GM Inh (Proventil Hfa 6.7 GM Inh) 90 Mcg/Act Aer 2 PUFF INH Q4-6H PRN SHORTNESS OF BREATH #1 Ref 0 INHALER Amlodipine (Norvasc) 5 Mg Tab 5 MG PO DAILY #30 TAB (This prescription has been renewed) Docusate Sodium (Docusate Sodium) 100 Mg Cap 300 MG PO DAILY Prevent Constipation #60 Ref 0 CAP (This prescription has been renewed) Hydrochlorothiazide (Hydrochlorothiazide) 25 Mg Tab 25 MG PO DAILY #30 TAB (This prescription has been renewed) Multiple Vitamins W/ Minerals (Multi For Her) 1 Tab Tab Discontinued Medications: Acyclovir (Acyclovir) 800 Mg Tab 800 MG PO 5 TIMES A DAY #25 TAB Prednisone (Prednisone) 1 Mg Tab 4 MG PO DAILY take 4 tabs (4mg) plus one 5mg tab for a total of 9mg daily #120 TAB Prednisone (Prednisone) 5 Mg Tab 5 MG PO DAILY take 4 tabs (4mg) plus one 5mg tab for a total of 9mg daily #30 TAB Tramadol (Tramadol) 50 Mg Tab 50 MG PO Q6H PRN PAIN #30 TAB Debbie Gross MD R1 Jun 11, 2016 16:08
[2016-06-15] MEDS ORDERED: PRED5TAB PO (10:25)
[2016-06-15] MEDS ORDERED: FLUT50SP EACH NARE (10:25)
[2016-06-22] MEDS ORDERED: PRED1SUS LEFT EYE (10:13)
[2016-06-22] MEDS ORDERED: ACYC800T PO (10:13)
[2016-07-15] MEDS ORDERED: CARB1DRO RIGHT EYE (10:45)
[2016-07-15] MEDS ORDERED: PRED10 PO (10:45)
[2016-07-15] MEDS ORDERED: PRED1SUS LEFT EYE (10:45)
[2016-07-22] MEDS ORDERED: FIBE625T10 PO (10:41)
[2016-07-22] MEDS ORDERED: PRED10 PO (10:58)
[2016-07-22] MEDS ORDERED: KETO60IN6 IM (10:59)
[2016-07-22] MEDS ORDERED: METH125I2 IM (10:59)
[2016-07-26] MEDS ORDERED: PRED1SUS6 LEFT EYE (10:05)
[2016-09-07] MEDS ORDERED: PRED10 PO (13:02)
[2016-09-16] MEDS ORDERED: PRED1SUS6 LEFT EYE (14:35)
[2016-09-16] MEDS ORDERED: PRED20 PO (15:15)
== END 2016-06-09 12:56 | disposition home or self-care (01) | DRG 125 ==
LOC: NEPC 10:32 → NEDA 13:21 → NEPGCP 17:33 → OBSVTOIN 06-01 16:27 → N04A 06-03 06:18
PROVIDERS: ADMIT Family Medicine; ATTEND Family Medicine
DX: B00.52 Herpesviral keratitis (principal); N17.9 Acute kidney failure, unspecified; J44.9 Chronic obstructive pulmonary disease, unspecified; J45.909 Unspecified asthma, uncomplicated; Z79.52 Long term (current) use of systemic steroids; I12.9 Hypertensive chronic kidney disease with stage 1 through stage 4 chronic kidney disease, or unspecified chronic kidney disease; N18.9 Chronic kidney disease, unspecified; G89.29 Other chronic pain; M54.5 Low back pain; F17.210 Nicotine dependence, cigarettes, uncomplicated; G44.209 Tension-type headache, unspecified, not intractable
CPT/HCPCS: 71010; 80048; 80076; 80307; 85025; 86703; 96374; 96375; G0378; J1200; J1650; J2270; J7030; J7512

== ENCOUNTER 2016-07-07 08:47 | Emergency (ER) | payer OTHER ==
[~2016-07-07] VITALS: Ht 160 cm; Wt 72.0 kg
[~2016-07-07 08:47] MED LIST changes: +FLUT50SP EACH NARE; -PRED1 PO; +PRED1SUS LEFT EYE; -PRED1SUS6 LEFT EYE; -TRAM50TA PO; -TRIF1SOL3 LEFT EYE; +ULTR50TA5 PO
[2016-07-07 08:50] VITALS: BP 182/100; PULSE 76; RESP 24; TEMP 97.8; O2SAT 96
[2016-07-07] MEDS ORDERED: methylPREDNISolone ACETATE 40 MG/ML VIAL I-LESIONAL ONE (09:45)
[2016-07-07] MEDS ORDERED: BUPIVACAINE HCL PF 0.5% 10 ML VIAL INFIL ONE (09:45)
--- NOTE | 2016-07-07 09:55 | PD ---
HPI Chief Complaint: Pain: Acute or Chronic Time Seen by Provider: 09:23 Travel History International Travel<30 days: No Contact w/Intl Traveler<30days: No Traveled to known affect area: No History of Present Illness HPI She complains of pain in her right wrist. There is a distinct spot right behind the thumb that causes her pain. If she moves her thumb or wrist it causes pain. Severity is moderate. Duration is one day. No injury or fever. She is left-handed. PFSH Past Medical History Arthritis: Yes (lt leg, hands ) Asthma: Yes Blood Disorders: No Anxiety: No Depression: No Heart Rhythm Problems: No Cancer: No Cardiac Catheterization: No Cardiovascular Problems: Yes High Cholesterol: Yes Chemotherapy: No Chest Pain: No Congestive Heart Failure: No COPD: Yes Cerebrovascular Accident: No Diabetes: No Diminished Hearing: No Endocrine: No Gastrointestinal Disorders: No GERD: No Genitourinary: No Headaches: Yes Hiatal Hernia: No Hypertension: Yes Immune Disorder: No Kidney Stones: No Musculoskeletal: Yes Neurologic: Yes Psychiatric: No Reproductive: No Respiratory: Yes Migraines: No Radiation Therapy: No Renal Failure: No Seizures: No Shingles: Yes (L EYE) Sickle Cell Disease: No Sleep Apnea: No Thyroid Disease: No Ulcer: No Tetanus Vaccination: < 5 Years Influenza Vaccination: Yes ?: Not Menopausal: Yes : 7 Para: 6 Miscarriage: 1 : 0 Tubal Ligation: Yes Past Surgical History AICD: No Cardiac Surgery: No Coronary Artery Bypass Graft: No Ear Surgery: No Endocrine Surgery: No Eye Surgery: No Genitourinary Surgery: No Gynecologic Surgery: No Insulin Pump: No Joint Replacement: No Oral Surgery: Yes (bleeding gums teeth pulled) Pacemaker: No Thoracic Surgery: No Other Surgery: Yes (back surgery 2005) Family History Family Myocardial Infarction: Yes (Mother at 53 from [place]) Social History Alcohol Use: Yes (OCC) Tobacco Use: Yes (1/2 PPD) Substance Use: Yes (marijuana, occassional) Allergies-Medications (Allergen,Severity, Reaction): Coded Allergies: Lortab (Verified Allergy, Severe, ITCHING "BUT I CAN TAKE WITH A BENADRYL ", 07/07/16) Morphine (Verified Adverse Reaction, Severe, Nausea/Vomiting/ITCH, 07/07/16 ) Reported Meds & Prescriptions Reported Meds & Active Scripts Active Ultram (Tramadol HCl) 50 Mg Tab 50 Mg PO Q4H PRN Hydrochlorothiazide 25 Mg Tab 25 Mg PO DAILY Norvasc (Amlodipine Besylate) 5 Mg Tab 5 Mg PO DAILY Docusate Sodium 100 Mg Cap 300 Mg PO DAILY Reported Acyclovir 800 Mg Tab 0.5 Tab PO BID Pred Forte Opth Drops (Prednisolone Acetate Opth Drops) 1% Susp 1 Drop LEFT EYE Q2HR Fluticasone Nasal [place] 50 Mcg/Act Naspr 50 Mcg EACH NARE DAILY 50 mcg/spray Prednisone 5 Mg Tab 5 Mg PO DAILY Multi For Her (Multiple Vitamins W/ Minerals) 1 Tab Tab Proventil Hfa 6.7 GM Inh (Albuterol Sulfate) 90 Mcg/Act Aer 2 Puff INH Q4-6H PRN Review of Systems General / Constitutional: No: Fever HENT: No: Headaches Cardiovascular: No: Chest Pain or Discomfort Respiratory: No: Cough Physical Exam Narrative SKIN: Focused skin assessment reveals no rash or ulcers. Skin is warm and dry. Palpation shows no induration or nodules. Psych: Normal mood and affect. Normal insight and judgment. Right wrist: No erythema or warmth. She has very exquisite point tenderness at the base the first metacarpal. No bruising. Neurovascularly intact Data Data Last Documented VS Vital Signs Date Time Temp Pulse Resp B/P Pulse Ox O2 Delivery O2 Flow Rate FiO2 07/07/16 09:19 67 18 07/07/16 08:50 97.8 182/100 96 Room Air Orders Methylprednisolone Acetate Inj (Depo-Med (07/07/16 09:45) Bupivacaine Pf 0.5% Inj (Marcaine Pf 0.5 (07/07/16 09:45) Splint Or Brace Apply/Monitor (07/07/16 10:09) [facility] Medical Decision Making Medical Screen Exam Complete: Yes Emergency Medical Condition: Yes Medical Record Reviewed: Yes Differential Diagnosis Dequervains tenosynovitis, inflammatory arthritis, tendinitis Narrative Course I have reviewed the patient's electronic medical record. This patient has a very localized discomfort consistent with DeQuervains tenosynovitis. There are not any objective findings on exam. No other joints or areas are inflamed. We discussed options. I suspect she may benefit from a local injection of Marcaine and Depo-Medrol. Risks and benefits reviewed. She gives verbal consent. Procedure note: I cleaned the right wrist area. I palpated landmarks. I injected at the base of the first metacarpal and family injection around the area. [place] are always withdrawn to make sure there is no intravascular injection. I injected a total of 3 cc of 0.5% Marcaine and 1 cc of 40 mg/cc Depo-Medrol. Procedure was tolerated well. No complications. Approximately 30 seconds later she started to get relief. I placed her in a Velcro wrist splint. She should ice and elevate and follow-up with her primary physician. Prescription for tramadol and prednisone written Diagnosis Primary Impression: Tenosynovitis of forearm Additional Instructions: The patient was advised to follow up with their physician and return if they worsen. The patient was warned about potential sedation for the medications they will receive on prescription. Ice and elevate right wrist Med/Other Pt SpecificInfo: Prescription(s) given Scripts Prednisone 20 Mg Tab40 Mg PO DIRECTED #10 TAB Ref 0 Prov:Mushtaq Marti MD 07/07/16 Tramadol 50 Mg Tab50 Mg PO Q6H PRN (PAIN) #20 TAB Ref 0 Prov:Mushtaq Marti MD 07/07/16 Disposition: 01 DISCHARGE HOME Condition: Stable Mushtaq Marti MD Jul 07, 2016 09:55
[2016-07-07] MEDS ORDERED: PRED20 PO (10:43)
[2016-07-07] MEDS ORDERED: TRAM50TA PO (10:43)
[2016-07-15] MEDS ORDERED: CARB1DRO RIGHT EYE (10:45)
[2016-07-15] MEDS ORDERED: PRED1SUS LEFT EYE (10:45)
[2016-07-15] MEDS ORDERED: PRED10 PO (10:45)
[2016-07-22] MEDS ORDERED: FIBE625T10 PO (10:41)
[2016-07-22] MEDS ORDERED: PRED10 PO (10:58)
[2016-07-22] MEDS ORDERED: METH125I2 IM (10:59)
[2016-07-22] MEDS ORDERED: KETO60IN6 IM (10:59)
[2016-07-26] MEDS ORDERED: PRED1SUS6 LEFT EYE (10:05)
[2016-09-07] MEDS ORDERED: PRED10 PO (13:02)
[2016-09-16] MEDS ORDERED: PRED1SUS6 LEFT EYE (14:35)
[2016-09-16] MEDS ORDERED: PRED20 PO (15:15)
== END 2016-07-07 11:10 | disposition home or self-care (01) ==
LOC: NEPD 08:47
DX: M65.831 Other synovitis and tenosynovitis, right forearm (principal); I10 Essential (primary) hypertension; F17.210 Nicotine dependence, cigarettes, uncomplicated
CPT/HCPCS: 20550; 99283; J1030; L3908

== ENCOUNTER 2018-02-05 07:45 | Observation (INO) ==
[2018-02-05] MEDS ORDERED: Sod Chloride 0.9% Inj 1,000 ML IV.SIG ONE (08:05)
[2018-02-05] MEDS ORDERED: Pantoprazole Inj 40 MG Vial IV.PUSH ONE (08:05)
[2018-02-05] MEDS ORDERED: Sod Chloride 0.9% Inj 1,000 ML IV.SIG SCH (08:15)
--- NOTE | 2018-02-05 08:23 | ED ---
HPI General Chief Complaint: Abdominal Pain Stated Complaint: rectal bleeding Time Seen by Provider: 02/05/18 07:58 Source: patient and old records reviewed Mode of arrival: ambulatory Limitations: no limitations History of Present Illness HPI narrative: The patient is a 62-year-old female who arrives with a complaint of rectal bleeding which started 2 nights ago and lasted throughout most of tonight. Patient reports clots and dark blood. She also reports suprapubic abdominal pain. She reports a polyp was seen on prior colonoscopy. She reports a similar episode occurred about 3 years ago. She denies blood thinner use. Associated symptoms include wheezing and shortness of breath. The patient also feels somewhat anxious. She reports she has a history of COPD and smokes 10 cigarettes a day. No fever. No vomiting. Related Data Home Medications Medication Instructions Recorded Confirmed albuterol sulfate [Proventil HFA] 2 puff INHALATION Q4-6H PRN 02/05/18 02/05/18 amlodipine 5 mg PO DAILY 02/05/18 02/05/18 bimatoprost 1 drp OPHTHALMIC (EYE) QPM 02/05/18 02/05/18 brinzolamide-brimonidine 1 drp OPHTHALMIC (EYE) DAILY 02/05/18 02/05/18 cyclobenzaprine 5 mg PO TID 02/05/18 02/05/18 furosemide mg PO DAILY 02/05/18 prednisolone acetate 1 drp OPHTHALMIC (EYE) DAILY 02/05/18 02/05/18 prednisone 5 mg PO DAILY 02/05/18 02/05/18 Allergies Allergy/AdvReac Type Severity Reaction Status Date / Time acetaminophen Allergy Severe ITCHING Verified 02/05/18 07:51 "BUT I CAN TAKE WITH A BENADRYL" hydrocodone Allergy Severe ITCHING Verified 02/05/18 07:51 "BUT I CAN TAKE WITH A BENADRYL" morphine AdvReac Severe Nausea/Vomi Verified 02/05/18 07:51 ting/ITCH Review of Systems ROS: all other systems reviewed are negative Constitutional Denies fever(s) and Denies increased appetite PMFSH Medical History Medical History Asthma (Acute) Hypercholesteremia (Acute) Hypertension (Acute) CHF (congestive heart failure) (Acute) COPD (chronic obstructive pulmonary disease) (Acute) Colon polyps (Acute) Glaucoma (Acute) Surgical History Surgical History History of back surgery (Acute) Social History Social History Substance History: No History of Abuse Second Hand Smoke Exposure: Yes Smoking Status: Current every day smoker Tobacco Type: Cigarettes How Often Do You Have a Drink Containing Alcohol: 2 to 4 times a month Recent Travel in [facility] within the Last 8 Weeks: No Recent Out of Country Travel within the Last 8 Weeks: No Immunization History Tetanus Immunization: Unsure Exam Narrative Exam Narrative: GENERAL: 62-year-old female pleasant well-nourished well- developed SKIN: Focused skin assessment warm/dry. HEAD: Atraumatic. Normocephalic. EYES: Pupils equal and round. No scleral icterus. No injection or drainage. ENT: No nasal bleeding or discharge. Mucous membranes pink and moist. NECK: Trachea midline. No JVD. CARDIOVASCULAR: Regular rate and rhythm. No murmur appreciated. RESPIRATORY: Minimal wheezing bilaterally. Respiratory rate about 24. GASTROINTESTINAL: Tender to palpation diffusely. Soft. MUSCULOSKELETAL: No obvious deformities. No clubbing. No cyanosis. No edema. NEUROLOGICAL: Awake and alert. No obvious cranial nerve deficits. Motor grossly within normal limits. Normal speech. PSYCHIATRIC: Appropriate mood and affect; insight and judgment normal. Course Initial Documented Vital Signs Temperature 98.3 F 02/05/18 07:47 Pulse Rate 80 02/05/18 07:47 Respiratory Rate 20 02/05/18 07:47 Blood Pressure 144/84 H 02/05/18 07:47 Pulse Oximetry 97 02/05/18 07:47 Last Documented Vital Signs Temperature 98.3 F 02/05/18 07:47 Pulse Rate 58 L 02/05/18 08:14 Respiratory Rate 27 H 02/05/18 08:14 Blood Pressure 139/72 02/05/18 08:01 Pulse Oximetry 99 02/05/18 08:09 Medical Decision Making [facility] Narrative Medical decision making narrative: GI Bleed with diverticulosis on CT, Hg stable , hx polyps on prior colonoscopy Wheezing improved with duoneb HD stable d/w Dr Hernandez for [facility], admission for GI bleed with clots and dark blood x approx 36 hours Medical Screen Exam Complete: Yes Emergency Medical Condition: Yes Differential Diagnosis Differential Diagnosis: UGIB, LGIB, anemia, colitis, UTI, TRISTEN Medical Records Medical records reviewed: Yes I reviewed the patient's medical records. Lab Data Lab results reviewed: Yes I reviewed the patient's lab results. Result diagrams: 02/05/18 08:18 02/05/18 08:18 Lab Results 02/05/18 02/05/18 02/05/18 Range/Units 08:18 08:18 08:18 WBC 7.5 (4.0-11.0) th/mm3 RBC 4.98 (4.00-5.30) mil/mm3 Hgb 12.1 (11.6-15.3) gm/dL Hct 37.0 (35.0-46.0) % MCV 74.3 L (80.0-100.0) fL MCH 24.4 L (27.0-34.0) pg MCHC 32.8 (32.0-36.0) % RDW 13.8 (11.6-17.2) % Plt Count 200 (150-450) th/mm3 MPV 9.2 (7.0-11.0) fL Neut % (Auto) 62.8 (16.0-70.0) % Lymph % (Auto) 27.7 (9.0-44.0) % Dent % (Auto) 5.9 (0.0-8.0) % Eos % (Auto) 3.3 (0.0-4.0) % Baso % (Auto) 0.3 (0.0-2.0) % Neut # (Auto) 4.7 (1.8-7.7) th/mm3 Lymph # (Auto) 2.1 (1.0-4.8) th/mm3 Dent # (Auto) 0.4 (0.0-0.9) th/mm3 Eos # (Auto) 0.3 (0.0-0.4) th/mm3 Baso # (Auto) 0.0 (0.0-0.2) th/mm3 WBC Differential . Differential Comment Auto diff final PT 10.0 (9.8-11.6) sec INR 1.0 Ratio APTT 24.7 (23.4-31.7) sec Sodium 141 (136-145) meq/L Potassium 3.3 L (3.5-5.1) meq/L Chloride 108 H (98-107) meq/L Carbon Dioxide 23.7 (21.0-32.0) meq/L Anion Gap 9 (5-15) meq/L BUN 18 (7-18) mg/dL Creatinine 0.89 (0.50-1.00) mg/dL Estimated GFR 78 L (>89) mL/min Random Glucose 105 (74-106) mg/dL Calcium 8.7 (8.5-10.1) mg/dL Magnesium 1.9 (1.5-2.5) mg/dL Total Bilirubin 0.4 (0.2-1.0) mg/dL AST 32 (15-37) U/L ALT 31 (10-53) U/L Alkaline Phosphatase 83 (45-117) U/L Troponin I Less than 0.02 L (0.02-0.05) ng/mL Total Protein 7.4 (6.4-8.2) g/dL Albumin 3.7 (3.4-5.0) g/dL Lipase 123 (73-393) U/L Urine Color (Yellw/Straw) Urine Clarity (Clear) Urine pH (5.0-8.5) Ur Specific [place] (1.002-1.035) Urine Protein (Neg-Trace) mg/dL Urine Glucose (UA) (Negative) mg/dL Urine Ketones (Negative) mg/dL Urine Occult Blood (Negative) Urine Nitrate (Negative) Urine Bilirubin (Negative) Urine Urobilinogen (Less than 2) mg/dL Ur Leukocyte Esterase (Negative) Urine RBC (0-3) /hpf Urine WBC (0-5) /hpf Ur Squamous Epith Cells (0-5) /hpf Hyaline Casts (0-3) /lpf Granular Casts (None) /lpf Urine Mucus (Occasional) /lpf Micro UA Comment Ur Microscopic Review Urine Culture Comments Blood Type Antibody Screen 02/05/18 02/05/18 Range/Units 08:18 09:45 WBC (4.0-11.0) th/mm3 RBC (4.00-5.30) mil/mm3 Hgb (11.6-15.3) gm/dL Hct (35.0-46.0) % MCV (80.0-100.0) fL MCH (27.0-34.0) pg MCHC (32.0-36.0) % RDW (11.6-17.2) % Plt Count (150-450) th/mm3 MPV (7.0-11.0) fL Neut % (Auto) (16.0-70.0) % Lymph % (Auto) (9.0-44.0) % Dent % (Auto) (0.0-8.0) % Eos % (Auto) (0.0-4.0) % Baso % (Auto) (0.0-2.0) % Neut # (Auto) (1.8-7.7) th/mm3 Lymph # (Auto) (1.0-4.8) th/mm3 Dent # (Auto) (0.0-0.9) th/mm3 Eos # (Auto) (0.0-0.4) th/mm3 Baso # (Auto) (0.0-0.2) th/mm3 WBC Differential Differential Comment PT (9.8-11.6) sec INR Ratio APTT (23.4-31.7) sec Sodium (136-145) meq/L Potassium (3.5-5.1) meq/L Chloride (98-107) meq/L Carbon Dioxide (21.0-32.0) meq/L Anion Gap (5-15) meq/L BUN (7-18) mg/dL Creatinine (0.50-1.00) mg/dL Estimated GFR (>89) mL/min Random Glucose (74-106) mg/dL Calcium (8.5-10.1) mg/dL Magnesium (1.5-2.5) mg/dL Total Bilirubin (0.2-1.0) mg/dL AST (15-37) U/L ALT (10-53) U/L Alkaline Phosphatase (45-117) U/L Troponin I (0.02-0.05) ng/mL Total Protein (6.4-8.2) g/dL Albumin (3.4-5.0) g/dL Lipase (73-393) U/L Urine Color Yellow (Yellw/Straw) Urine Clarity Hazy H (Clear) Urine pH 5.0 (5.0-8.5) Ur Specific [place] 1.020 (1.002-1.035) Urine Protein Negative (Neg-Trace) mg/dL Urine Glucose (UA) Negative (Negative) mg/dL Urine Ketones Negative (Negative) mg/dL Urine Occult Blood Moderate H (Negative) Urine Nitrate Negative (Negative) Urine Bilirubin Negative (Negative) Urine Urobilinogen 2.0 H (Less than 2) mg/dL Ur Leukocyte Esterase Negative (Negative) Urine RBC 4 H (0-3) /hpf Urine WBC 1 (0-5) /hpf Ur Squamous Epith Cells 1 (0-5) /hpf Hyaline Casts 8 (0-3) /lpf Granular Casts 4 (None) /lpf Urine Mucus Few H (Occasional) /lpf Micro UA Comment Culture not ind Ur Microscopic Review Not Reportable Urine Culture Comments Culture not ind Blood Type B Positive Antibody Screen Negative Imaging Data Radiologist's impression: Abdomen/Pelvis CT 02/05/18 08:05 CONCLUSION: 1. Diverticulosis of the descending and sigmoid colon. No evidence of acute diverticulitis. Discharge Plan Discharge Disposition Patient Disposition: 30 Still Patient Physicians Team ED Provider: Zacarias Garcia Primary Care Provider: Nereyda Day, Attending Provider: Padmini Hernandez Discharge Interventions Interventions: Vital Signs Last Done: 02/05/18 08:01 Status ED Status: Admitted Patient
[2018-02-05 08:28] LABS: Baso % (Auto) 0.3 % (0.0-2.0); Eos # (Auto) 0.3 th/mm3 (0.0-0.4); Eos % (Auto) 3.3 % (0.0-4.0); Hemoglobin 12.1 gm/dL (11.6-15.3); Lymph # (Auto) 2.1 th/mm3 (1.0-4.8); Lymph % (Auto) 27.7 % (9.0-44.0); Mean Corpuscular HGB Conc 32.8 % (32.0-36.0); Mean Corpuscular Hemoglobin 24.4 pg (27.0-34.0); Mean Corpuscular Volume 74.3 fL (80.0-100.0); Mean Platelet Volume 9.2 fL (7.0-11.0); Mono # (Auto) 0.4 th/mm3 (0.0-0.9); Mono % (Auto) 5.9 % (0.0-8.0); Neut # (Auto) 4.7 th/mm3 (1.8-7.7); Neut % (Auto) 62.8 % (16.0-70.0); Platelet Count 200 th/mm3 (150-450); Red Blood Count 4.98 mil/mm3 (4.00-5.30); Red Cell Distribution Width 13.8 % (11.6-17.2); White Blood Count 7.5 th/mm3 (4.0-11.0)
[2018-02-05 08:40] LABS: Alanine Aminotransferase 31 U/L (10-53)
[2018-02-05 08:42] LABS: Albumin 3.7 g/dL (3.4-5.0); Anion Gap 9 meq/L (5-15); Blood Urea Nitrogen 18 mg/dL (7-18); Calcium 8.7 mg/dL (8.5-10.1); Carbon Dioxide 23.7 meq/L (21.0-32.0); Chloride 108 meq/L (98-107); Glomerular Filtration Rate 78 mL/min (>89); Glucose,Random 105 mg/dL (74-106); Lipase 123 U/L (73-393); Magnesium 1.9 mg/dL (1.5-2.5); Sodium 141 meq/L (136-145)
[2018-02-05 08:43] LABS: Alkaline Phosphatase 83 U/L (45-117); Total Protein 7.4 g/dL (6.4-8.2)
[2018-02-05 08:45] LABS: Aspartate Aminotransferase 32 U/L (15-37); Potassium 3.3 meq/L (3.5-5.1)
[2018-02-05 08:53] LABS: Activated Partial Thrombo Time 24.7 sec (23.4-31.7)
[2018-02-05 09:57] LABS: Bilirubin,Urine Negative (Negative); Clarity,Urine Hazy (Clear); Color,Urine Yellow (Yellw/Straw); Glucose,Urine (UA) Negative (Negative); Hyaline Casts,Urine 8 /lpf (0-3); Leukocyte Esterase,Urine Negative (Negative); Mucus,Urine Few /lpf (Occasional); Nitrite,Urine Negative (Negative); Squamous Epithelial Cell,Urine 1 /hpf (0-5)
--- NOTE | 2018-02-05 10:04 | CT ---
EXAM DATE: 02/05/2018 9:56 AM EST AGE/SEX: 62 years / Female INDICATIONS: Abdomen pain and rectal bleeding CLINICAL DATA: This is the patient's initial encounter. Patient reports that signs and symptoms have been present for 1 day and indicates a pain score of 10/10. MEDICAL/SURGICAL HISTORY: Congestive heart failure. Colonic polyps. Chronic obstructive pulmo nary disease. Hypertension, asthma . Back Surgery RADIATION DOSE: 6.57 CTDI (mGy) COMPARISON: [facility] [place], CT ABDOMEN & PELVIS W/O CONTRAST, 12/15/2015. [facility] [place], CT ABDOMEN & PELVIS W/O CONT RAST, 07/16/2010. . TECHNIQUE: Multiple contiguous axial images were obtained through the abdomen. Images were obtained using multiple row detector helical technique. Using automated exposure control and adjustment of the mA and/or kV according to patient size, radiation dose was kept as low as reasonably achievable to o btain optimal diagnostic quality images. DICOM format image data is available electronically for rev iew and comparison. FINDINGS: Lower Lungs: The visualized lower lungs are clear. Liver: The liver appears moderately enlarged and slightly decreased in attenuation with respect to th e adjacent spleen. Spleen: Homogeneous density without enlargement. Pancreas: Unremarkable without mass or calcification. Kidneys: Normal in size and shape. No evidence of mass or hydronephrosis. Adrenal Glands: Unremarkable. Aorta: The aorta and proximal iliac vessels are grossly unremarkable without aneurysmal dilation. Bowel/Mesentery: There is extensive diverticulosis involving the descending and sigmoid colon. No ev idence of abnormal wall thickening or adjacent inflammatory change. Exam is somewhat limited by the l ack of IV or oral contrast. The remainder of the large bowel demonstrates scattered diverticuli witho ut evidence of abnormal wall thickening. The appendix is normal. Small bowel is unremarkable on this exam.. Abdominal Wall: Intact. Retroperitoneum: No evidence of adenopathy in the retrocrural, para-aortic, or deep pelvic regions. Bladder: Contours are smooth. Reproductive Organs: No abnormal masses or calcifications seen. Inguinal: The inguinal region is unremarkable without evidence of adenopathy. Bony Structures: Extensive degenerative changes identified predominantly within the facet joints of the lower lumbar spine. CONCLUSION: 1. Diverticulosis of the descending and sigmoid colon. No evidence of acute diverticulitis. Electronically signed by: Hilda Shrestha MD 02/05/2018 10:02 AM EST
[2018-02-05] MEDS ORDERED: Sod Chloride 0.9% Inj 1,000 ML IV.CONT SCH (10:30)
[2018-02-05] MEDS ORDERED: Potassium Chloride Inj 20 MEQ in Sod Chloride 0.9% Inj 1,000 ML IV.CONT SCH (10:54)
--- NOTE | 2018-02-05 11:04 | P.HPIM ---
History of Present Illness Primary Care Physician: Nereyda Day Chief Complaint: rectal bleed History of Present Illness: patient is a 62 y/o female with history of asthma, hypertension, glaucoma who presented to ER with rectal bleed. she says that she was at her usual state of health when she started to have rectal bleed. she says that the other night when she had a bowel movement she noticed some blood clots. this happened again last night and this morning which made her to come to the hospital. she's complaining of mild generalized abdominal pain. she had some chills and sob along with mild dizziness but with no fever or emesis. she had colonoscopy two- three years ago when she was reportedly found to have polyps. Inpatient Certification: I certify that the inpatient services were ordered in accordance with Medicare regulations governing the order. This includes certification that hospital inpatient services are reasonable and necessary and in the case of services not specified as inpatient-only under 42 CFR 419.22(n), that they are appropriately provided as inpatient services in accordance to with the 2-midnight benchmark under 43 CFR 412.3(e) Review of Systems All other systems reviewed negative except as stated in HPI PMFSH - History History Provided By: Patient - Medical History Medical History: Medical History (Last Reviewed 02/05/18 @ 11:01 by Padmini Hernandez MD) Asthma Hypercholesteremia Hypertension CHF (congestive heart failure) COPD (chronic obstructive pulmonary disease) Colon polyps Glaucoma - Surgical History Surgical History: Surgical History (Last Reviewed 02/05/18 @ 11:01 by Padmini Hernandez MD) History of back surgery - Family History Family History: Family History (Last Updated 02/05/18 @ 11:01 by Padmini Hernandez MD) Other Family history of diabetes mellitus - Tobacco History Second Hand Smoke Exposure: Yes Tobacco Use In Past 30 Days: Yes Smoking Status: Current every day smoker Tobacco Type: Cigarettes - Alcohol History How Often Do You Have a Drink Containing Alcohol: 2 to 4 times a month - Substance Use History Substance History: No History of Abuse - Travel History Recent Travel in the [place] Within the Last 8 Weeks: No Recent Travel Out of the Country Within the Last 8 Weeks: No - Immunization History Tetanus Immunization: Unsure Medications and Allergies Active Medications: Active Medications Albuterol (Duoneb Neb (Prn)) 1 ampul NEB Q4HR NEB PRN PRN Reason: sob Potassium Chloride 20 meq/ (Sodium Chloride) 1,010 mls @ 84 mls/hr IV.CONT .Q12H2M IMTIAZ Non-Formulary Medication (Bimatoprost [Bimatoprost]) 1 drp EACH EYE QPM IMTIAZ Non-Formulary Medication (Brinzolamide-Brimonidine [Brinzolamide-Brimonidine]) 1 drp EACH EYE DAILY IMTIAZ Ondansetron HCl (Zofran Inj) 4 mg IV.PUSH Q8H PRN PRN Reason: nausea Pantoprazole Sodium (Protonix Inj) 40 mg IV.PUSH Q24H IMTIAZ Prednisolone Acetate (Pred Forte 1% Opth Susp) drop EACH EYE DAILY IMTIAZ Sodium Chloride (Ns Flush) 2 ml IV.FLUSH PRN PRN PRN Reason: FLUSH AFTER USING IV ACCESS Last Admin: 02/05/18 08:26 Dose: 2 ml Allergies Allergy/AdvReac Type Severity Reaction Status Date / Time acetaminophen Allergy Severe ITCHING Verified 02/05/18 07:51 "BUT I CAN TAKE WITH A BENADRYL" hydrocodone Allergy Severe ITCHING Verified 02/05/18 07:51 "BUT I CAN TAKE WITH A BENADRYL" morphine AdvReac Severe Nausea/Vomi Verified 02/05/18 07:51 ting/ITCH Home Medications Medication Instructions Recorded Confirmed Type albuterol sulfate [Proventil HFA] 2 puff INHALATION Q4-6H PRN 02/05/18 02/05/18 History amlodipine 5 mg PO DAILY 02/05/18 02/05/18 History bimatoprost 1 drp OPHTHALMIC (EYE) QPM 02/05/18 02/05/18 History brinzolamide-brimonidine 1 drp OPHTHALMIC (EYE) DAILY 02/05/18 02/05/18 History cyclobenzaprine 5 mg PO TID 02/05/18 02/05/18 History furosemide mg PO DAILY 02/05/18 History prednisolone acetate 1 drp OPHTHALMIC (EYE) DAILY 02/05/18 02/05/18 History prednisone 5 mg PO DAILY 02/05/18 02/05/18 History Exam Vital signs: Vital Signs 02/05/18 07:47 02/05/18 08:01 02/05/18 08:09 Temperature 98.3 F Pulse Rate 80 76 Respiratory Rate 20 18 Blood Pressure 144/84 H 139/72 Pulse Oximetry 97 99 99 02/05/18 08:10 02/05/18 08:14 Temperature Pulse Rate 57 L 58 L Respiratory Rate 27 H Blood Pressure Pulse Oximetry Intake & Output 02/04/18 02/05/18 02/05/18 18:59 06:59 18:59 Intake Total 1999 Balance 1999 Weight 69.4 kg Intake: IV 1999 NS Inj 1,000 ML @ 1000 mls/hr 1999 IV.SIG BOLUS IMTIAZ Rx#:[id number] - Constitutional no acute distress - Routine HEENT Exam Eye: Present: PERRL - Routine Neck Exam Present: supple - Routine Respiratory Exam Present: CTA bilaterally - Routine Cardiovascular Exam Present: RRR - Routine Abdominal Exam Present: soft - Routine Extremities Exam Comments: no pedal edema. - Routine Neurological Exam Present: alert, oriented X3 Results - Labs CBC & Chem 7: 02/05/18 08:18 02/05/18 08:18 Labs: Short CBC 02/05/18 Range/Units 08:18 WBC 7.5 (4.0-11.0) th/mm3 Hgb 12.1 (11.6-15.3) gm/dL Hct 37.0 (35.0-46.0) % Plt Count 200 (150-450) th/mm3 BMP 02/05/18 08:18 Sodium 141 Potassium 3.3 L Chloride 108 H Carbon Dioxide 23.7 BUN 18 Creatinine 0.89 Calcium 8.7 Cardiac Enzymes 02/05/18 Range/Units 08:18 Troponin I Less than 0.02 L (0.02-0.05) ng/mL Liver Function 02/05/18 Range/Units 08:18 Total Bilirubin 0.4 (0.2-1.0) mg/dL AST 32 (15-37) U/L ALT 31 (10-53) U/L Alkaline Phosphatase 83 (45-117) U/L Albumin 3.7 (3.4-5.0) g/dL Urine 02/05/18 Range/Units 09:45 Urine Color Yellow (Yellw/Straw) Urine Clarity Hazy H (Clear) Urine pH 5.0 (5.0-8.5) Ur Specific [place] 1.020 (1.002-1.035) Urine Protein Negative (Neg-Trace) mg/dL Urine Glucose (UA) Negative (Negative) mg/dL - Imaging Impressions Abdomen/Pelvis CT 02/05/18 08:05 CONCLUSION: 1. Diverticulosis of the descending and sigmoid colon. No evidence of acute diverticulitis. Caprini VTE Risk Assessment Caprini VTE Risk Assessment: Moderate/High Risk (score >= 2) VTE Pharmacological Exception Reason: Active bleeding Caprini Risk Assessment Model: Point Value = 1 Point Value = 2 Point Value = 3 Point Value = 5 Age 41-60 Minor surgery BMI > 25 kg/m2 Swollen legs Varicose veins or History of unexplained or recurrent spontaneous Oral contraceptives or hormone replacement Sepsis (< 1 month) Serious lung disease, including pneumonia (< 1 month) Abnormal pulmonary function Acute myocardial infarction Congestive heart failure (< 1 month) History of inflammatory bowel disease Medical patient at bed rest Age 61-74 Arthroscopic surgery Major open surgery (> 45 min) Laparoscopic surgery (> 45 min) Malignancy Confined to bed (> 72 hours) Immobilizing plaster cast Central venous access Age >= 75 History of VTE Family history of VTE Factor V Leiden Prothrombin [id number] Lupus anticoagulant Anticardiolipin antibodies Elevated serum homocysteine Heparin-induced thrombocytopenia Other congenital or acquired thrombophilia Stroke (< 1 month) Elective arthroplasty Hip, pelvis, or leg fracture Acute spinal cord injury (< 1 month) Prophylaxis Regimen: Total Risk Factor Score Risk Level Prophylaxis Regimen 0-1 Low Early ambulation 2 Moderate Order ONE of the following: *Sequential Compression Device (SCD) *Heparin 5000 units SQ BID 3-4 Higher Order ONE of the following medications: *Heparin 5000 units SQ TID *Enoxaparin/Lovenox 40 mg SQ daily (WT < 150 kg, CrCl > 30 mL/min) *Enoxaparin/Lovenox 30 mg SQ daily (WT < 150 kg, CrCl > 10-29 mL/min) *Enoxaparin/Lovenox 30 mg SQ BID (WT < 150 kg, CrCl > 30 mL/min) AND/OR *Sequential Compression Device (SCD) 5 or more Highest Order ONE of the following medications: *Heparin 5000 units SQ TID (Preferred with Epidurals) *Enoxaparin/Lovenox 40 mg SQ daily (WT < 150 kg, CrCl > 30 mL/min) *Enoxaparin/Lovenox 30 mg SQ daily (WT < 150 kg, CrCl > 10-29 mL/min) *Enoxaparin/Lovenox 30 mg SQ BID (WT < 150 kg, CrCl > 30 mL/min) AND *Sequential Compression Device (SCD) Assessment and Plan - Plan A/P - rectal bleed keep NPO- will monitor H/H closely and consult GI - hypertension hold home BP meds for now and continue to monitor. -asthma with no exacerbation neb treatment as needed. -Glaucoma resume home eye drop -mild hypokalemia will replace. DVT prophylaxis with SCD's- no chemical prophylaxis due to rectal bleed. Discussed Condition With: ER physician and the patient. Discharge Planning: home when stable and GI w/u completed.
[2018-02-05] MEDS ORDERED: Influenza (Quadrivalent) Vaccine 0.5 ML Syringe IM ONE (13:30)
--- NOTE | 2018-02-05 14:21 | P.CONGI ---
History of Present Illness Consult date: 02/05/18 Consult reason: Rectal bleed Chief complaint: GI Bleed; diverticulitis History of Present Illness: This patient is a 62-year-old female with a history of asthma, hypertension, glaucoma, elevated cholesterol, COPD, congestive heart failure, and colonic polyps. Surgical history includes tubal ligation and back surgery. This patient presented to the emergency room at [facility] on 02/05/2018 with report of rectal bleeding. Upon consultation, patient reports that she was experiencing constipation with with no BM for 2-3 days prior to bleeding. 2 days ago patient states that she noticed a large dark red blood clot per rectum x1 episode. Yesterday she endorses having increasing lower abdominal cramping and passing dark blood clots per rectum. She states that she was up about every 2 hours into the evening and last night passing clots without any noted stool. Patient denies any use of NSAIDs or aspirin. She denies any use of blood thinners. She states last colonoscopy was done 2-3 years ago and that she was told polyps were found to be benign. Patient denies ever having had an EGD in the past. She states she normally has 1-2 soft brown bowel movements every morning. Denies any previous rectal bleeding. Denies any known family history for gastrointestinal disorders. Patient states that she smokes half a pack of cigarettes daily and also drinks 2-3 glasses of jitendra each week. Patient denies heartburn or difficulty swallowing. She denies significant weight loss but does endorse decreased appetite over the last 8 months with a 3 pound weight loss. Review of Systems All other systems reviewed negative except as stated in HPI PMFSH - History History Provided By: Patient - Medical History Medical History: Medical History (Last Reviewed 02/05/18 @ 11:01 by Padmini Hernandez MD) Asthma Hypercholesteremia Hypertension CHF (congestive heart failure) COPD (chronic obstructive pulmonary disease) Colon polyps Glaucoma - Surgical History Surgical History: Surgical History (Last Reviewed 02/05/18 @ 11:01 by Padmini Hernandez MD) History of back surgery - Family History Family History: Family History (Last Updated 02/05/18 @ 11:01 by Padmini Hernandez MD) Other Family history of diabetes mellitus - Tobacco History Second Hand Smoke Exposure: Yes Tobacco Use In Past 30 Days: Yes Smoking Status: Current every day smoker Tobacco Type: Cigarettes - Alcohol History How Often Do You Have a Drink Containing Alcohol: 2 to 3 times a week - Substance Use History Substance History: No History of Abuse - Travel History Recent Travel in the [place] Within the Last 8 Weeks: No Recent Travel Out of the Country Within the Last 8 Weeks: No - Immunization History Tetanus Immunization: Unsure Hx Influenza Vaccine This Season: No Medications and Allergies Active Medications: Active Medications Hydrocodone Bitart/Acetaminophen ([place] 5/325) 1 tab PO Q6H PRN PRN Reason: pain Last Admin: 02/05/18 13:52 Dose: 1 tab Albuterol (Duoneb Neb (Prn)) 1 ampul NEB Q4HR NEB PRN PRN Reason: sob Diphenhydramine HCl (Benadryl) 25 mg PO Q6H PRN PRN Reason: itching/rash Last Admin: 02/05/18 13:52 Dose: 25 mg Potassium Chloride/Sodium Chloride (Ns + Kcl 20 Meq Inj) 1,000 mls @ 84 mls/hr IV.CONT .[id number] IMTIAZ Last Admin: 02/05/18 13:52 Dose: 84 mls/hr Latanoprost (Xalatan 0.005% Opth Drops) 1 drop EACH EYE DAILY@1800 IMTIAZ Ondansetron HCl (Zofran Inj) 4 mg IV.PUSH Q8H PRN PRN Reason: nausea Pantoprazole Sodium (Protonix Inj) 40 mg IV.PUSH Q24H IMTIAZ Patient Own Medication: Simbrinza ( Brinzolamide 1% & Brimonidine Tartrate 0.2% ) Eye Drops 0 each EACH EYE DAILY IMTIAZ Prednisolone Acetate (Pred Forte 1% Opth Susp) 1 drop EACH EYE DAILY [facility] Sodium Chloride (Ns Flush) 2 ml IV.FLUSH PRN PRN PRN Reason: FLUSH AFTER USING IV ACCESS Last Admin: 02/05/18 08:26 Dose: 2 ml Allergies Allergy/AdvReac Type Severity Reaction Status Date / Time acetaminophen Allergy Severe ITCHING Verified 02/05/18 07:51 "BUT I CAN TAKE WITH A BENADRYL" hydrocodone Allergy Severe ITCHING Verified 02/05/18 07:51 "BUT I CAN TAKE WITH A BENADRYL" morphine AdvReac Severe Nausea/Vomi Verified 02/05/18 07:51 ting/ITCH Home Medications Medication Instructions Recorded Confirmed Type albuterol sulfate [Proventil HFA] 2 puff INHALATION Q4-6H PRN 02/05/18 02/05/18 History amlodipine 5 mg PO DAILY 02/05/18 02/05/18 History bimatoprost 1 drp OPHTHALMIC (EYE) QPM 02/05/18 02/05/18 History brinzolamide-brimonidine 1 drp OPHTHALMIC (EYE) DAILY 02/05/18 02/05/18 History cyclobenzaprine 5 mg PO TID 02/05/18 02/05/18 History furosemide mg PO DAILY 02/05/18 History prednisolone acetate 1 drp OPHTHALMIC (EYE) DAILY 02/05/18 02/05/18 History prednisone 5 mg PO DAILY 02/05/18 02/05/18 History Exam Vital signs: Vital Signs 02/05/18 07:47 02/05/18 08:01 02/05/18 08:09 Temperature 98.3 F Pulse Rate 80 76 Respiratory Rate 20 18 Blood Pressure 144/84 H 139/72 Pulse Oximetry 97 99 99 02/05/18 08:10 02/05/18 08:14 02/05/18 10:48 Temperature Pulse Rate 57 L 58 L Respiratory Rate 27 H Blood Pressure Pulse Oximetry 94 L 02/05/18 11:45 Temperature Pulse Rate 64 Respiratory Rate 18 Blood Pressure 128/85 Pulse Oximetry 96 Intake & Output 02/04/18 02/05/18 02/05/18 18:59 06:59 18:59 Intake Total 1999 Balance 1999 Weight 73.5 kg Intake: IV 1999 NS Inj 1,000 ML @ 1000 mls/hr 1999 IV.SIG BOLUS [facility] Rx#:[id number] Other: Date of Last Bowel Movement 02/05/18 Weight On Admission 73.5 kg - Constitutional no acute distress - Routine HEENT Exam Head: Present: normocephalic - Routine Neck Exam Present: supple - Routine Respiratory Exam Present: CTA bilaterally. Absent: accessory muscle use - Routine Cardiovascular Exam Present: RRR, S1, S2 - Routine Abdominal Exam Present: soft, normoactive bowel sounds, tenderness. Absent: distended, guarding, firm - Routine Skin Exam Present: dry, warm. Absent: pallor - Routine Neurological Exam Present: alert, oriented X3 Results - Labs CBC & Chem 7: 02/06/18 04:03 02/06/18 04:03 Labs: Laboratory Results - last 24 hr 02/05/18 02/05/18 02/05/18 08:18 08:18 08:18 WBC 7.5 RBC 4.98 Hgb 12.1 Hct 37.0 MCV 74.3 L MCH 24.4 L MCHC 32.8 RDW 13.8 Plt Count 200 MPV 9.2 Neut % (Auto) 62.8 Lymph % (Auto) 27.7 [place] % (Auto) 5.9 Eos % (Auto) 3.3 Baso % (Auto) 0.3 Neut # (Auto) 4.7 Lymph # (Auto) 2.1 [place] # (Auto) 0.4 Eos # (Auto) 0.3 Baso # (Auto) 0.0 WBC Differential . Differential Comment Auto diff final PT 10.0 INR 1.0 APTT 24.7 Sodium 141 Potassium 3.3 L Chloride 108 H Carbon Dioxide 23.7 Anion Gap 9 BUN 18 Creatinine 0.89 Estimated GFR 78 L Random Glucose 105 Calcium 8.7 Magnesium 1.9 Total Bilirubin 0.4 AST 32 ALT 31 Alkaline Phosphatase 83 Troponin I Less than 0.02 L Total Protein 7.4 Albumin 3.7 Lipase 123 Urine Color Urine Clarity Urine pH Ur Specific [place] Urine Protein Urine Glucose (UA) Urine Ketones Urine Occult Blood Urine Nitrate Urine Bilirubin Urine Urobilinogen Ur Leukocyte Esterase Urine RBC Urine WBC Ur Squamous Epith Cells Hyaline Casts Granular Casts Urine Mucus Micro UA Comment Ur Microscopic Review Urine Culture Comments Blood Type Antibody Screen 02/05/18 02/05/18 08:18 09:45 WBC RBC Hgb Hct MCV MCH MCHC RDW Plt Count MPV Neut % (Auto) Lymph % (Auto) [place] % (Auto) Eos % (Auto) Baso % (Auto) Neut # (Auto) Lymph # (Auto) [place] # (Auto) Eos # (Auto) Baso # (Auto) WBC Differential Differential Comment PT INR APTT Sodium Potassium Chloride Carbon Dioxide Anion Gap BUN Creatinine Estimated GFR Random Glucose Calcium Magnesium Total Bilirubin AST ALT Alkaline Phosphatase Troponin I Total Protein Albumin Lipase Urine Color Yellow Urine Clarity Hazy H Urine pH 5.0 Ur Specific [place] 1.020 Urine Protein Negative Urine Glucose (UA) Negative Urine Ketones Negative Urine Occult Blood Moderate H Urine Nitrate Negative Urine Bilirubin Negative Urine Urobilinogen 2.0 H Ur Leukocyte Esterase Negative Urine RBC 4 H Urine WBC 1 Ur Squamous Epith Cells 1 Hyaline Casts 8 Granular Casts 4 Urine Mucus Few H Micro UA Comment Culture not ind Ur Microscopic Review Not Reportable Urine Culture Comments Culture not ind Blood Type B Positive Antibody Screen Negative - Imaging Impressions Abdomen/Pelvis CT 02/05/18 08:05 CONCLUSION: 1. Diverticulosis of the descending and sigmoid colon. No evidence of acute diverticulitis. Assessment and Plan (1) GI (gastrointestinal bleed) Status: Acute Code(s): K92.2 - Gastrointestinal hemorrhage, unspecified - Plan This patient is a 62-year-old female with a history of asthma, hypertension, glaucoma, elevated cholesterol, COPD, congestive heart failure, and colonic polyps. Surgical history includes tubal ligation and back surgery. This patient presented to the emergency room at [facility] on 02/05/2018 with report of rectal bleeding. Upon consultation, patient reports that she was experiencing constipation with with no BM for 2-3 days prior to bleeding. 2 days ago patient states that she noticed a large dark red blood clot per rectum x1 episode. Yesterday she endorses having increasing lower abdominal cramping and passing dark blood clots per rectum. She states that she was up about every 2 hours into the evening and last night passing clots without any noted stool. Patient denies any use of NSAIDs or aspirin. She denies any use of blood thinners. She states last colonoscopy was done 2-3 years ago and that she was told polyps were found to be benign. Patient denies ever having had an EGD in the past. She states she normally has 1-2 soft brown bowel movements every morning. Denies any previous rectal bleeding. Denies any known family history for gastrointestinal disorders. Patient states that she smokes half a pack of cigarettes daily and also drinks 2-3 glasses of jitendra each week. Patient denies heartburn or difficulty swallowing. She denies significant weight loss but does endorse decreased appetite over the last 8 months with a 3 pound weight loss. GI bleed Patient endorses 2-3 days with constipation and no bowel movement prior to experiencing dark red blood clots per rectum. 02/05/2018 CT abdomen and pelvis revealed the following--Diverticulosis of the descending and sigmoid colon. No evidence of acute diverticulitis. 02/05/2018 WBC 7.5 hemoglobin 12.1 hematocrit 37.0 platelet count 200 INR 1.0 Plan -Clear liquid diet today -N.p.o. after midnight -Obtain consent for EGD and colonoscopy -GoLYTELY prep -PPI -Antiemetic as per attending -Monitor for bleeding -Monitor hemoglobin and hematocrit -Supportive care -Further recommendations to follow This patient has been seen by myself and Dr. Hendrix and this note is written on his behalf - Attending Attestation Dr. Hendrix
[2018-02-05] MEDS ORDERED: PEG 3350/E-Lyte Soln 4000 ML Bottle PO ONE (16:00)
[2018-02-05 16:10] LABS: Hematocrit 36.4 % (35.0-46.0); Hemoglobin 11.7 gm/dL (11.6-15.3)
[2018-02-05] MEDS: Latanoprost 0.005% Opth Drops 2.5 ML Bottle EACH EYE SCH (17:17)
[2018-02-05 19:45] LABS: Hematocrit 34.7 % (35.0-46.0); Hemoglobin 10.8 gm/dL (11.6-15.3)
[2018-02-05] MEDS ORDERED: Melatonin 5 MG Tablet PO ONE (21:45)
[2018-02-06] MEDS ORDERED: Metoprolol Tartrate 25 MG Tablet PO ONE (03:41)
[2018-02-06] MEDS ORDERED: Chlorhexidine Gluconate 2% 1 Pack (2 Cloths) TOPICAL ONE (03:41)
[2018-02-06] MEDS ORDERED: Sodium Chlor 0.9% Inj 500 ML IV.SIG SCH (04:00)
[2018-02-06 06:09] LABS: Baso % (Auto) 0.4 % (0.0-2.0); Eos # (Auto) 0.2 th/mm3 (0.0-0.4); Eos % (Auto) 3.2 % (0.0-4.0); Hematocrit 30.5 % (35.0-46.0); Lymph # (Auto) 1.5 th/mm3 (1.0-4.8); Lymph % (Auto) 25.6 % (9.0-44.0); Mean Corpuscular HGB Conc 32.7 % (32.0-36.0); Mean Corpuscular Hemoglobin 24.5 pg (27.0-34.0); Mean Corpuscular Volume 74.9 fL (80.0-100.0); Mean Platelet Volume 9.9 fL (7.0-11.0); Mono # (Auto) 0.4 th/mm3 (0.0-0.9); Mono % (Auto) 6.6 % (0.0-8.0); Neut # (Auto) 3.7 th/mm3 (1.8-7.7); Neut % (Auto) 64.2 % (16.0-70.0); Platelet Count 140 th/mm3 (150-450); Red Blood Count 4.08 mil/mm3 (4.00-5.30); Red Cell Distribution Width 14.1 % (11.6-17.2); White Blood Count 5.7 th/mm3 (4.0-11.0)
[2018-02-06 06:56] LABS: Anion Gap 9 meq/L (5-15); Blood Urea Nitrogen 5 mg/dL (7-18); Chloride 110 meq/L (98-107); Glomerular Filtration Rate Greater Than 89 mL/min (>89); Glucose,Random 85 mg/dL (74-106); Potassium 3.3 meq/L (3.5-5.1); Sodium 145 meq/L (136-145)
[2018-02-06] MEDS: Pantoprazole Inj 40 MG Vial IV.PUSH SCH (08:01)
[2018-02-06] MEDS ORDERED: SIMBRINZA EACH EYE SCH (09:00)
[2018-02-06] MEDS: prednisoLONE Acetate 1% Opth Susp 5 ML Bottle EACH EYE SCH (09:00)
[2018-02-06] MEDS ORDERED: EYE EACH EYE SCH (09:00)
[2018-02-06] MEDS ORDERED: [UNRECOGNIZED DRUG - OTHER] EACH EYE SCH (09:00)
--- NOTE | 2018-02-06 09:44 | GIPROC ---
[facility] [address] [facility]. [facility], [address] EGD PROCEDURE REPORT EXAM DATE: 02/06/2018 PATIENT NAME: Melissa Vick MR #: [id number] BIRTHDATE: 1955 ATTENDING: Aletha Cooper MD ORDER #: [id number] PRECISION LAYOUT WORKER: Hemant Garcia and Adia Aquino STATUS: inpatient INDICATIONS: The patient is a 62 yr old female here for an EGD due to hematochezia PROCEDURE PERFORMED: EGD w/ biopsy MEDICATIONS: Per Anesthesia and None. TOPICAL ANESTHETIC: none CONSENT: The patient understands the risks and benefits of the procedure and understands that these risks include, but are not limited to: sedation, allergic reaction, infection, perforation and/or bleeding. Alternative means of evaluation and treatment include, among others: physical exam, x-rays, and/or surgical intervention. The patient elects to proceed with this endoscopic procedure. medical equipment was checked for proper function. Hand hygiene and appropriate measures for infection prevention was taken. After the risks, benefits and alternatives of the procedure were thoroughly explained, Informed consent was verified, confirmed and timeout was successfully executed by the treatment team. The patient was anesthetized with topical anesthesia and the EC-3490Li (Pedi C) endoscope was introduced through the mouth and advanced to the third portion of the duodenum. Retroflexed views revealed no abnormalities The gastroscope was then slowly withdrawn and removed. ESOPHAGUS: The mucosa of the esophagus appeared normal. STOMACH: There was mild gastritis in the gastric antrum. Multiple biopsies were performed using cold forceps. Sample sent for histology. DUODENUM: Moderate duodenal inflammation was found in the 2nd part of the duodenum. ADVERSE EVENTS: There were no complications. IMPRESSIONS: 1. The esophagus appeared normal 2. There was mild gastritis in the gastric antrum; multiple biopsies were performed 3. Duodenal inflammation was found in the 2nd part of the duodenum 4. Retroflexed views revealed no abnormalities RECOMMENDATIONS: 1. Await biopsy results. Biopsy results will not be ready for 7-10 days. If you don't hear from us in two weeks, call our office for biopsy results. 2. Continue PPI 3. Avoid NSAIDS PATIENT CONDITION: stable DISPOSITION: Observation REPEAT EXAM: NONE Aletha Cooper MD eSigned: Aletha Cooper MD 02/06/2018 9:43 AM cc: PATIENT NAME: Melissa Vick Manoj MR#: [id number]
--- NOTE | 2018-02-06 09:47 | GIPROC ---
[facility] [address] [facility]. [facility], [address] COLONOSCOPY PROCEDURE REPORT EXAM DATE: 02/06/2018 PATIENT NAME: Melissa Vick MR #: [id number] BIRTHDATE: 1955 ENDOSCOPIST: Aletha Cooper MD ORDER #: [id number] PROPERTY DEVELOPER: Hemant Garcia and Adia Aquino STATUS: inpatient INDICATIONS: The patient is a 62 yr old female here for a colonoscopy due to rectal bleeding PROCEDURE PERFORMED: Colonoscopy with polypectomy MEDICATIONS: Per Anesthesia and None. PREP QUALITY: fair PREP TYPE:Magnesium Citrate ESTIMATED BLOOD LOSS: None CONSENT: The patient understands the risks and benefits of the procedure and understands that these risks include, but are not limited to: sedation, allergic reaction, infection, perforation and/or bleeding. Alternative means of evaluation and treatment include, among others: physical exam, x-rays, and/or surgical intervention. The patient elects to proceed with this endoscopic procedure. medical equipment was checked for proper function. Hand hygiene and appropriate measures for infection prevention was taken. After the risks, benefits and alternatives of the procedure were thoroughly explained, Informed consent was verified, confirmed and timeout was successfully executed by the treatment team. A digital exam revealed no abnormalities of the rectum The Pentax EC-3490Li endoscope was introduced through the anus and advanced to the cecum, which was identified by both the appendix and ileocecal valve. The instrument was then slowly withdrawn as the colon was fully examined. COLON FINDINGS: There was severe diverticulosis noted in the sigmoid colon, descending colon, and ascending colon with associated tortuosity, muscular hypertrophy and luminal narrowing. A polypoid shaped pedunculated polyp measuring 10 mm in size with a friable surface was found in the sigmoid colon. A polypectomy was performed using snare cautery. The resection was complete and the polyp tissue was completely retrieved. Retroflexed views revealed internal hemorrhoids and Retroflexed views revealed large internal hemorrhoids The scope was then completely withdrawn from the patient and the procedure terminated. PROCEDURE WITHDRAWAL TIME:8minutes ADVERSE EVENTS: There were no complications. IMPRESSIONS: 1. There was severe diverticulosis noted in the sigmoid colon, descending colon, and ascending colon 2. A pedunculated polyp was found in the sigmoid colon; polypectomy was performed using snare cautery 3. Retroflexed views revealed internal hemorrhoid RECOMMENDATIONS: 1. Await biopsy results. Biopsy results will not be ready for 7-10 days. If you don't hear from us in two weeks, call our office for results. 2. No seeds, nuts and popcorn in diet 3. High fiber diet RECALL: Colonoscopy, pending biopsy results Aletha Cooper MD eSigned: Aletha Cooper MD 02/06/2018 9:47 AM cc: PATIENT NAME: Melissa Vick MR#: [id number]
--- NOTE | 2018-02-06 14:37 | P.PNIM ---
Subjective Interval history: cc: follow up rectal bleed Patient seen and examined status post EGD and colonoscopy per GI. She reports diffuse, generalized abdominal discomfort and is asking if she could have something for gas. Patient encouraged to ambulate to assist with passing gas. Patient denies rectal bleed since undergoing colonoscopy. Physical Exam Vital signs: Last Vital Signs Temp 97.8 F 02/06/18 12:00 Pulse 62 02/06/18 12:00 Resp 20 02/06/18 12:00 BP 166/71 H 02/06/18 12:00 Pulse Ox 97 02/06/18 12:00 Intake & Output 02/04/18 02/05/18 02/06/18 02/07/18 06:59 06:59 06:59 06:59 Intake Total 3000 / 3000 300 / 300 Output Total 500 / 500 Balance 2500 / 2500 300 / 300 Weight 73.5 kg Narrative: GENERAL: mild distress secondary to gaseous distention SKIN: warm and dry HEAD: normocephalic, atraumatic EYES: no scleral icterus. No injection or drainage. PERRLA. NECK: Supple, trachea midline. No JVD or lymphadenopathy. CARDIOVASCULAR: Regular rate and rhythm without murmurs, gallops, or rubs. RESPIRATORY: Breath sounds equal bilaterally. No accessory muscle use. GASTROINTESTINAL: Abdomen soft, mild, diffuse tenderness, nondistended. MUSCULOSKELETAL: No cyanosis, or edema. Results Labs CBC & Chem 7: 02/06/18 04:03 02/06/18 04:03 Procedures Procedures: EGD 02/06/18: IMPRESSIONS: 1. The esophagus appeared normal 2. There was mild gastritis in the gastric antrum; multiple biopsies were performed 3. Duodenal inflammation was found in the 2nd part of the duodenum 4. Retroflexed views revealed no abnormalities Colonoscopy 02/06/18: IMPRESSIONS: 1. There was severe diverticulosis noted in the sigmoid colon, descending colon, and ascending colon 2. A pedunculated polyp was found in the sigmoid colon; polypectomy was performed using snare cautery 3. Retroflexed views revealed internal hemorrhoid Assessment and Plan (1) GI (gastrointestinal bleed): Code(s): K92.2 - Gastrointestinal hemorrhage, unspecified Status: Acute Plan Patient is a 62 year old -[place] female who presented after noticing rectal bleeding with bowel movements. Hx of colonoscopy 2-3 yrs ago with polyps. #. Suspected GI bleed with dark red blood per rectum - reviewed 02/06/18 -GI consulted -s/p EGD 02/06/18 -> mild gastritis in gastric antrum, s/p multiple biopsies. Duodenal inflammation in 2nd part of duodenum. Outpatient f/u in 7-10 days for biopsy results. PPI, avoid NSAID's. -s/p colonscopy 02/06/18 -> severe diverticulosis sigmoid colon, descending colon and ascending colon. A pedunculated polyp found in sigmoid colon; polypectomy performed using snare cautery. Internal hemorrhoids. F/u biopsy results 7-10 days. No seeds, nuts or popcorn in diet. High fiber diet. #. Asthma with no evidence of acute exacerbation - reviewed 02/06/18, stable -duonebs PRN -supplemental O2 PRN #. Glaucoma, chronic and stable -resume home eye drops #. Hypokalemia, mild - reviewed 02/06/18, unchanged -continue IV fluids with KCL supplementation -repeat BMP in am MDM: self Code: Full GI ppx: PPI DVT ppx: SCD's Progress Note: Quality VTE Deep Vein Thrombosis/Pulmonary Embolism Present on Admission: No _ (1) GI (gastrointestinal bleed) Qualifiers: GI bleed type/associated pathology: Gastritis type:
[2018-02-06] MEDS: Latanoprost 0.005% Opth Drops 2.5 ML Bottle EACH EYE SCH (17:07)
[2018-02-06 22:52] VITALS: RESP 18
[2018-02-07 06:54] LABS: Baso % (Auto) 0.3 % (0.0-2.0); Eos # (Auto) 0.2 th/mm3 (0.0-0.4); Eos % (Auto) 2.8 % (0.0-4.0); Hematocrit 32.8 % (35.0-46.0); Hemoglobin 10.6 gm/dL (11.6-15.3); Lymph # (Auto) 1.5 th/mm3 (1.0-4.8); Lymph % (Auto) 28.3 % (9.0-44.0); Mean Corpuscular HGB Conc 32.3 % (32.0-36.0); Mean Corpuscular Hemoglobin 24.4 pg (27.0-34.0); Mean Corpuscular Volume 75.6 fL (80.0-100.0); Mean Platelet Volume 9.3 fL (7.0-11.0); Mono # (Auto) 0.4 th/mm3 (0.0-0.9); Mono % (Auto) 8.2 % (0.0-8.0); Neut # (Auto) 3.2 th/mm3 (1.8-7.7); Neut % (Auto) 60.4 % (16.0-70.0); Platelet Count 147 th/mm3 (150-450); Red Blood Count 4.34 mil/mm3 (4.00-5.30); Red Cell Distribution Width 14.2 % (11.6-17.2); White Blood Count 5.3 th/mm3 (4.0-11.0)
[2018-02-07 06:59] LABS: Anion Gap 7 meq/L (5-15); Blood Urea Nitrogen 5 mg/dL (7-18); Calcium 8.7 mg/dL (8.5-10.1); Carbon Dioxide 27.9 meq/L (21.0-32.0); Chloride 106 meq/L (98-107); Glomerular Filtration Rate Greater Than 89 mL/min (>89); Glucose,Random 85 mg/dL (74-106); Potassium 3.3 meq/L (3.5-5.1); Sodium 141 meq/L (136-145)
--- NOTE | 2018-02-07 08:53 | P.DS ---
DS: Providers Date of admission: 02/05/18 10:38 Primary care physician: Nereyda Day Consults: 02/05/18 10:52 Consult to Gastroenterology Routine Consulting Provider: Natalia Yadav Reason for Consultation: rectal bleed. Notified:: Service Spoke with:: ELSY Date Notified:: 02/05/18 Time Notified:: 10:56 Ordering Provider: HE Brief History from admission: patient is a 62 y/o female with history of asthma, hypertension, glaucoma who presented to ER with rectal bleed. she says that she was at her usual state of health when she started to have rectal bleed. she says that the other night when she had a bowel movement she noticed some blood clots. this happened again last night and this morning which made her to come to the hospital. she's complaining of mild generalized abdominal pain. she had some chills and sob along with mild dizziness but with no fever or emesis. she had colonoscopy two- three years ago when she was reportedly found to have polyps. DS: Diagnosis Discharge Diagnosis (1) GI (gastrointestinal bleed): Status: Acute (2) Colon polyp: Status: Acute (3) Diverticulosis: Status: Acute (4) Gastritis and duodenitis: Status: Acute DS: Summary Patient was admitted under the care of the hospitalist service for suspected GI bleed. She was seen in consultation by GI specialist Dr Cooper. Patient was started on a PPI, clear liquid diet. EGD and colonoscopy were discussed with patient for further evaluation and treatment recommendation. Risks, benefits vs alternatives were discussed with patient per GI and she consented to procedures. She underwent a colonoscopy 02/06/18 that showed severe diverticulosis in the sigmoid colon, descending colon and ascending colon. A peduncultated polyp was found in the sigmoid colon; polypectomy was performed using snare cautery. Patient was also noted to have internal hemorrhoids. GI recommended a high fiber diet with no seeds, nuts and popcorn in the diet. Patient further underwent an EGD 02/06/18 and this showed mild gastritis in the gastric antrum, muliple biopsies were performed. Duodenal inflammation was found in the 2nd part of the duodenum. Patient was educated to avoid NSAID's. She was continued on PPI. Her hemoglobin and hematocrit remained stable overnight. Patient was advised to follow up with GI specialist Dr Cooper in 2 weeks for her biopsy results. She has an appointment scheduled with her PCP at 10:30 am. She was advised to notify her PCP of her recent hospitalization. Patient was hemodynamically stable at time of discharge. Time spent discussing smoking cessation with patient: 3 to 10 minutes Status at Discharge Functional status at discharge: independent ambulation Overall status at discharge: patient is back to baseline Time Spent with Patient Total time spent providing and/or coordinating discharge services: Greater than 30 minutes Quality: VTE Deep Vein Thrombosis/Pulmonary Embolism Present on Admission: No Exam Narrative Exam Narrative: GENERAL: no acute distress, well nourished SKIN: warm and dry HEAD: atraumatic, normocephalic EYES: Pupils equal and round. No scleral icterus. No injection or drainage. ENT: mucous membranes pink and moist. NECK: Trachea midline. No JVD. CARDIOVASCULAR: Regular rate and rhythm, S1 S2, no murmur, rub or gallop RESPIRATORY: No accessory muscle use. Clear to auscultation. Breath sounds equal bilaterally. GASTROINTESTINAL: Abdomen soft, non-tender, nondistended. MUSCULOSKELETAL: Extremities without clubbing, cyanosis, or edema. No obvious deformities. NEUROLOGICAL: Awake and alert. No obvious cranial nerve deficits. Motor grossly within normal limits. Normal speech. PSYCHIATRIC: Appropriate mood and affect; insight and judgment normal. Results Procedures completed during hospitalization: EGD 02/06/18: IMPRESSIONS: 1. The esophagus appeared normal 2. There was mild gastritis in the gastric antrum; multiple biopsies were performed 3. Duodenal inflammation was found in the 2nd part of the duodenum 4. Retroflexed views revealed no abnormalities Colonoscopy 02/06/18: IMPRESSIONS: 1. There was severe diverticulosis noted in the sigmoid colon, descending colon, and ascending colon 2. A pedunculated polyp was found in the sigmoid colon; polypectomy was performed using snare cautery 3. Retroflexed views revealed internal hemorrhoid Pending studies at discharge: Pending at discharge 02/06/18 13:34 Surgical [PTH] Routine Labs on day of discharge: Labs from last 24 hours 02/07/18 02/07/18 05:21 05:21 WBC 5.3 RBC 4.34 Hgb 10.6 L Hct 32.8 L MCV 75.6 L MCH 24.4 L MCHC 32.3 RDW 14.2 Plt Count 147 L MPV 9.3 Neut % (Auto) 60.4 Lymph % (Auto) 28.3 [place] % (Auto) 8.2 H Eos % (Auto) 2.8 Baso % (Auto) 0.3 Neut # (Auto) 3.2 Lymph # (Auto) 1.5 [place] # (Auto) 0.4 Eos # (Auto) 0.2 Baso # (Auto) 0.0 WBC Differential . Differential Comment Auto diff final Sodium 141 Potassium 3.3 L Chloride 106 Carbon Dioxide 27.9 Anion Gap 7 BUN 5 L Creatinine 0.72 Estimated GFR Greater than 89 Random Glucose 85 Calcium 8.7 Impressions ITS Impressions Abdomen/Pelvis CT 02/05/18 08:05 CONCLUSION: 1. Diverticulosis of the descending and sigmoid colon. No evidence of acute diverticulitis. Discharge Plan Discharge Disposition Patient Disposition: Discharge Home Discharge Condition Condition: Stable Discharge Order Discharge Orders: Discharge Order (Routine); Ordered 02/07/18 Ordered By: Aaron Mehta Discharge Details Anticipated Discharge Date: 02/07/18 Physicians Team ED Provider: Zacarias Garcia Primary Care Provider: Nereyda Day, Attending Provider: Bernabe Alfaro Other Providers: Natalia Yadav Rxs /Orders / Referrals /Forms Prescriptions: New pantoprazole 40 mg tablet,delayed release (DR/EC) 40 mg PO DAILY 14 Days Qty: 14 RF: 0 Continue prednisone 5 mg Tablet 5 mg PO DAILY RF: 0 furosemide 20 mg Tablet 20 mg PO DAILY RF: 0 cyclobenzaprine 5 mg Tablet 5 mg PO TID RF: 0 amlodipine 5 mg Tablet 5 mg PO DAILY RF: 0 albuterol sulfate [Proventil HFA] 90 mcg/actuation Hfa Aerosol Inhaler 2 puff INHALATION Q4-6H PRN (Reason: Wheezing) RF: 0 bimatoprost 0.01 % Drops 1 drp OPHTHALMIC (EYE) QPM RF: 0 prednisolone acetate 1 % Drops,Suspension 1 drp OPHTHALMIC (EYE) DAILY RF: 0 brinzolamide-brimonidine 1-0.2 % Drops,Suspension 1 drp OPHTHALMIC (EYE) DAILY RF: 0 Referrals: Aletha Cooper MD [Physician] - 02/21/18 12:00 am (please follow up for your EGD and colonoscopy biopsy results) [Primary Care Provider] - See Instructions Discharge Instructions Patient Printed Instructions: Gastrointestinal Bleeding (DC), High Fiber Diet ( ED), Anemia (DC), Colonoscopy (DC) Additional Instructions: Your Health Problems: Goals to Promote Your Health: * To prevent worsening of your condition * To maintain your health at the optimal level Directions to Meet Your Goals: * Take your medications as prescribed * Follow your dietary instruction * Follow activity as directed * Keep your appointments as scheduled * Take your immunizations and boosters as scheduled * If your symptoms worsen call your PCP * If no PCP go to Urgent Care or Emergency Room Smoking is dangerous to your health. Avoid second hand smoke. You may reach the 24-hour crisis hotline for domestic abuse at . Post Discharge Care Plan Care Plan Goals: Keep or make your follow up appointment as recommended by your providers. Take medications as directed. Discharge Interventions Interventions: Discharge Planning - Case Management Last Done: 02/07/18 08:38 Status ED Status: Left Department
[2018-02-07] MEDS ORDERED: amLODIPine 5 MG Tablet PO SCH (09:00)
[2018-02-07] MEDS ORDERED: Furosemide 20 MG Tablet PO SCH (09:00)
[2018-02-07] MEDS ORDERED: predniSONE 5 MG Tablet PO SCH (09:00)
[2018-02-07 09:15] VITALS: BP 160/73; PULSE 68; TEMP 98.8; O2SAT 97
[2018-02-07] MEDS: Pantoprazole Inj 40 MG Vial IV.PUSH SCH (09:16)
[2018-02-07] MEDS: prednisoLONE Acetate 1% Opth Susp 5 ML Bottle EACH EYE SCH (09:17)
--- NOTE | 2018-02-07 17:28 | P.PNGI ---
Subjective Interval history: 1000 Patient sitting up in bed Denies abdominal pain nausea or vomiting Denies any noted bleeding Stable for discharge home today and agrees to follow-up with GI post discharge <Huong Farias - Last Filed: 02/07/18 17:22> Physical Exam Vital signs: Vital Signs 02/06/18 17:32 02/06/18 18:00 02/06/18 20:00 Temperature 98.1 F Pulse Rate 76 77 Respiratory Rate 16 18 Blood Pressure 169/82 H 173/76 H Pulse Oximetry 98 93 L 02/07/18 00:00 02/07/18 03:50 02/07/18 09:14 Temperature 97.9 F 98.7 F 98.8 F Pulse Rate 61 64 68 Respiratory Rate 18 18 18 Blood Pressure 192/79 H 154/85 H 160/73 H Pulse Oximetry 94 L 98 97 02/07/18 09:47 Temperature Pulse Rate Respiratory Rate 18 Blood Pressure Pulse Oximetry Intake & Output 02/06/18 02/07/18 02/07/18 18:59 06:59 18:59 Intake Total 780 / 780 560 / 560 380 / 380 Output Total 1200 / 1200 Balance 780 / 780 560 / 560 -820 / -820 Weight 74.1 kg Intake: Oral 480 / 480 560 / 560 380 / 380 Anesthesia Amount 300 / 300 Output: Urine 1200 / 1200 Other: # Voids 2 6 Date of Last Bowel Movement 02/06/18 # Bowel Movements 0 1 - Constitutional no acute distress - Routine HEENT Exam Head: Present: normocephalic - Routine Respiratory Exam Present: CTA bilaterally. Absent: accessory muscle use - Routine Abdominal Exam Present: soft, normoactive bowel sounds. Absent: tenderness, distended, guarding, firm - Routine Skin Exam Present: dry, warm - Routine Neurological Exam Present: alert, oriented X3 <Huong Farias - Last Filed: 02/07/18 17:22> Vital signs: Intake & Output 02/07/18 02/08/18 02/08/18 18:59 06:59 18:59 Intake Total 380 / 380 Output Total 1200 / 1200 Balance -820 / -820 Intake: Oral 380 / 380 Output: Urine 1200 / 1200 Other: Date of Last Bowel Movement 02/06/18 # Bowel Movements 1 <Aletha Cooper - Last Filed: 02/08/18 11:18> Results - Labs CBC & Chem 7: 02/07/18 05:21 02/07/18 05:21 Laboratory Results - last 24 hr 02/07/18 02/07/18 05:21 05:21 WBC 5.3 RBC 4.34 Hgb 10.6 L Hct 32.8 L MCV 75.6 L MCH 24.4 L MCHC 32.3 RDW 14.2 Plt Count 147 L MPV 9.3 Neut % (Auto) 60.4 Lymph % (Auto) 28.3 [place] % (Auto) 8.2 H Eos % (Auto) 2.8 Baso % (Auto) 0.3 Neut # (Auto) 3.2 Lymph # (Auto) 1.5 [place] # (Auto) 0.4 Eos # (Auto) 0.2 Baso # (Auto) 0.0 WBC Differential . Differential Comment Auto diff final Sodium 141 Potassium 3.3 L Chloride 106 Carbon Dioxide 27.9 Anion Gap 7 BUN 5 L Creatinine 0.72 Estimated GFR Greater than 89 Random Glucose 85 Calcium 8.7 - Procedures EGD 02/06/18: IMPRESSIONS: 1. The esophagus appeared normal 2. There was mild gastritis in the gastric antrum; multiple biopsies were performed 3. Duodenal inflammation was found in the 2nd part of the duodenum 4. Retroflexed views revealed no abnormalities Colonoscopy 02/06/18: IMPRESSIONS: 1. There was severe diverticulosis noted in the sigmoid colon, descending colon, and ascending colon 2. A pedunculated polyp was found in the sigmoid colon; polypectomy was performed using snare cautery 3. Retroflexed views revealed internal hemorrhoid <Huong Farias - Last Filed: 02/07/18 17:22> - Labs CBC & Chem 7: 02/07/18 05:21 02/07/18 05:21 <Aletha Cooper - Last Filed: 02/08/18 11:18> Assessment and Plan (1) GI (gastrointestinal bleed) Status: Acute Code(s): K92.2 - Gastrointestinal hemorrhage, unspecified - Plan This patient is a 62-year-old female with a history of asthma, hypertension, glaucoma, elevated cholesterol, COPD, congestive heart failure, and colonic polyps. Surgical history includes tubal ligation and back surgery. This patient presented to the emergency room at [facility] on 02/05/2018 with report of rectal bleeding. Upon consultation, patient reports that she was experiencing constipation with with no BM for 2-3 days prior to bleeding. 2 days ago patient states that she noticed a large dark red blood clot per rectum x1 episode. Yesterday she endorses having increasing lower abdominal cramping and passing dark blood clots per rectum. She states that she was up about every 2 hours into the evening and last night passing clots without any noted stool. Patient denies any use of NSAIDs or aspirin. She denies any use of blood thinners. She states last colonoscopy was done 2-3 years ago and that she was told polyps were found to be benign. Patient denies ever having had an EGD in the past. She states she normally has 1-2 soft brown bowel movements every morning. Denies any previous rectal bleeding. Denies any known family history for gastrointestinal disorders. Patient states that she smokes half a pack of cigarettes daily and also drinks 2-3 glasses of jitendra each week. Patient denies heartburn or difficulty swallowing. She denies significant weight loss but does endorse decreased appetite over the last 8 months with a 3 pound weight loss. GI bleed Patient endorses 2-3 days with constipation and no bowel movement prior to experiencing dark red blood clots per rectum. 02/05/2018 CT abdomen and pelvis revealed the following--Diverticulosis of the descending and sigmoid colon. No evidence of acute diverticulitis. 02/05/2018 WBC 7.5 hemoglobin 12.1 hematocrit 37.0 platelet count 200 INR 1.0 02/07/2018 GI bleed 02/06/2018 colonoscopy: 1. There was severe diverticulosis noted in the sigmoid colon, descending colon, and ascending colon 2. A pedunculated polyp was found in the sigmoid colon; polypectomy was performed using snare cautery 3. Retroflexed views revealed internal hemorrhoid 02/06/2018 EGD: 1. The esophagus appeared normal 2. There was mild gastritis in the gastric antrum; multiple biopsies were performed 3. Duodenal inflammation was found in the 2nd part of the duodenum 4. Retroflexed views revealed no abnormalities 02/07/2018 hemoglobin 10.6 hematocrit 32.8 Patient denies any abdominal pain nausea vomiting or any noted bleeding. Patient agrees to follow-up this week with GI post discharge. Plan -Regular diet as tolerated -Avoid seeds and nuts and popcorn -Antireflux regimen -Follow-up with GI post discharge -Avoid NSAIDs -Continue PPI -Patient stable for discharge from GI standpoint This patient has been seen by myself and Dr. Cooper in this note as written in his behalf - Attending Attestation Dr. Cooper <Huong Farias - Last Filed: 02/07/18 17:22> (1) GI (gastrointestinal bleed) Status: Acute Code(s): K92.2 - Gastrointestinal hemorrhage, unspecified - Attending Attestation Agree with above. <Aletha Cooper - Last Filed: 02/08/18 11:18>
== END 2018-02-07 11:05 | disposition home or self-care (01) ==
LOC: NEPE 07:45 → NEDA 10:38 → INTOOBSV 10:38 → NEDA 12:15 → N06 12:17
PROVIDERS: ADMIT Internal Medicine; ATTEND Internal Medicine
DX: H40.9 Unspecified glaucoma; I50.9 Heart failure, unspecified; K63.5 Polyp of colon; K57.33 Diverticulitis of large intestine without perforation or abscess with bleeding; I11.0 Hypertensive heart disease with heart failure; Z23 Encounter for immunization; J44.9 Chronic obstructive pulmonary disease, unspecified; K29.70 Gastritis, unspecified, without bleeding; E87.6 Hypokalemia; K64.8 Other hemorrhoids; K29.80 Duodenitis without bleeding; F17.210 Nicotine dependence, cigarettes, uncomplicated; E78.00 Pure hypercholesterolemia, unspecified; Z79.899 Other long term (current) drug therapy